=== PATIENT | female | born 1965 | race Caucasian/White ===

== ENCOUNTER 2017-07-18 20:23 | Observation (INO) ==
[2017-07-18] MEDS ORDERED: 0.9 % Sodium Chloride 1,000 ML IVC ONE (20:37)
[2017-07-18 22:13] LABS: Bilirubin,Urine Negative (Negative); Blood,Urine Negative (Negative); Clarity,Urine Clear (Clear); Color,Urine Yellow (Yellow); Glucose,Urine (UA) Normal (Normal); Ketones,Urine Negative (Negative); Leukocyte Esterase,Urine Negative (Negative); Nitrite,Urine Negative (Negative); Protein,Urine 100 mg/dL (Neg-Trace); Specific Gravity,Urine 1.016 (1.010-1.025); Urobilinogen,Urine Normal (Normal)
[2017-07-18] MEDS ORDERED: Ipratropium/Albuterol Neb 3 ML IH ONE (22:14)
[2017-07-18] MEDS ORDERED: methylPREDNISolone 125 MG/2 ML VIAL IVP ONE (22:14)
[2017-07-18 22:20] LABS: Basophils % 0.3 %; Eosinophils # 0.2 K/mcL (0.0-0.6); Eosinophils % 1.6 %; Hematocrit 41.3 % (35.3-44.9); Hemoglobin 12.3 g/dL (11.5-15.4); Immature Granulocytes % 0.4 % (0-4); Lymphocytes # 4.1 K/mcL (0.6-4.6); Mean Corpuscular HGB Conc 29.8 g/dL (31.6-35.5); Mean Corpuscular Hemoglobin 26.5 pg (28.0-33.3); Mean Corpuscular Volume 88.8 fL (83.0-100.0); Mean Platelet Volume 10.2 fL (9.4-12.4); Monocytes # 0.6 K/mcL (0.0-1.3); Monocytes % 5.1 %; Neutrophils # 6.1 K/mcL (1.6-8.9); Platelet Count 244 K/mcL (140-400); Red Blood Count 4.65 M/mcL (3.82-4.97); Red Cell Distribution Width 15.2 % (11.5-14.5); Segmented Neutrophils % 55.6 %
[2017-07-18 22:21] LABS: Bacteria,Urine None Seen per hpf (None-Few); Hyaline Casts,Urine None Seen per lpf (None-Few); Squamous Epithelial Cell,Urine Moderate per lpf (None-Few); WBC,Urine 0-3 per hpf (0-3)
[2017-07-18 22:22] LABS: Amphetamine Screen,Urine Negative ng/mL (Cutoff=1000); Benzodiazepines Screen,Urine Positive ng/mL (Cutoff=200); Cannabinoid Screen,Urine Positive ng/mL (Cutoff = 50); Cocaine Screen,Urine Negative ng/mL (Cutoff= 300); Opiate Screen,Urine Negative ng/mL (Cutoff=300); Phencyclidine Screen,Urine Negative ng/mL (Cutoff=25)
--- NOTE | 2017-07-18 22:25 | Emergency Department Note ---
Disposition Clinical Impression: Hypoxia, COPD with acute exacerbation Overdose Qualifiers: Encounter type: initial encounter Injury intent: accidental or unintentional Qualified Code(s): T50.901A - Poisoning by unspecified drugs, medicaments and biological substances, accidental (unintentional), initial encounter Disposition: Admitted As Inpatient Condition: Good Referrals: NONE,PCP [Primary Care Provider] - Forms: Work/School Release, ED Satisfaction Letter Time of Disposition: 22:49 General Adult HPI - General Chief complaint: ED General Medical Stated complaint: unresponsive Time Seen by Provider: 07/18/17 20:37 Source: EMS Limitations: altered mental status Nursing Notes Reviewed: Yes Vital Signs Reviewed: Yes - History of Present Illness HPI Narrative: 52 year old female presents to the ED via EMS for unresponsiveness. Patient has a history of opiate overdose and was found unresponsive by a family member unsure for how long she was down. [place] original pusle was 76% and then placed on a nonrebreather and came back up to 96% afer administeration of 4 narcan. Jacob is drowsy upon arrival and difficult historian due to slow response, although answering questions and protecting airway. Jacob denies opitate overdose although family member at bedside confirms it. Jacob states tht she has pain all over and that she is short of breth and has a history f of COPD. She is wheezing on exam. Patient chest pain is midsternal and radaites into her back and her abodmen, associated with shortness of breath, nausea, and vomitting. Pain Scale: 9 - Related Data Allergies Allergy/AdvReac Type Severity Reaction Status Date / Time No Known Allergies Allergy Verified 07/18/17 22:41 Constitutional: Reports: fever, chills, weakness. Denies: weight change Eyes: Denies: eye pain, eye discharge, vision change ENT ED: Denies: ear pain, throat pain, dental pain, hearing loss, epistaxis, congestion, dysphagia Cardiovascular: Reports: chest pain. Denies: palpitations, dyspnea on exertion , edema, syncope Respiratory: Denies: cough, dyspnea, wheezes, hemoptysis, stridor Gastrointestinal: Reports: abdominal pain, nausea, vomiting. Denies: diarrhea, constipation, hematemesis, melena, hematochezia Genitourinary: Denies: dysuria, frequency, hematuria, discharge Musculoskeletal: Reports: back pain. Denies: neck pain, arthralgia, myalgia Integumentary: Denies: rash, abrasion, lesions Neurological: Denies: headache, weakness, numbness, paresthesias, confusion, abnormal gait, vertigo Psychiatric: Denies: anxiety, depression, suicidal thoughts, homicidal thoughts , auditory hallucinations, visual hallucinations Endocrine: Denies: fatigue Hematological/Lymphatic: Denies: easy bleeding, easy bruising Allergic/Immunologic: Denies: facial swelling, urticaria Past Medical History - Past Medical History Medical history: Reports: non-contributory, COPD, CVA Psychiatric history: Reports: anxiety, depression - Social History Smoking Status: Current every day smoker Smokeless Tobacco Status: No Alcohol use: Reports: none Drug use: Reports: prescription drug abuse Physical Exam - General Limitations: altered mental status General appearance: obtunded - Head Head exam: atraumatic, normocephalic, normal inspection - Eye Eye exam: Present: normal appearance, PERRL, EOMI, miosis - Expanded Eye Exam Pupils: Left: reactive - ENT ENT exam: normal exam, normal oropharynx, mucous membranes moist - Expanded ENT Exam External ear exam: Present: normal external inspection Mouth exam: Present: normal external inspection Teeth exam: Present: normal inspection Throat exam: Present: normal inspection - Neck Neck exam: Present: normal inspection, full ROM, trachea midline - Chest Chest inspection: Present: normal inspection, symmetric chest wall rise - Respiratory Respiratory exam: Present: wheezes - Cardiovascular Cardiovascular exam: Present: regular rate, normal rhythm, normal heart sounds - Abdominal Exam Abdominal exam: Present: soft, Non-Tender. Absent: tenderness, distention, guarding, rebound, rigidity - Extremities Exam Extremities exam: Present: normal inspection, full ROM. Absent: tenderness, pedal edema - Expanded Upper Extremity Exam Shoulder exam: Present: normal inspection, full ROM Arm exam: Present: normal inspection, full ROM Elbow exam: Present: normal inspection, full ROM Forearm/Wrist exam: Present: normal inspection, full ROM Hand exam: Present: normal inspection, full ROM Vascular exam: Normal: capillary refill, radial pulse - Expanded Lower Extremity Exam Hip/Pelvis exam: Present: normal inspection, full ROM Upper leg exam: Present: normal inspection, full ROM Knee exam: Present: normal inspection, full ROM Lower leg exam: Present: normal inspection, full ROM Ankle exam: Present: normal inspection, full ROM Foot/toe exam: Present: normal inspection, full ROM Neurovascular/Tendon exam: Absent: motor deficit, sensory deficit, tendon deficit Gait: not tested/not observed - Back Exam Back exam: Present: normal inspection, full ROM. Absent: tenderness - Neurological Exam Neurological exam: Present: alert, oriented X3 - Expanded Neurological Exam Patient oriented to: Present: person, place, time Speech: Present: fluid speech Cranial nerves: EOM function (II, III, IV, ): Normal, facial sensation (V): Normal, facial palsy (VII): Normal, gag reflex (IX): Normal, spinal accessory function (XI): Normal, tongue deviation (XII): Normal Cerebellar function: finger to nose: Normal Motor strength - LUE: 4/5 Motor strength - RUE: 4/5 Motor strength - LLE: 4/5 Motor strength - RLE: 4/5 Upper motor neuron exam: riley neglect: Absent bilaterally, pronator drift: Absent bilaterally Sensory exam upper extremity: light touch: Normal, pin prick: Normal Sensory exam lower extremity: light touch: Normal, pin prick: Normal Coma Scale Eye Opening: Spontaneous Coma Scale Motor Response: Obeys Commands Coma Scale Verbal Response: Oriented Coma Scale Total: 15 - Psychiatric Psychiatric exam: Present: normal affect, normal mood - Skin Skin exam: Present: warm, dry, intact, normal color Course Course Narrative: we will do an altered mental status workup on patient. opitate overdose may be a component of this, although we need to rule out other organix pathology first i.e. sepsis, stroke, intracranial bleed - Reevaluation(s) Reevaluation #1: updated patient on results. And she is agreeable to admsision. Time: 22:48 - Consultations Consultation #1: discussed case with Dr. Crowe and he has acceptd patinet for dmission to his service Time: 22:48 Vital Signs Temperature 98.5 F 07/18/17 20:27 Pulse Rate 71 07/18/17 20:27 Respiratory Rate 16 07/18/17 20:27 Blood Pressure 150/110 07/18/17 20:27 O2 Sat by Pulse Oximetry 99 07/18/17 20:27 Temperature 98.5 F 07/18/17 20:27 Pulse Rate 67 07/18/17 22:23 Respiratory Rate 22 07/18/17 22:23 Blood Pressure 159/116 07/18/17 22:23 O2 Sat by Pulse Oximetry 99 07/18/17 22:23 Oxygen Delivery Oxygen Delivery Nasal Cannula Medical Decision Making - Lab Data Result diagrams: 07/18/17 22:11 07/18/17 22:11 Lab Results 07/18/17 07/18/17 07/18/17 Range/Units 21:30 22:01 22:01 WBC (4.3-11.1) K/mcL RBC (3.82-4.97) M/mcL Hgb (11.5-15.4) g/dL Hct (35.3-44.9) % MCV (83.0-100.0) fL MCH (28.0-33.3) pg MCHC (31.6-35.5) g/dL RDW (11.5-14.5) % Plt Count (140-400) K/mcL MPV (9.4-12.4) fL Immature Gran % (0-4) % Seg Neutrophils % % Lymphocytes % % Monocytes % % Eosinophils % % Basophils % % Neutrophils # (1.6-8.9) K/mcL Lymphocytes # (0.6-4.6) K/mcL Monocytes # (0.0-1.3) K/mcL Eosinophils # (0.0-0.6) K/mcL Basophils # (0.0-0.2) K/mcL PT (9.4-12.1) Seconds INR APTT (26.0-36.0) Seconds ABG pH 7.37 (7.32-7.45) pH Units ABG pCO2 44 (35-45) mmHg ABG pO2 77 L (85-104) mmHg ABG HCO3 25 (21-27) mEq/L ABG Total CO2 26.8 H (20-26) mEq/L ABG O2 Saturation 95 (95-98) % ABG Base Excess -0.1 (-2.0 to 3.0) mEq/L Liter Flow 2 L/MIN Blood Gas Modality NC Inspired O2 28 % Sodium (136-145) mEq/L Potassium (3.5-4.5) mEq/L Chloride (98-109) mEq/L Carbon Dioxide (19-29) mEq/L BUN (7-20) mg/dL Creatinine (0.57-1.11) mg/dL Est GFR ( Amer) (> 60) Est GFR (Non-Af Amer) (> 60) BUN/Creatinine Ratio (6-26) Glucose (70-99) mg/dL Calculated Osmolality (280-300) Calcium (8.6-10.8) mg/dL Total Bilirubin (0.2-1.2) mg/dL Direct Bilirubin (0.0-0.5) mg/dL Indirect Bilirubin (0.0-1.2) mg/dL AST (5-34) Units/L ALT (0-55) Units/L Alkaline Phosphatase (38-126) Units/L Troponin I (0-0.03) ng/mL Serum Total Protein (6.0-8.3) g/dL Albumin (3.5-5.0) g/dL Globulin (2.4-3.5) g/dL Albumin/Globulin Ratio (1.1-2.2) Urine Color Yellow (Yellow) Urine Clarity Clear (Clear) Urine pH 6.0 (5.0-8.0) pH Units Ur Specific [place] 1.016 (1.010-1.025) Urine Protein 100 H (Neg-Trace) mg/dL Urine Glucose (UA) Normal (Normal) mg/dL Urine Ketones Negative (Negative) mg/dL Urine Blood Negative (Negative) Urine Nitrite Negative (Negative) Urine Bilirubin Negative (Negative) Urine Urobilinogen Normal (Normal) mg/dL Ur Leukocyte Esterase Negative (Negative) Urine Microscopic RBC 5-15 H (0-3) per hpf Urine Microscopic WBC 0-3 (0-3) per hpf Ur Squamous Epith Cells Moderate H (None-Few) per lpf Urine Bacteria None Seen (None-Few) per hpf Hyaline Casts None Seen (None-Few) per lpf Ur Culture Indicated? NO (NO) Salicylates (15-30) mg/dL Urine Opiates Screen Negative (Kazxbw=610) ng/mL Acetaminophen (10-30) mcg/mL Ur Barbiturates Screen Positive H (Gkzfpb=056) ng/mL Ur Phencyclidine Scrn Negative (Cutoff=25) ng/mL Ur Amphetamines Screen Negative (Mlwyji=6187) ng/mL U Benzodiazepines Scrn Positive H (Vizhmf=178) ng/mL Urine Cocaine Screen Negative (Cutoff= 300) ng/mL U Marijuana (THC) Screen Positive H (Cutoff = 50) ng/mL Ethyl Alcohol (0-10) mg/dL 07/18/17 07/18/17 07/18/17 Range/Units 22:11 22:11 22:11 WBC 10.9 (4.3-11.1) K/mcL RBC 4.65 (3.82-4.97) M/mcL Hgb 12.3 (11.5-15.4) g/dL Hct 41.3 (35.3-44.9) % MCV 88.8 (83.0-100.0) fL MCH 26.5 L (28.0-33.3) pg MCHC 29.8 L (31.6-35.5) g/dL RDW 15.2 H (11.5-14.5) % Plt Count 244 (140-400) K/mcL MPV 10.2 (9.4-12.4) fL Immature Gran % 0.4 (0-4) % Seg Neutrophils % 55.6 % Lymphocytes % 37.0 % Monocytes % 5.1 % Eosinophils % 1.6 % Basophils % 0.3 % Neutrophils # 6.1 (1.6-8.9) K/mcL Lymphocytes # 4.1 (0.6-4.6) K/mcL Monocytes # 0.6 (0.0-1.3) K/mcL Eosinophils # 0.2 (0.0-0.6) K/mcL Basophils # 0.0 (0.0-0.2) K/mcL PT 11.4 (9.4-12.1) Seconds INR 1.1 APTT 33.6 (26.0-36.0) Seconds ABG pH (7.32-7.45) pH Units ABG pCO2 (35-45) mmHg ABG pO2 (85-104) mmHg ABG HCO3 (21-27) mEq/L ABG Total CO2 (20-26) mEq/L ABG O2 Saturation (95-98) % ABG Base Excess (-2.0 to 3.0) mEq/L Liter Flow L/MIN Blood Gas Modality Inspired O2 % Sodium 145 (136-145) mEq/L Potassium 3.3 L (3.5-4.5) mEq/L Chloride 114 H (98-109) mEq/L Carbon Dioxide 24 (19-29) mEq/L BUN 8 (7-20) mg/dL Creatinine 0.71 (0.57-1.11) mg/dL Est GFR ( Amer) > 60 (> 60) Est GFR (Non-Af Amer) > 60 (> 60) BUN/Creatinine Ratio 11 (6-26) Glucose 87 (70-99) mg/dL Calculated Osmolality 298 (280-300) Calcium 8.2 L (8.6-10.8) mg/dL Total Bilirubin < 0.2 L (0.2-1.2) mg/dL Direct Bilirubin 0.1 (0.0-0.5) mg/dL Indirect Bilirubin 0.1 (0.0-1.2) mg/dL AST 10 (5-34) Units/L ALT < 6 (0-55) Units/L Alkaline Phosphatase 51 (38-126) Units/L Troponin I (0-0.03) ng/mL Serum Total Protein 5.9 L (6.0-8.3) g/dL Albumin 2.5 L (3.5-5.0) g/dL Globulin 3.4 (2.4-3.5) g/dL Albumin/Globulin Ratio 0.7 L (1.1-2.2) Urine Color (Yellow) Urine Clarity (Clear) Urine pH (5.0-8.0) pH Units Ur Specific [place] (1.010-1.025) Urine Protein (Neg-Trace) mg/dL Urine Glucose (UA) (Normal) mg/dL Urine Ketones (Negative) mg/dL Urine Blood (Negative) Urine Nitrite (Negative) Urine Bilirubin (Negative) Urine Urobilinogen (Normal) mg/dL Ur Leukocyte Esterase (Negative) Urine Microscopic RBC (0-3) per hpf Urine Microscopic WBC (0-3) per hpf Ur Squamous Epith Cells (None-Few) per lpf Urine Bacteria (None-Few) per hpf Hyaline Casts (None-Few) per lpf Ur Culture Indicated? (NO) Salicylates < 5.0 L (15-30) mg/dL Urine Opiates Screen (Rairgo=253) ng/mL Acetaminophen 32.0 H (10-30) mcg/mL Ur Barbiturates Screen (Nxmuqx=269) ng/mL Ur Phencyclidine Scrn (Cutoff=25) ng/mL Ur Amphetamines Screen (Wrdtik=9274) ng/mL U Benzodiazepines Scrn (Dwqtkv=457) ng/mL Urine Cocaine Screen (Cutoff= 300) ng/mL U Marijuana (THC) Screen (Cutoff = 50) ng/mL Ethyl Alcohol < 10 (0-10) mg/dL 07/18/17 Range/Units 22:11 WBC (4.3-11.1) K/mcL RBC (3.82-4.97) M/mcL Hgb (11.5-15.4) g/dL Hct (35.3-44.9) % MCV (83.0-100.0) fL MCH (28.0-33.3) pg MCHC (31.6-35.5) g/dL RDW (11.5-14.5) % Plt Count (140-400) K/mcL MPV (9.4-12.4) fL Immature Gran % (0-4) % Seg Neutrophils % % Lymphocytes % % Monocytes % % Eosinophils % % Basophils % % Neutrophils # (1.6-8.9) K/mcL Lymphocytes # (0.6-4.6) K/mcL Monocytes # (0.0-1.3) K/mcL Eosinophils # (0.0-0.6) K/mcL Basophils # (0.0-0.2) K/mcL PT (9.4-12.1) Seconds INR APTT (26.0-36.0) Seconds ABG pH (7.32-7.45) pH Units ABG pCO2 (35-45) mmHg ABG pO2 (85-104) mmHg ABG HCO3 (21-27) mEq/L ABG Total CO2 (20-26) mEq/L ABG O2 Saturation (95-98) % ABG Base Excess (-2.0 to 3.0) mEq/L Liter Flow L/MIN Blood Gas Modality Inspired O2 % Sodium (136-145) mEq/L Potassium (3.5-4.5) mEq/L Chloride (98-109) mEq/L Carbon Dioxide (19-29) mEq/L BUN (7-20) mg/dL Creatinine (0.57-1.11) mg/dL Est GFR ( Amer) (> 60) Est GFR (Non-Af Amer) (> 60) BUN/Creatinine Ratio (6-26) Glucose (70-99) mg/dL Calculated Osmolality (280-300) Calcium (8.6-10.8) mg/dL Total Bilirubin (0.2-1.2) mg/dL Direct Bilirubin (0.0-0.5) mg/dL Indirect Bilirubin (0.0-1.2) mg/dL AST (5-34) Units/L ALT (0-55) Units/L Alkaline Phosphatase (38-126) Units/L Troponin I 0.00 (0-0.03) ng/mL Serum Total Protein (6.0-8.3) g/dL Albumin (3.5-5.0) g/dL Globulin (2.4-3.5) g/dL Albumin/Globulin Ratio (1.1-2.2) Urine Color (Yellow) Urine Clarity (Clear) Urine pH (5.0-8.0) pH Units Ur Specific [place] (1.010-1.025) Urine Protein (Neg-Trace) mg/dL Urine Glucose (UA) (Normal) mg/dL Urine Ketones (Negative) mg/dL Urine Blood (Negative) Urine Nitrite (Negative) Urine Bilirubin (Negative) Urine Urobilinogen (Normal) mg/dL Ur Leukocyte Esterase (Negative) Urine Microscopic RBC (0-3) per hpf Urine Microscopic WBC (0-3) per hpf Ur Squamous Epith Cells (None-Few) per lpf Urine Bacteria (None-Few) per hpf Hyaline Casts (None-Few) per lpf Ur Culture Indicated? (NO) Salicylates (15-30) mg/dL Urine Opiates Screen (Wtkptb=912) ng/mL Acetaminophen (10-30) mcg/mL Ur Barbiturates Screen (Xpkwtc=117) ng/mL Ur Phencyclidine Scrn (Cutoff=25) ng/mL Ur Amphetamines Screen (Eateut=0584) ng/mL U Benzodiazepines Scrn (Keylmy=165) ng/mL Urine Cocaine Screen (Cutoff= 300) ng/mL U Marijuana (THC) Screen (Cutoff = 50) ng/mL Ethyl Alcohol (0-10) mg/dL - EKG Data EKG #1 EKG attestation: Yes I reviewed and interpreted this EKG. EKG results narrative: NSR with rate of 71. NO STEMI. normal intervals. no change from 04/19/14. 2026
[2017-07-18 22:26] LABS: INR 1.1; Prothrombin Time 11.4 Seconds (9.4-12.1)
[2017-07-18 22:26] LABS: Barbiturate Screen,Urine Positive ng/mL (Cutoff=200)
[2017-07-18 22:28] LABS: Activated Partial Thrombo Time 33.6 Seconds (26.0-36.0)
[2017-07-18] MEDS ORDERED: Aspirin 81 MG TAB.CHEW PO ONE ×2 (22:35→22:38)
[2017-07-18 22:37] LABS: Albumin 2.5 g/dL (3.5-5.0); Albumin/Globulin Ratio 0.7 (1.1-2.2); Alkaline Phosphatase 51 Units/L (38-126); Aspartate Amino Transferase 10 Units/L (5-34); BUN/Creatinine Ratio 11 (6-26); Bilirubin,Direct 0.1 mg/dL (0.0-0.5); Bilirubin,Indirect 0.1 mg/dL (0.0-1.2); Blood Urea Nitrogen 8 mg/dL (7-20); Calcium 8.2 mg/dL (8.6-10.8); Carbon Dioxide 24 mEq/L (19-29); Chloride 114 mEq/L (98-109); Globulin 3.4 g/dL (2.4-3.5); Glucose 87 mg/dL (70-99); Osmolality,Calculated 298 (280-300); Potassium 3.3 mEq/L (3.5-4.5); Sodium 145 mEq/L (136-145); Total Protein 5.9 g/dL (6.0-8.3); eGFR For African Americans > 60 (> 60); eGFR For Non-African Americans > 60 (> 60)
[2017-07-18 22:39] LABS: Alanine Aminotransferase < 6 Units/L (0-55); Bilirubin,Total < 0.2 mg/dL (0.2-1.2); Ethanol < 10 mg/dL (0-10); Salicylate < 5.0 mg/dL (15-30)
[2017-07-18 22:40] LABS: ABG Base Excess -0.1 mEq/L (-2.0 to 3.0); ABG HCO3 25 mEq/L (21-27); ABG Oxygen Saturation 95 % (95-98); ABG PCO2 44 mmHg (35-45); ABG PH 7.37 pH Units (7.32-7.45); ABG PO2 77 mmHg (85-104); ABG TCO2 26.8 mEq/L (20-26); Blood Gas FiO2 28 %; Blood Gas Liter Flow 2 L/MIN
[2017-07-19] MEDS ORDERED: Acetaminophen 325 MG TABLET PO PRN (02:54)
[2017-07-19] MEDS: Ipratropium/Albuterol Neb 3 ML IH SCH ×5 (07:56→23:04)
[2017-07-19] MEDS: methylPREDNISolone 125 MG/2 ML VIAL IVP SCH ×3 (08:25→23:39)
[2017-07-19] MEDS: Aspirin 81 MG TAB.CHEW PO SCH (08:25)
[2017-07-19] MEDS: 0.9 % Sodium Chloride 1,000 ML IVC SCH ×2 (08:26→23:39)
--- NOTE | 2017-07-19 11:17 | Consult Note ---
Date of Encounter: 07/19/17 Time of Encounter: 10:00 Assessment & Recommendation (1) Major depressive disorder, recurrent severe without psychotic features Current visit: Yes Status: Acute Assessment & Recommendation: Patient denies severely depressed mood but did report to staff and family that she has been feeling depressed. Her family she does have a history of an overdose attempt back when her in 1990. At this point it is unclear whether this overdose attempt was recreational or suicide attempt but family members are very concerned for patient's safety. Recommended admit to 1 a once medically stable. [place] slip filled out. Continue one-to-one observation. (2) Anxiety Current visit: Yes Status: Acute Assessment & Recommendation: Patient taking Xanax. Also abusing pain pills per family. Recommend taper of controlled medications and using other medications for anxiety. (3) Substance abuse Current visit: Yes Status: Acute History of Present Illness Patient: new to practice Requesting Physician: Vivian Sweet MD Reason for consult: overdose History of present illness: Ms. Crawford is a 52 year old female with a history of opiate abuse, depression, anxiety, multiple stressors who presented to the hospital after an unknown overdose. Patient was found by her son who reports that he thought she was misusing pain pills and tried to give her time to come around. When she did not improve he called the squad and she came to the hospital. Patient reports that she does not remember what happened and she states that she took for a few her set pills and does not remember anything after this. She denies any recreational pain pill usage or other illicit drug usage. She denies suicidal ideations. She denies any Homicidal ideations. She denies a history of depression but does state that she has had a lot of increased stress lately. One of her sons in June a year ago of a unintentional drug overdose. Her a year and a half ago and she has been struggling with these losses. She does report that she has 14 grandchildren and that is one thing that keeps her from wanting to . She denies any inpatient psychiatric admissions in the past. She denies suicide attempts. Per staff on to [facility] patient had an argument with her sons about speaking to me earlier. She did verbalize to a staff member last night that she intended to kill herself. Patient indicated that I can talk to her sons Jac and Sumeet. This provider called Jac at [phone]. He was hesitant to talk to this provider because he did not want his mother to be upset with him. He is concerned that she is not doing well emotionally. He came home from work yesterday and found her "drugged out." Jac indicated that Sumeet would have more information. This provider called Sumeet at [phone]. Sumeet reports that he is the older brother and most of the time his mother is very open and honest with him. He has noted some serious depression since her recent losses. She has stated in the past that she does not want to live but she did not make statements like this recently, except to hospital staff. He reports that his mother has been using pain pills on and off for many years. He states that she has not routinely overdosed on pills recreationally and he thinks she is aware of how many pills/drugs to take and he is concerned that she did attempt to kill herself. CC: Vivian Sweet MD Past Med Surg Social Fam HX - Past Medical History Medical history: non-contributory, COPD, CVA - Past Psychiatric History Psychiatric history: Reports: anxiety, depression. Denies: prior suicide attempt, previous psychiatric hospitalization Past psychiatric history details: Patient denies prior suicide attempts. She denies inpatient admissions. Patient's older son states that she did attempt to overdose on her cousin's grave in 1990. Family psychiatric history: Yes Family Psychiatric History Details: Substance abuse issues in family. Son unintentionally overdosed a year ago in June. Family History of Suicide: None - Social History Smoking Status: Current every day smoker Smokeless Tobacco Status: No Alcohol use: none Drug use: prescription drug abuse Occupational status: unemployed Current living situation: Home Medications & Allergies ALPRAZolam [Xanax 1 MG Tablet] 1 mg PO BID PRN 07/19/17 [History] ALPRAZolam [Xanax 1 MG Tablet] 1 mg PO BID PRN #1 tablet 07/19/17 [Rx] Budesonide/Formoterol 160/4.5 [Symbicort 160/4.5] 2 puff IH BIDR 07/19/17 [ History] Butalb/Acetaminophen/Caffeine [Fioricet 50-300-40 mg Capsule] 1 cap PO Q4H PRN 07/19/17 [History] Butalbit/Acetamin/Caff/Codeine [Fioricet-Cod 21-954-68-30 Cap] 1 each PO ONCE # 1 capsule 07/19/17 [Rx] Gabapentin [Neurontin] 300 mg PO TID 07/19/17 [History] Ipratropium/Albuterol Neb [Duoneb] 3 ml IH Q6HR PRN 07/19/17 [History] Lisinopril [Zestril] 40 mg PO DAILY 07/19/17 [History] Losartan [Cozaar] 25 mg PO DAILY 07/19/17 [History] Metformin HCl [Glucophage] 1,000 mg PO DAILY 07/19/17 [History] Nitroglycerin [Nitrostat] 0.6 mg SL Q5M PRN 07/19/17 [History] Ondansetron [Zofran] 4 mg IV ONCE #1 vial 07/19/17 [Rx] Promethazine [Phenergan] 25 - 50 mg PO Q6HR PRN 07/19/17 [History] Ranitidine HCl [Acid Clerk General] 150 mg PO BID 07/19/17 [History] Tramadol HCl [Ultram] 50 mg PO Q6H PRN 07/19/17 [History] 3 Allergy/AdvReac Type Severity Reaction Status Date / Time No Known Allergies Allergy Verified 07/18/17 22:41 Review of Systems ROS limited: due to patient condition Psychiatric: Reports: depression, anxiety, abnormal sleep pattern, difficulty concentrating, hopelessness. Denies: suicidal ideation Mental Status Exam Patient orientation: Yes Person, Yes Time, Yes Place Level of alertness: Alert Patient appearance: Unkempt Behavior: calm, guarded Psychomotor activity: Normal Eye contact: Maintains Eye Contact Mood description: Euthymic/stable Affect description: dysphoric, incongruent with mood Speech pattern: Normal rate, Normal rhythm, Normal tone Speech volume: Normal Thought content: Yes Intact, No Suicidal ideation Perceptual disturbances: No Auditory hallucinations, No Visual hallucinations Attention span: Capable of Focused Attention Memory description: Grossly Intact Patient reliability: Not Reliable Historian Intelligence estimate: Average Judgment: Poor Insight: Minimal Results - Vital Signs Vital signs: Temp Pulse Resp BP Pulse Ox 98.5 F 91 16 137/94 98 07/19/17 07:13 07/19/17 07:13 07/19/17 07:57 07/19/17 07:13 07/19/17 10:22 - Labs Labs: Laboratory Last Values WBC 10.9 K/mcL (4.3-11.1) 07/18/17 22:11 RBC 4.65 M/mcL (3.82-4.97) 07/18/17 22:11 Hgb 12.3 g/dL (11.5-15.4) 07/18/17 22:11 Hct 41.3 % (35.3-44.9) 07/18/17 22:11 MCV 88.8 fL (83.0-100.0) 07/18/17 22:11 MCH 26.5 pg (28.0-33.3) L 07/18/17 22:11 MCHC 29.8 g/dL (31.6-35.5) L 07/18/17 22:11 RDW 15.2 % (11.5-14.5) H 07/18/17 22:11 Plt Count 244 K/mcL (140-400) 07/18/17 22:11 MPV 10.2 fL (9.4-12.4) 07/18/17 22:11 Immature Gran % 0.4 % (0-4) 07/18/17 22:11 Seg Neutrophils % 55.6 % 07/18/17 22:11 Lymphocytes % 37.0 % 07/18/17 22:11 Monocytes % 5.1 % 07/18/17 22:11 Eosinophils % 1.6 % 07/18/17 22:11 Basophils % 0.3 % 07/18/17 22:11 Neutrophils # 6.1 K/mcL (1.6-8.9) 07/18/17 22:11 Lymphocytes # 4.1 K/mcL (0.6-4.6) 07/18/17 22:11 Monocytes # 0.6 K/mcL (0.0-1.3) 07/18/17 22:11 Eosinophils # 0.2 K/mcL (0.0-0.6) 07/18/17 22:11 Basophils # 0.0 K/mcL (0.0-0.2) 07/18/17 22:11 PT 11.4 Seconds (9.4-12.1) 07/18/17 22:11 INR 1.1 07/18/17 22:11 APTT 33.6 Seconds (26.0-36.0) 07/18/17 22:11 ABG pH 7.37 pH Units (7.32-7.45) 07/18/17 21:30 ABG pCO2 44 mmHg (35-45) 07/18/17 21:30 ABG pO2 77 mmHg (85-104) L 07/18/17 21:30 ABG HCO3 25 mEq/L (21-27) 07/18/17 21:30 ABG Total CO2 26.8 mEq/L (20-26) H 07/18/17 21:30 ABG O2 Saturation 95 % (95-98) 07/18/17 21:30 ABG Base Excess -0.1 mEq/L (-2.0 to 3.0) 07/18/17 21:30 Liter Flow 2 L/MIN 07/18/17 21:30 Blood Gas Modality DC 07/18/17 21:30 Inspired O2 28 % 07/18/17 21:30 Sodium 145 mEq/L (136-145) 07/18/17 22:11 Potassium 3.3 mEq/L (3.5-4.5) L 07/18/17 22:11 Chloride 114 mEq/L (98-109) H 07/18/17 22:11 Carbon Dioxide 24 mEq/L (19-29) 07/18/17 22:11 BUN 8 mg/dL (7-20) 07/18/17 22:11 Creatinine 0.71 mg/dL (0.57-1.11) 07/18/17 22:11 Est GFR ( Amer) > 60 (> 60) 07/18/17 22:11 Est GFR (Non-Af Amer) > 60 (> 60) 07/18/17 22:11 BUN/Creatinine Ratio 11 (6-26) 07/18/17 22:11 Glucose 87 mg/dL (70-99) 07/18/17 22:11 Calculated Osmolality 298 (280-300) 07/18/17 22:11 Calcium 8.2 mg/dL (8.6-10.8) L 07/18/17 22:11 Total Bilirubin < 0.2 mg/dL (0.2-1.2) L 07/18/17 22:11 Direct Bilirubin 0.1 mg/dL (0.0-0.5) 07/18/17 22:11 Indirect Bilirubin 0.1 mg/dL (0.0-1.2) 07/18/17 22:11 AST 10 Units/L (5-34) 07/18/17 22:11 ALT < 6 Units/L (0-55) 07/18/17 22:11 Alkaline Phosphatase 51 Units/L (38-126) 07/18/17 22:11 Troponin I 0.00 ng/mL (0-0.03) 07/18/17 22:11 Serum Total Protein 5.9 g/dL (6.0-8.3) L 07/18/17 22:11 Albumin 2.5 g/dL (3.5-5.0) L 07/18/17 22:11 Globulin 3.4 g/dL (2.4-3.5) 07/18/17 22:11 Albumin/Globulin Ratio 0.7 (1.1-2.2) L 07/18/17 22:11 Urine Color Yellow (Yellow) 07/18/17 22: Urine Clarity Clear (Clear) 07/18/17 22: Urine pH 6.0 pH Units (5.0-8.0) 07/18/17 22: Ur Specific [place] 1.016 (1.010-1.025) 07/18/17 22:01 Urine Protein 100 mg/dL (Neg-Trace) H 07/18/17 22:01 Urine Glucose (UA) Normal mg/dL (Normal) 07/18/17 22:01 Urine Ketones Negative mg/dL (Negative) 07/18/17 22: Urine Blood Negative (Negative) 07/18/17 22: Urine Nitrite Negative (Negative) 07/18/17 22: Urine Bilirubin Negative (Negative) 07/18/17 22:01 Urine Urobilinogen Normal mg/dL (Normal) 07/18/17 22:01 Ur Leukocyte Esterase Negative (Negative) 07/18/17 22:01 Urine Microscopic RBC 5-15 per hpf (0-3) H 07/18/17 22:01 Urine Microscopic WBC 0-3 per hpf (0-3) 07/18/17 22:01 Ur Squamous Epith Cells Moderate per lpf (None-Few) H 07/18/17 22:01 Urine Bacteria None Seen per hpf (None-Few) 07/18/17 22:01 Hyaline Casts None Seen per lpf (None-Few) 07/18/17 22:01 Ur Culture Indicated? NO (NO) 07/18/17 22:01 Salicylates < 5.0 mg/dL (15-30) L 07/18/17 22:11 Urine Opiates Screen Negative ng/mL (Xkhrrf=468) 07/18/17 22:01 Acetaminophen 32.0 mcg/mL (10-30) H 07/18/17 22:11 Ur Barbiturates Screen Positive ng/mL (Ofowbh=502) H 07/18/17 22:01 Ur Phencyclidine Scrn Negative ng/mL (Cutoff=25) 07/18/17 22:01 Ur Amphetamines Screen Negative ng/mL (Rwmsbl=4683) 07/18/17 22:01 U Benzodiazepines Scrn Positive ng/mL (Xhfmdy=256) H 07/18/17 22:01 Urine Cocaine Screen Negative ng/mL (Cutoff= 300) 07/18/17 22:01 U Marijuana (THC) Screen Positive ng/mL (Cutoff = 50) H 07/18/17 22:01 Ethyl Alcohol < 10 mg/dL (0-10) 07/18/17 22:11 Consult Discharge Plan - Plan Referrals: NONE,PCP [Primary Care Provider] - Prescriptions: ALPRAZolam [Xanax 1 MG Tablet] 1 mg PO BID PRN #1 tablet PRN Reason: Anxiety Butalbit/Acetamin/Caff/Codeine [Fioricet-Cod 19-958-81-30 Cap] 1 each PO ONCE # 1 capsule Ondansetron [Zofran] 4 mg IV ONCE #1 vial
[2017-07-19] MEDS ORDERED: Ondansetron 4 MG/2 ML VIAL IVP ONE (11:20)
[2017-07-19] MEDS ORDERED: Ondansetron 4 MG/2 ML VIAL ONE (11:26)
[2017-07-19] MEDS ORDERED: Acetaminophen/Butalbital/CaffeineTABLET PO ONE (11:59)
[2017-07-19] MEDS: ALPRAZolam 1 MG TABLET PO PRN ×2 (12:18→20:31)
[2017-07-19] MEDS ORDERED: traMADol 50 MG TABLET PO PRN (12:20)
[2017-07-19] MEDS ORDERED: ALPRAZolam 1 MG TABLET PO PRN (12:20)
[2017-07-19] MEDS ORDERED: Nitroglycerin 0.4 MG TAB.SUBL SL PRN (12:20)
[2017-07-19] MEDS ORDERED: Naloxone 0.4 MG/ML INJ IVP PRN (12:23)
[2017-07-19] MEDS ORDERED: *HR* Dextrose 50 % in Water (Syg) 50 ML SYRINGE IVP PRN (12:30)
[2017-07-19] MEDS ORDERED: Dextrose Gel 15 GM PO PRN ×2 (12:30)
[2017-07-19] MEDS ORDERED: D5% in Water 1,000 ML IVC PRN (12:30)
[2017-07-19] MEDS: Gabapentin 300 MG CAPSULE PO SCH ×2 (14:45→20:31)
[2017-07-19] MEDS: traMADol 50 MG TABLET PO PRN ×2 (14:45→21:51)
[2017-07-19] MEDS: *HR* Heparin 5,000 UNIT/ML VIAL SQ SCH ×2 (14:46→20:37)
[2017-07-19] MEDS ORDERED: 0.9 % Sodium Chloride 1,000 ML IVC ONE (16:07)
[2017-07-19] MEDS ORDERED: Acetaminophen 650 MG RECTAL SUPP RC PRN (16:13)
[2017-07-19] MEDS: Ibuprofen 600 MG TABLET PO PRN (16:19)
[2017-07-19] MEDS: *HR* Promethazine 25 MG/ML VIAL IVP PRN ×2 (16:22→23:39)
[2017-07-19] MEDS: Insulin LISPRO 300 UNITS/3 ML VIAL SQ SCH ×2 (16:24→20:31)
[2017-07-19] MEDS: Acetaminophen/Butalbital/CaffeineTABLET PO PRN ×2 (16:57→21:42)
[2017-07-19] MEDS: Azithromycin 500 MG in D5% in Water 250 ML IVPB SCH (16:57)
--- NOTE | 2017-07-19 17:47 | Event Note ---
Date of Encounter: 07/19/17 Time of Encounter: 16:45 I personally interviewed and examined his pt. I reviewed all labs and studies. I discussed the case with BP Sun who will be writing a follow on note. Pt now with evidence of an acute resp infection for which he is receiving IVF, and abx expanded to cover CAP with Rocephin and Azithromycin. Despite fairly nml CXR her lung exam is markedly abnormal.
--- NOTE | 2017-07-19 19:01 | Internal Med History&Physical ---
Date of Encounter: 07/19/17 Time of Encounter: 12:30 Assessment and Plan (1) COPD with acute exacerbation Current visit: Yes Status: Acute Patient presents with exacerbation of COPD versus pneumonia. Patient hypoxic and dyspneic on admission and during examination. On auscultation, patient's lungs have diminished lung sounds with rhonchi scattered bilaterally. Patient placed on supplemental O2 with titration if SPO2 less than 92% and continuous SaO2 monitoring. DuoNeb was ordered every 4 scheduled. Methylprednisolone 60 mg every 8 ordered. (2) CAP (community acquired pneumonia) Current visit: Yes Status: Acute Patient presents with suspected pneumonia based on current symptoms and increasing fever. Pneumonia most likely CAP versus aspiration since patient was found unresponsive for an unknown period of time. Single view of the chest today shows no acute cardiopulmonary disease, however patient is dyspneic with rhonchi on auscultation and diminished breath sounds. IV Rocephin and IV azithromycin ordered for infection coverage. Supplemental O2 with continuous SPO2 monitoring. DuoNeb every 4 scheduled. Methylprednisolone 60 mg every 8 ordered. Follow-up labs ordered to monitor infection status. Qualifiers: Laterality: unspecified laterality Qualified Code(s): J18.9 - Pneumonia, unspecified organism (3) Hypocalcemia Current visit: Yes Status: Acute Patient presents with acute hypocalcemia with calcium level of 8.2 on admission. Calcium carbonate 1000 mg 3 times a day by mouth ordered. Will monitor patient's calcium status and follow-up labs. (4) Hypokalemia Current visit: Yes Status: Acute Patient resents with acute hypokalemia on admission with potassium level of 3.3. Potassium 40 mEq by mouth ordered once. Will monitor patient's follow-up labs for potassium level. (5) Hypoxia Current visit: Yes Status: Acute Patient presents with acute hypoxia with SpO2 of 76% on arrival to ED which was brought up to 96% after Narcan dosing and non-rebreather mask. Patient placed on supplemental O2 with titration if SpO2 <92% and continuous SpO2 monitoring. DuoNebs ordered Q4 scheduled. Methylprednisolone IVP 60 mg Q8 daily ordered. ABG ordered. (6) Substance abuse Current visit: Yes Status: Acute Patient presents with history of substance abuse. Patient was found to be unresponsive by family and brought to the ED. Patient denies overdose or suicidal intent/ideation. Patient's tox screen positive for 32.0 acetaminophen, barbituates, benzodiazepines, and marijuana. SW consult ordered to assess for rehab needs post-discharge. Nutrition consult ordered for patient who is underweight. (7) Diabetes Current visit: Yes Status: Chronic Patient presents with history of chronic diabetes type II controlled with oral anti-hyperglycemic medication. Will hold patient's glucophage and administer low -dose correction sliding scale insulin with hypoglycemic protocol. Blood glucose ACHS. A1c ordered. Qualifiers: Diabetes mellitus type: type 2 Diabetes mellitus complication status: with unspecified complications Diabetes mellitus fdc insulin use: without parts counterman use Qualified Code(s): E11.8 - Type 2 diabetes mellitus with unspecified complications (8) HTN (hypertension) Current visit: Yes Status: Chronic Patient presents with history of chronic HTN. Monitor patient and VS and continue Cozaar. Qualifiers: Hypertension type: essential hypertension Qualified Code(s): I10 - Essential (primary) hypertension (9) HLD (hyperlipidemia) Current visit: Yes Status: Chronic Patient has history of chronic HLD but does not currently take HLD medications. Lipid panel ordered. Qualifiers: Hyperlipidemia type: pure hypercholesterolemia Qualified Code(s): E78.00 - Pure hypercholesterolemia, unspecified; E78.0 - Pure hypercholesterolemia (10) Migraine Current visit: Yes Status: Chronic Patient presents with history of chronic migraine. Will monitor patient and continue Fioricet. Qualifiers: Migraine type: unspecified Status migrainosus presence: without status migrainosus Intractability: not intractable Qualified Code(s): G43.909 - Migraine, unspecified, not intractable, without status migrainosus (11) Anxiety Current visit: Yes Status: Chronic Patient presents with history of chronic anxiety and depression. Will continue patient's Xanax. (12) DVT prophylaxis Current visit: Yes Status: Acute Patient to be placed on DVT prophylaxis due to current admission protocol and bed rest status. Heparin 5,000 units SQ Q8 ordered. Internal Medicine - H&P: HPI Chief complaint: Unresponsive/AMS Admitted From: Emergency Dept Plans for Post Hospital Care: Home History of present illness: Ms. Crawford is a 52 year old female with medical history of COPD, diabetes, HTN , HLD, migraine, and psoriasis presents from the ED with unresponsive status as found by her family. Patient has history of opiate overdose and substance abuse family is unsure how long she was unresponsive. Patient was originally drowsy on arrival to ED and short of breath. Patient's original SpO2 on arrival was 76% which increased to 96% on nonrebreather mask and after administration of Narcan. Patient reports abdominal pain, nausea, vomiting, chest discomfort, fever, and weakness. Patient denies vision changes, palpitations, edema, diarrhea, constipation, weakness, numbness, confusion, presyncope, or syncope. After admission to the ED, patient's vital signs include temperature 98.5 F, heart rate is 71 bpm respiratory rate 16, BP 150/110 , and SPO2 99% with O2 via nasal cannula. Abnormal labs include ABG total CO2 26.8 potassium 3.3, calcium of 8.2. Initial troponin 0.00. Urine tox screen showed acetaminophen 32.0, and was positive for opiates, benzodiazepines, marijuana. On examination, patient's heart rate is RRR and lungs have diminished breath sounds and rhonchi bilaterally on auscultation. Patient is tearful and dyspneic during examination but denies overdose or suicidal ideation. Patient does report taking unknown drug that a friend gave her. Patient is hemodynamically stable but reports shortness of breath and dyspnea with chest discomfort on inspiration. Information taken from patient, previous medical records, chart review, and imaging. Patient is at high risk for respiratory distress and further morbidity based on current symptoms, positive tox screen, and risk factors and will be placed as observation status. Time spent with patient greater than 40 minutes. Past Med Surg Social Fam HX - Past Medical History Source: patient, old records reviewed Medical history: non-contributory, COPD, diabetes, hyperlipidemia, hypertension , migraine, other (psoriasis) Psychiatric history: anxiety, depression - Social History Smoking Status: Current every day smoker Packs per day: 3 cigarettes/day Smokeless Tobacco Status: No Alcohol use: none Drug use: prescription drug abuse Current living situation: Home Activity Level: Independent ambulation Recent Out of Country Travel Within the Last 8 Weeks: No Exposure or Possible Exposure to Illness During Travel: No - Family History Father History Unknown: Yes Race: Family Member Ethnicity: Non- Living Status: Mother Race: Family Member Ethnicity: Non- Living Status: Age at : 56 Cause of : Stroke Hx Family Cardiac Disorders: Yes (DE, Stroke) Hx Family Cancer: Yes (Breast cancer) Hx Family Endocrine Disorder: Yes (DM) Brother Race: Family Member Ethnicity: Non- Living Status: Still Living Hx Family Medical Disorders: No Sister Race: Family Member Ethnicity: Non- Living Status: Still Living Hx Family Cancer: Yes (Cervical cancer) Internal Medicine - H&P: Meds ALPRAZolam [Xanax 1 MG Tablet] 1 mg PO BID PRN 07/19/17 [History] ALPRAZolam [Xanax 1 MG Tablet] 1 mg PO BID PRN #1 tablet 07/19/17 [Rx] Budesonide/Formoterol 160/4.5 [Symbicort 160/4.5] 2 puff IH BIDR 07/19/17 [ History] Butalb/Acetaminophen/Caffeine [Fioricet 50-300-40 mg Capsule] 1 cap PO Q4H PRN 07/19/17 [History] Butalbit/Acetamin/Caff/Codeine [Fioricet-Cod 98-267-81-30 Cap] 1 each PO ONCE # 1 capsule 07/19/17 [Rx] Gabapentin [Neurontin] 300 mg PO TID 07/19/17 [History] Ipratropium/Albuterol Neb [Duoneb] 3 ml IH Q6HR PRN 07/19/17 [History] Lisinopril [Zestril] 40 mg PO DAILY 07/19/17 [History] Losartan [Cozaar] 25 mg PO DAILY 07/19/17 [History] Metformin HCl [Glucophage] 1,000 mg PO DAILY 07/19/17 [History] Nitroglycerin [Nitrostat] 0.6 mg SL Q5M PRN 07/19/17 [History] Ondansetron [Zofran] 4 mg IV ONCE #1 vial 07/19/17 [Rx] Promethazine [Phenergan] 25 - 50 mg PO Q6HR PRN 07/19/17 [History] Ranitidine HCl [Acid Cigar Tobacco Rehandler] 150 mg PO BID 07/19/17 [History] Tramadol HCl [Ultram] 50 mg PO Q6H PRN 07/19/17 [History] 3 Allergy/AdvReac Type Severity Reaction Status Date / Time No Known Allergies Allergy Verified 07/18/17 22:41 All Systems PM: A 10-system review of systems was performed and is negative for pertinent findings except as documented above in the HPI. - Constitutional Constitutional: as per HPI, weakness, no chills, no fever(s), no night sweats - EENT Eyes: no change in vision, no discharge, no pain, no photophobia Ears: no ear discharge, no ear pain, no tinnitus Nose, mouth and throat: no dysphagia, no nasal discharge, no neck pain, no sore throat - Breasts Breasts: as per HPI - Cardiovascular Cardiovascular ROS IM: as per HPI, dyspnea, dyspnea on exertion, no chest pain, no diaphoresis, no lightheadedness, no palpitations, no syncope - Respiratory Respiratory: as per HPI, dyspnea, dyspnea on exertion - Gastrointestinal Gastrointestinal: no abdominal pain, no diarrhea, no hematemesis, no hematochezia, no melena, no nausea, no vomiting - Genitourinary Genitourinary: no change in urinary stream, no dysuria, no flank pain, no hematuria Menstruation: as per HPI - Musculoskeletal Musculoskeletal ROS IM: no numbness, no tingling - Integumentary Integumentary IM: no rash, no unusual bruising - Neurological Neurological ROS: as per HPI, weakness, no confusion, no convulsions, no focal weakness, no numbness, no tingling, no tremor(s) - Psychiatric Psychiatric: as per HPI, anxiety, depression - Endocrine Endocrine IM: as per HPI - Hematologic/Lymphatic Hematologic/Lymphatic: no easy bruising - Allergic/Immunologic Allergic/Immunologic: as per HPI - Constitutional Vitals: Temp Pulse Resp BP Pulse Ox 98.9 F 102 24 147/98 96 07/19/17 18:29 07/19/17 18:29 07/19/17 18:29 07/19/17 18:29 07/19/17 18:29 General appearance: Present: cooperative, disheveled, mild distress, A&O X 3, pleasant, underweight, answers questions appropriately - Head Head exam: Present: atraumatic, normocephalic - Eye Eye exam: Present: PERRL, conjuntiva pink, sclera anicteric Pupils: Present: PERRL - ENT ENT exam: Present: normal exam, normal external ear exam - Neck Neck exam general surgery: Present: normal inspection, supple, trachea midline. Absent: lymphadenopathy - Respiratory Respiratory exam: Present: accessory muscle use, decreased breath sounds, respiratory distress, rhonchi - Cardiovascular Cardiovascular exam: Present: RRR, +S1, +S2. Absent: diastolic murmur, gallop, rubs, systolic murmur - GI/Abdominal GI/Abdominal exam: Present: normal bowel sounds, soft, no peritoneal signs. Absent: distended, tenderness - Rectal Rectal exam: Present: deferred - Additional comments: exam deferred. - Extremities Exam Extremities exam: Present: warm, radial pulses palpable and symmetrical. Absent : calf tenderness, cyanotic, pedal edema - Back Exam Back exam: Present: normal inspection - Neurological Exam Neurological exam: Present: alert, oriented X3, no focal deficits, strengths equal and symetr throughout - Psychiatric Psychiatric exam: Present: anxious - Skin Skin exam: Present: dry, intact Internal Med - H&P Results - Labs CBC & Chem 7: 07/18/17 22:11 07/18/17 22:11 - EKG Data EKG shows normal: sinus rhythm - EKG Data Prior EKG available for review: yes When compared to previous EKG: there is no significant change EKG comments: 07/19/17 19:10 EKG dated 04/19/14 shows sinus rhythm within normal limits. Normal ECG. EKG dated 07/19/17 shows sinus rhythm, or malaise reversed. Atypical ECG. - Diagnostic Studies Chest x-ray Additional comments: Impressions Chest X-Ray 07/18/17 20:37 IMPRESSION: No acute cardiopulmonary disease. D/ / Sumeet Hopson MD / Sumeet Hopson MD Interpreting Provider: Sumeet Hopson MD CT scan - head Additional comments: Impressions Head CT 07/18/17 20:38 IMPRESSION: Small prior lacunar infarcts are suggested in the anterior limbs of the internal capsules. There is questionable low density in the left thalamus Otherwise no acute abnormality noted. D/ / Sumeet Hankins / Sumeet Hankins Interpreting Provider: Sumeet Hankins Other Images Additional comments: Impressions Cervical Spine CT 07/18/17 20:38 IMPRESSION: No acute abnormality of the cervical spine. Study was motion degraded. D/ / Sumeet Hopson MD / Sumeet Hopson MD Interpreting Provider: Sumeet Hopson MD
[2017-07-19] MEDS: Ondansetron 4 MG/2 ML VIAL IVP PRN (20:31)
[2017-07-19] MEDS: Pantoprazole 40 MG VIAL IVP SCH (20:31)
[2017-07-19] MEDS: Budesonide/Formoterol 160/4.5 MDI IH SCH (20:36)
[2017-07-20] MEDS ORDERED: Furosemide 40 MG/4 ML VIAL ONE (00:02)
[2017-07-20] MEDS ORDERED: Furosemide 40 MG/4 ML VIAL IVP ONE (00:08)
[2017-07-20] MEDS ORDERED: *HR* Morphine 2 MG/ML SYRINGE IVP ONE (00:09)
[2017-07-20] MEDS ORDERED: Ipratropium/Albuterol Neb 3 ML IH PRN (00:11)
[2017-07-20] MEDS ORDERED: *HR* Morphine 2 MG/ML SYRINGE ONE (00:14)
[2017-07-20] MEDS ORDERED: Ipratropium/Albuterol Neb 3 ML ONE (00:29)
[2017-07-20] MEDS: Acetaminophen/Butalbital/CaffeineTABLET PO PRN ×5 (03:07→22:09)
[2017-07-20] MEDS: Ipratropium/Albuterol Neb 3 ML IH SCH ×6 (04:12→23:19)
[2017-07-20] MEDS: Ondansetron 4 MG/2 ML VIAL IVP PRN ×3 (04:39→21:47)
[2017-07-20] MEDS: traMADol 50 MG TABLET PO PRN ×3 (04:39→23:30)
[2017-07-20] MEDS: *HR* Heparin 5,000 UNIT/ML VIAL SQ SCH ×2 (04:39→14:19)
[2017-07-20 05:43] LABS: Basophils % 0.1 %; Hematocrit 39.1 % (35.3-44.9); Hemoglobin 12.1 g/dL (11.5-15.4); Immature Granulocytes % 0.6 % (0-4); Lymphocytes # 1.2 K/mcL (0.6-4.6); Mean Corpuscular HGB Conc 30.9 g/dL (31.6-35.5); Mean Corpuscular Hemoglobin 26.8 pg (28.0-33.3); Mean Corpuscular Volume 86.5 fL (83.0-100.0); Mean Platelet Volume 10.9 fL (9.4-12.4); Monocytes # 0.4 K/mcL (0.0-1.3); Monocytes % 1.8 %; Neutrophils # 22.4 K/mcL (1.6-8.9); Platelet Count 242 K/mcL (140-400); Red Blood Count 4.52 M/mcL (3.82-4.97); Red Cell Distribution Width 15.4 % (11.5-14.5); Segmented Neutrophils % 92.5 %
[2017-07-20 05:48] LABS: Prothrombin Time 11.2 Seconds (9.4-12.1)
[2017-07-20 05:50] LABS: Activated Partial Thrombo Time 32.7 Seconds (26.0-36.0)
[2017-07-20 06:05] LABS: Platelet Estimate Normal (Normal); Reactive Lymphocytes Present (Not Present)
[2017-07-20] MEDS: Ibuprofen 600 MG TABLET PO PRN (06:16)
[2017-07-20] MEDS: ALPRAZolam 1 MG TABLET PO PRN ×2 (06:17→18:13)
[2017-07-20 06:25] LABS: Alanine Aminotransferase < 6 Units/L (0-55); Alkaline Phosphatase 54 Units/L (38-126); BUN/Creatinine Ratio 15 (6-26); Bilirubin,Total 0.3 mg/dL (0.2-1.2); Blood Urea Nitrogen 10 mg/dL (7-20); Calcium 9.4 mg/dL (8.6-10.8); Carbon Dioxide 24 mEq/L (19-29); Chloride 106 mEq/L (98-109); Chol/HDL Ratio 3.7 (0-4.9); Cholesterol 206 mg/dL (< 200); Glucose 147 mg/dL (70-99); HDL Cholesterol 56 mg/dL (40-59); LDL Cholesterol,Calculated 122 mg/dL (0-99); Magnesium 1.5 mg/dL (1.6-2.6); Osmolality,Calculated 294 (280-300); Potassium 3.5 mEq/L (3.5-4.5); Sodium 141 mEq/L (136-145); Total Protein 6.6 g/dL (6.0-8.3); Triglycerides 140 mg/dL (< 150); eGFR For African Americans > 60 (> 60); eGFR For Non-African Americans > 60 (> 60)
[2017-07-20 06:51] LABS: Aspartate Amino Transferase 7 Units/L (5-34)
[2017-07-20 07:30] LABS: Albumin/Globulin Ratio 0.8 (1.1-2.2); Globulin 3.6 g/dL (2.4-3.5)
[2017-07-20] MEDS: Budesonide/Formoterol 160/4.5 MDI IH SCH ×2 (07:41→19:50)
[2017-07-20] MEDS: Pantoprazole 40 MG VIAL IVP SCH ×2 (08:16→21:42)
[2017-07-20] MEDS: methylPREDNISolone 125 MG/2 ML VIAL IVP SCH ×2 (08:17→16:22)
[2017-07-20] MEDS: Aspirin 81 MG TAB.CHEW PO SCH (08:19)
[2017-07-20] MEDS: Insulin LISPRO 300 UNITS/3 ML VIAL SQ SCH ×4 (08:19→21:44)
[2017-07-20] MEDS: *HR* Promethazine 25 MG/ML VIAL IVP PRN ×3 (08:22→23:29)
[2017-07-20] MEDS: Gabapentin 300 MG CAPSULE PO SCH ×3 (08:24→21:42)
[2017-07-20] MEDS ORDERED: Lisinopril 20 MG TABLET PO SCH (09:00)
--- NOTE | 2017-07-20 09:55 | Psychiatry Progress Note ---
Date of Encounter: 07/20/17 Time of Encounter: 09:00 Subjective Interval history: Patient seen today for follow-up. She remains on the medical floor secondary to possible pneumonia IV antibiotic therapy. She does report depression symptoms although she continues to deny that she attempted to hurt herself. 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 Patient remains guarded when discussing her mental health issues but is willing to try an antidepressant. She does not want to go down to psychiatric floor but she understands that it may be necessary to ensure her safety. Review of Systems Psychiatric: Reports: depression, anxiety, abnormal sleep pattern, difficulty concentrating. Denies: suicidal ideation Objective: Exam Patient orientation: Yes Person, Yes Time, Yes Place Level of alertness: Alert Patient appearance: Unkempt Behavior: guarded Psychomotor activity: Normal Eye contact: Minimal Contact Mood description: Depressed Affect description: congruent with mood, dysphoric Speech pattern: Normal rate, Normal rhythm, Normal tone Speech volume: Normal Thought process: Intact Thought content: No Suicidal ideation, No Homicidal ideation Perceptual disturbances: No Auditory hallucinations, No Visual hallucinations Judgment: Limited Insight: Minimal Results - Vital Signs Vital Signs: Temp Pulse Resp BP Pulse Ox 97.5 F L 96 18 129/86 95 07/20/17 07:30 07/20/17 07:30 07/20/17 07:41 07/20/17 07:30 07/20/17 07:41 - Labs Labs: Laboratory Results - last 24 hr 07/19/17 07/19/17 07/19/17 11:48 16:20 19:57 WBC RBC Hgb Hct MCV MCH MCHC RDW Plt Count MPV Immature Gran % Seg Neutrophils % Lymphocytes % Monocytes % Eosinophils % Basophils % Neutrophils # Lymphocytes # Monocytes # Eosinophils # Basophils # Reactive Lymphocytes Platelet Estimate PT INR APTT Sodium Potassium Chloride Carbon Dioxide BUN Creatinine Est GFR ( Amer) Est GFR (Non-Af Amer) BUN/Creatinine Ratio Glucose POC Glucose 124 H 127 H 135 H Calculated Osmolality Calcium Magnesium Total Bilirubin AST ALT Alkaline Phosphatase Serum Total Protein Albumin Globulin Albumin/Globulin Ratio Triglycerides Cholesterol LDL Cholesterol, Calc VLDL Cholesterol, Calc HDL Cholesterol Cholesterol/HDL Ratio 07/20/17 07/20/17 07/20/17 05:08 05:08 05:08 WBC 24.2 H D RBC 4.52 Hgb 12.1 Hct 39.1 MCV 86.5 MCH 26.8 L MCHC 30.9 L RDW 15.4 H Plt Count 242 MPV 10.9 Immature Gran % 0.6 Seg Neutrophils % 92.5 Lymphocytes % 5.0 Monocytes % 1.8 Eosinophils % 0.0 Basophils % 0.1 Neutrophils # 22.4 H Lymphocytes # 1.2 Monocytes # 0.4 Eosinophils # 0.0 Basophils # 0.0 Reactive Lymphocytes Present A Platelet Estimate Normal PT 11.2 INR 1.0 APTT 32.7 Sodium 141 Potassium 3.5 Chloride 106 Carbon Dioxide 24 BUN 10 Creatinine 0.65 Est GFR ( Amer) > 60 Est GFR (Non-Af Amer) > 60 BUN/Creatinine Ratio 15 Glucose 147 H POC Glucose Calculated Osmolality 294 Calcium 9.4 Magnesium 1.5 L Total Bilirubin 0.3 AST 7 ALT < 6 Alkaline Phosphatase 54 Serum Total Protein 6.6 Albumin 3.0 L Globulin 3.6 H Albumin/Globulin Ratio 0.8 L Triglycerides 140 Cholesterol 206 H LDL Cholesterol, Calc 122 H VLDL Cholesterol, Calc 28 HDL Cholesterol 56 Cholesterol/HDL Ratio 3.7 Assessment and Plan (1) Major depressive disorder, recurrent severe without psychotic features Current visit: Yes Status: Acute Plan: Continue hospitalization, Close observation, Suicide Precautions per unit protocol, Encourage participation in unit milieu, Group Therapy, Monitor sleep, Monitor appetite Additional Plan: Consider starting Celexa 10 mg by mouth daily for depression symptoms. Continue one-to-one observation at this time. We will continue to follow. Risks, benefits, side effects, alternatives discussed w/pt: Yes Patient agreeable to treatment: Yes (2) Anxiety Current visit: Yes Status: Chronic (3) Substance abuse Current visit: Yes Status: Acute Consult Discharge Plan - Plan Referrals: NONE,PCP [Primary Care Provider] - Prescriptions: ALPRAZolam [Xanax 1 MG Tablet] 1 mg PO BID PRN #1 tablet PRN Reason: Anxiety Butalbit/Acetamin/Caff/Codeine [Fioricet-Cod 83-252-86-30 Cap] 1 each PO ONCE # 1 capsule Ondansetron [Zofran] 4 mg IV ONCE #1 vial
[2017-07-20 10:11] LABS: Hemoglobin A1C 5.5 %
[2017-07-20] MEDS: *HR* Morphine 2 MG/ML SYRINGE IVP PRN ×3 (13:42→22:09)
--- NOTE | 2017-07-20 13:45 | Internal Med Progress Note ---
Date of Encounter: 07/20/17 Time of Encounter: 10:00 - Assessment and plan (1) Hypoxia Current Visit: Yes Status: Acute Assessment and plan: Probably due to COPD exacerbation or CAP. Continue oxygen supportive treatment (2) COPD with acute exacerbation Current Visit: Yes Status: Acute Assessment and plan: Patient has wheezing and respiratory distress. Continue antibiotic, steroid, and bronchodilator. (3) Overdose Current Visit: Yes Status: Acute Assessment and plan: Patient has history of drug abuse. Urine screen shows positive to barbiturates , benzo, and marijuana. Patient presented with altered mental status and response to Narcan in the emergency room. We will continue closely monitor patient. Social work consult. Qualifiers: Encounter type: initial encounter Injury intent: accidental or unintentional Qualified Code(s): T50.901A - Poisoning by unspecified drugs, medicaments and biological substances, accidental (unintentional), initial encounter (4) Major depressive disorder, recurrent severe without psychotic features Current Visit: Yes Status: Acute Assessment and plan: Psychiatry consult appreciated. Celexa 10 mg daily started per recommendation. (5) Anxiety Current Visit: Yes Status: Chronic Assessment and plan: Continue home medication Xanax. (6) Substance abuse Current Visit: Yes Status: Acute Assessment and plan: industrial workers consult. (7) DVT prophylaxis Current Visit: Yes Status: Acute Assessment and plan: Heparin subcutaneously (8) Diabetes Current Visit: Yes Status: Chronic Assessment and plan: Continue sliding scale coverage Qualifiers: Diabetes mellitus type: type 2 Diabetes mellitus complication status: with unspecified complications Diabetes mellitus intermediate teacher insulin use: without intermediate teacher use Qualified Code(s): E11.8 - Type 2 diabetes mellitus with unspecified complications (9) HTN (hypertension) Current Visit: Yes Status: Chronic Assessment and plan: Continue home medications Qualifiers: Hypertension type: essential hypertension Qualified Code(s): I10 - Essential (primary) hypertension (10) Migraine Current Visit: Yes Status: Chronic Assessment and plan: Continue home medication Fioricet PRN Qualifiers: Migraine type: unspecified Status migrainosus presence: without status migrainosus Intractability: not intractable Qualified Code(s): G43.909 - Migraine, unspecified, not intractable, without status migrainosus (11) CAP (community acquired pneumonia) Current Visit: Yes Status: Acute Assessment and plan: Patient has clinical symptoms of cough and shortness of breath. Chest x-ray negative. Will continue antibiotics as patient has risk of aspiration/community -acquired pneumonia. Qualifiers: Laterality: unspecified laterality Qualified Code(s): J18.9 - Pneumonia, unspecified organism - Time Spent With Patient 25 - 35 minutes - Subjective Interval history: Patient is a 50-year-old female admitted for possible drug overdose, COPD exacerbation. Her past medical history is significant for COPD, diabetes, hypertension, migraine, anxiety. Patient was seen and examined. Patient is weak. Complaining of back pain. Still in shortness of breath with cough. Vitals are stable but need oxygen to maintain oxygen saturation. Patient has wheezing bilaterally. - Constitutional Vitals: Temp Pulse Resp BP Pulse Ox 98.1 F 92 18 123/75 86 07/20/17 11:45 07/20/17 11:45 07/20/17 11:45 07/20/17 11:45 07/20/17 11:45 General appearance: Present: cooperative, disheveled, mild distress, A&O X 3, underweight, answers questions appropriately - Head Head exam: Present: atraumatic, normocephalic - Eye Eye exam: Present: PERRL, conjuntiva pink, sclera anicteric Pupils: Present: PERRL - Neck Neck exam general surgery: Present: supple, trachea midline. Absent: lymphadenopathy - Respiratory Respiratory exam: Present: CTAB, respiratory distress, wheezes (Diffuse wheezes bilaterally). Absent: accessory muscle use, rales, rhonchi - Cardiovascular Cardiovascular exam: Present: RRR, +S1, +S2. Absent: diastolic murmur, gallop, rubs, systolic murmur - GI/Abdominal GI/Abdominal exam: Present: normal bowel sounds, soft, no peritoneal signs. Absent: distended, tenderness - Extremities Exam Extremities exam: Present: warm, radial pulses palpable and symmetrical. Absent : calf tenderness, cyanotic, pedal edema - Neurological Exam Neurological exam: Present: CN II-XII intact, oriented X3, no focal deficits. Absent: pronater drift, facial droop, speech deficit - Skin Skin exam: Present: dry, intact Internal Medicine: Result - Labs CBC & Chem 7: 07/20/17 05:08 07/20/17 05:08 Labs: Short CBC 07/20/17 Range/Units 05:08 WBC 24.2 H D (4.3-11.1) K/mcL Hgb 12.1 (11.5-15.4) g/dL Hct 39.1 (35.3-44.9) % Plt Count 242 (140-400) K/mcL Neutrophils # 22.4 H (1.6-8.9) K/mcL BMP 07/20/17 05:08 Sodium 141 Potassium 3.5 Chloride 106 Carbon Dioxide 24 BUN 10 Creatinine 0.65 Glucose 147 H Calcium 9.4 Liver Function 07/20/17 Range/Units 05:08 Total Bilirubin 0.3 (0.2-1.2) mg/dL AST 7 (5-34) Units/L ALT < 6 (0-55) Units/L Alkaline Phosphatase 54 (38-126) Units/L Albumin 3.0 L (3.5-5.0) g/dL - ABG Interpretation ABG results: ABG ABG pH 7.37 pH Units (7.32-7.45) 07/18/17 21:30 ABG pCO2 44 mmHg (35-45) 07/18/17 21:30 ABG pO2 77 mmHg (85-104) L 07/18/17 21:30 ABG O2 Saturation 95 % (95-98) 07/18/17 21:30 PT/INR, D-dimer PT 11.2 Seconds (9.4-12.1) 07/20/17 05:08 Consult Discharge Plan - Plan Referrals: NONE,PCP [Primary Care Provider] - Prescriptions: ALPRAZolam [Xanax 1 MG Tablet] 1 mg PO BID PRN #1 tablet PRN Reason: Anxiety Butalbit/Acetamin/Caff/Codeine [Fioricet-Cod 46-322-82-30 Cap] 1 each PO ONCE # 1 capsule Ondansetron [Zofran] 4 mg IV ONCE #1 vial
[2017-07-20] MEDS: Azithromycin 500 MG in D5% in Water 250 ML IVPB SCH (16:24)
[2017-07-21] MEDS: methylPREDNISolone 125 MG/2 ML VIAL IVP SCH ×3 (02:07→17:03)
[2017-07-21] MEDS: *HR* Heparin 5,000 UNIT/ML VIAL SQ SCH ×2 (02:08→14:30)
[2017-07-21] MEDS: Acetaminophen/Butalbital/CaffeineTABLET PO PRN ×5 (02:08→20:42)
[2017-07-21] MEDS: *HR* Morphine 2 MG/ML SYRINGE IVP PRN ×2 (02:08→06:12)
[2017-07-21] MEDS: Ipratropium/Albuterol Neb 3 ML IH SCH ×6 (03:59→23:25)
[2017-07-21] MEDS: ALPRAZolam 1 MG TABLET PO PRN ×2 (06:14→20:59)
[2017-07-21 06:30] LABS: Basophils % 0.1 %; Hematocrit 38.7 % (35.3-44.9); Hemoglobin 11.8 g/dL (11.5-15.4); Immature Granulocytes % 1.3 % (0-4); Lymphocytes # 1.1 K/mcL (0.6-4.6); Mean Corpuscular HGB Conc 30.5 g/dL (31.6-35.5); Mean Corpuscular Hemoglobin 26.5 pg (28.0-33.3); Mean Platelet Volume 10.8 fL (9.4-12.4); Monocytes # 0.3 K/mcL (0.0-1.3); Monocytes % 1.3 %; Neutrophils # 20.1 K/mcL (1.6-8.9); Platelet Count 261 K/mcL (140-400); Red Blood Count 4.45 M/mcL (3.82-4.97); Red Cell Distribution Width 15.7 % (11.5-14.5); Segmented Neutrophils % 92.3 %
[2017-07-21 06:43] LABS: Albumin 2.4 g/dL (3.5-5.0); Albumin/Globulin Ratio 0.6 (1.1-2.2); Alkaline Phosphatase 51 Units/L (38-126); Aspartate Amino Transferase 7 Units/L (5-34); BUN/Creatinine Ratio 17 (6-26); Bilirubin,Total 0.2 mg/dL (0.2-1.2); Blood Urea Nitrogen 11 mg/dL (7-20); Carbon Dioxide 26 mEq/L (19-29); Chloride 106 mEq/L (98-109); Globulin 3.8 g/dL (2.4-3.5); Glucose 147 mg/dL (70-99); Osmolality,Calculated 292 (280-300); Potassium 3.7 mEq/L (3.5-4.5); Sodium 140 mEq/L (136-145); Total Protein 6.2 g/dL (6.0-8.3); eGFR For African Americans > 60 (> 60); eGFR For Non-African Americans > 60 (> 60)
[2017-07-21 06:44] LABS: Alanine Aminotransferase < 6 Units/L (0-55)
[2017-07-21] MEDS: Budesonide/Formoterol 160/4.5 MDI IH SCH ×2 (07:50→19:51)
[2017-07-21] MEDS: Aspirin 81 MG TAB.CHEW PO SCH (09:11)
[2017-07-21] MEDS: Pantoprazole 40 MG VIAL IVP SCH ×2 (09:11→20:36)
[2017-07-21] MEDS: Gabapentin 300 MG CAPSULE PO SCH ×3 (09:12→20:36)
[2017-07-21] MEDS: traMADol 50 MG TABLET PO PRN (09:14)
[2017-07-21] MEDS: Insulin LISPRO 300 UNITS/3 ML VIAL SQ SCH ×4 (11:18→20:43)
[2017-07-21] MEDS: Ibuprofen 600 MG TABLET PO PRN (11:51)
[2017-07-21] MEDS ORDERED: ALPRAZolam 1 MG TABLET PO ONE (14:18)
[2017-07-21] MEDS: *HR* OxyCODONE Immed Rel 15 MG TABLET PO PRN ×2 (14:30→20:36)
--- NOTE | 2017-07-21 16:03 | Internal Med Progress Note ---
Date of Encounter: 07/21/17 Time of Encounter: 09:00 - Assessment and plan (1) COPD with acute exacerbation Current Visit: Yes Status: Acute Assessment and plan: Patient has wheezing and respiratory distress. Continue antibiotic, steroid, and bronchodilator. (2) Hypoxia Current Visit: Yes Status: Acute Assessment and plan: Probably due to COPD exacerbation or CAP. Continue oxygen supportive treatment (3) Overdose Current Visit: Yes Status: Acute Assessment and plan: Patient has history of drug abuse. Urine screen shows positive to barbiturates , benzo, and marijuana. Patient presented with altered mental status and response to Narcan in the emergency room. We will continue closely monitor patient. Social work consult. Qualifiers: Encounter type: initial encounter Injury intent: accidental or unintentional Qualified Code(s): T50.901A - Poisoning by unspecified drugs, medicaments and biological substances, accidental (unintentional), initial encounter (4) Major depressive disorder, recurrent severe without psychotic features Current Visit: Yes Status: Acute Assessment and plan: Psychiatry consult appreciated. Celexa 10 mg daily started per recommendation. (5) Anxiety Current Visit: Yes Status: Chronic Assessment and plan: Continue home medication Xanax. (6) Substance abuse Current Visit: Yes Status: Acute Assessment and plan: family services worker consult. 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 CT head shows questionable low density in the left thalamus, will order MRI in AM. Qualifiers: Migraine type: unspecified Status migrainosus presence: without status migrainosus Intractability: not intractable Qualified Code(s): G43.909 - Migraine, unspecified, not intractable, without status migrainosus (11) CAP (community acquired pneumonia) Current Visit: Yes Status: Acute Assessment and plan: Patient has clinical symptoms of cough and shortness of breath. Chest x-ray negative. Will continue antibiotics as patient has risk of aspiration/community -acquired pneumonia. Qualifiers: Laterality: unspecified laterality Qualified Code(s): J18.9 - Pneumonia, unspecified organism - Subjective Interval history: Patient is a 50-year-old female admitted for possible drug overdose, COPD exacerbation. Her past medical history is significant for COPD, diabetes, hypertension, migraine, anxiety. Patient was seen and examined. Patient is weak. Complaining of back pain. Still in shortness of breath with cough and wheezing. Vitals are stable but need oxygen to maintain oxygen saturation. Will cont abx, steroid and bronchodilator. - Constitutional Vitals: Temp Pulse Resp BP Pulse Ox 97.7 F 79 15 142/87 97 07/21/17 11:46 07/21/17 11:46 07/21/17 15:58 07/21/17 11:46 07/21/17 15:58 General appearance: Present: cooperative, A&O X 3, no acute distress, underweight, answers questions appropriately - Head Head exam: Present: atraumatic, normocephalic - Eye Eye exam: Present: PERRL, conjuntiva pink, sclera anicteric Pupils: Present: PERRL - Neck Neck exam general surgery: Present: supple, trachea midline. Absent: lymphadenopathy - Respiratory Respiratory exam: Present: CTAB, wheezes (Scattered wheezes b/l). Absent: accessory muscle use, rales, rhonchi - Cardiovascular Cardiovascular exam: Present: RRR, +S1, +S2. Absent: diastolic murmur, gallop, rubs, systolic murmur - GI/Abdominal GI/Abdominal exam: Present: normal bowel sounds, soft, no peritoneal signs. Absent: distended, tenderness - Extremities Exam Extremities exam: Present: warm, radial pulses palpable and symmetrical. Absent : calf tenderness, cyanotic, pedal edema - Neurological Exam Neurological exam: Present: CN II-XII intact, oriented X3, no focal deficits. Absent: pronater drift, facial droop, speech deficit - Skin Skin exam: Present: dry, intact Internal Medicine: Result - Labs CBC & Chem 7: 07/21/17 05:48 07/21/17 05:48 Labs: Short CBC 07/21/17 Range/Units 05:48 WBC 21.8 H (4.3-11.1) K/mcL Hgb 11.8 (11.5-15.4) g/dL Hct 38.7 (35.3-44.9) % Plt Count 261 (140-400) K/mcL Neutrophils # 20.1 H (1.6-8.9) K/mcL BMP 07/21/17 05:48 Sodium 140 Potassium 3.7 Chloride 106 Carbon Dioxide 26 BUN 11 Creatinine 0.63 Glucose 147 H Calcium 9.0 Liver Function 07/21/17 Range/Units 05:48 Total Bilirubin 0.2 (0.2-1.2) mg/dL AST 7 (5-34) Units/L ALT < 6 (0-55) Units/L Alkaline Phosphatase 51 (38-126) Units/L Albumin 2.4 L (3.5-5.0) g/dL - ABG Interpretation ABG results: ABG ABG pH 7.37 pH Units (7.32-7.45) 07/18/17 21:30 ABG pCO2 44 mmHg (35-45) 07/18/17 21:30 ABG pO2 77 mmHg (85-104) L 07/18/17 21:30 ABG O2 Saturation 95 % (95-98) 07/18/17 21:30 PT/INR, D-dimer PT 11.2 Seconds (9.4-12.1) 07/20/17 05:08 Consult Discharge Plan - Plan Referrals: NONE,PCP [Primary Care Provider] - Prescriptions: ALPRAZolam [Xanax 1 MG Tablet] 1 mg PO BID PRN #1 tablet PRN Reason: Anxiety Butalbit/Acetamin/Caff/Codeine [Fioricet-Cod 53-875-71-30 Cap] 1 each PO ONCE # 1 capsule Ondansetron [Zofran] 4 mg IV ONCE #1 vial
[2017-07-21] MEDS: Azithromycin 500 MG in D5% in Water 250 ML IVPB SCH (17:09)
[2017-07-22] MEDS: methylPREDNISolone 125 MG/2 ML VIAL IVP SCH ×2 (01:01→07:23)
[2017-07-22] MEDS: *HR* Heparin 5,000 UNIT/ML VIAL SQ SCH ×2 (01:01→14:29)
[2017-07-22] MEDS: Acetaminophen/Butalbital/CaffeineTABLET PO PRN ×5 (01:05→21:20)
[2017-07-22] MEDS: *HR* Promethazine 25 MG/ML VIAL IVP PRN ×2 (01:05→14:30)
[2017-07-22] MEDS: *HR* OxyCODONE Immed Rel 15 MG TABLET PO PRN ×5 (03:43→23:25)
[2017-07-22] MEDS: Ipratropium/Albuterol Neb 3 ML IH SCH ×5 (03:45→20:02)
[2017-07-22 06:05] LABS: Basophils % 0.1 %; Hematocrit 38.6 % (35.3-44.9); Hemoglobin 11.8 g/dL (11.5-15.4); Immature Granulocytes % 0.6 % (0-4); Lymphocytes # 0.9 K/mcL (0.6-4.6); Lymphocytes % 5.1 %; Mean Corpuscular HGB Conc 30.6 g/dL (31.6-35.5); Mean Corpuscular Hemoglobin 26.4 pg (28.0-33.3); Mean Corpuscular Volume 86.4 fL (83.0-100.0); Mean Platelet Volume 10.4 fL (9.4-12.4); Monocytes # 0.4 K/mcL (0.0-1.3); Monocytes % 2.1 %; Neutrophils # 16.7 K/mcL (1.6-8.9); Platelet Count 275 K/mcL (140-400); Red Blood Count 4.47 M/mcL (3.82-4.97); Red Cell Distribution Width 15.4 % (11.5-14.5); Segmented Neutrophils % 92.1 %
[2017-07-22 06:19] LABS: BUN/Creatinine Ratio 24 (6-26); Blood Urea Nitrogen 15 mg/dL (7-20); Calcium 9.1 mg/dL (8.6-10.8); Carbon Dioxide 30 mEq/L (19-29); Chloride 105 mEq/L (98-109); Glucose 123 mg/dL (70-99); Osmolality,Calculated 292 (280-300); Potassium 4.2 mEq/L (3.5-4.5); Sodium 140 mEq/L (136-145); eGFR For African Americans > 60 (> 60); eGFR For Non-African Americans > 60 (> 60)
[2017-07-22] MEDS: Pantoprazole 40 MG VIAL IVP SCH (07:23)
[2017-07-22] MEDS: ALPRAZolam 1 MG TABLET PO PRN ×2 (07:23→21:21)
[2017-07-22] MEDS: Gabapentin 300 MG CAPSULE PO SCH ×3 (07:23→21:20)
[2017-07-22] MEDS: Aspirin 81 MG TAB.CHEW PO SCH (07:24)
[2017-07-22] MEDS: Insulin LISPRO 300 UNITS/3 ML VIAL SQ SCH ×4 (07:37→21:19)
[2017-07-22] MEDS: Budesonide/Formoterol 160/4.5 MDI IH SCH ×2 (07:57→20:02)
[2017-07-22] MEDS: Nicotine 14 MG PATCH.TD24 TD SCH (10:20)
[2017-07-22] MEDS: Magnesium Sulfate 2 GM in D5% in Water 100 ML IVPB SCH ×2 (11:26→12:47)
--- NOTE | 2017-07-22 12:58 | Consult Note ---
Date of Encounter: 07/22/17 Time of Encounter: 12:00 Assessment & Recommendation (1) Major depressive disorder, recurrent Current visit: Yes Status: Acute Assessment & Recommendation: patient at present not suicidal , will need to dc 1:1 continue celexa 10 mg can go upto 20 mg in one week. need follow up appointment with psychiatrist and counsellor. patient at present not in imenent danger to self/others thank you for consult pt discharged from psych. service. Qualifiers: Active/Remission status: currently active Major depression episode severity : mild Qualified Code(s): F33.0 - Major depressive disorder, recurrent, mild (2) Anxiety Current visit: Yes Status: Acute Assessment & Recommendation: continue celexa. History of Present Illness Requesting Physician: Vivian Sweet MD Reason for consult: follow up History of present illness: Ms. Crawford is a 52 year old female , consulted today for discharge planning. patient has multiple losses in last year and has multiple medical problems , she has good support from her children and sister. she at present denies any suicidal ideation , states she never wanted to kill herself, she she learned valuable lesson on her medications , sttaes she has 14 grand children and do not want to and wants to go to [facility]. she agreed she is grieving her losses and gets depressed , she has anxiety and is given medication for that, she at present denies si/hi. she was started on celexa by Dr Gonzalez and she agreed to follow up with psychiatrist and counsellor. she was also educated to change her xanax to klonopin and take prn only. patient acknowledged. this provider called her son Sumeet at [phone] and got collateral and family aware of her discharge. CC: Vivian Sweet MD Past Med Surg Social Fam HX - Past Medical History Medical history: non-contributory, COPD, diabetes, hyperlipidemia, hypertension , migraine, other (psoriasis) - Social History Smoking Status: Current every day smoker Smokeless Tobacco Status: No Alcohol use: none Drug use: prescription drug abuse - Family History Father History Unknown: Yes Race: Family Member Ethnicity: Non- Living Status: Mother Race: Family Member Ethnicity: Non- Living Status: Age at : 56 Cause of : Stroke Hx Family Cardiac Disorders: Yes ([place], Stroke) Hx Family Cancer: Yes (Breast cancer) Hx Family Endocrine Disorder: Yes (DM) Brother Race: Family Member Ethnicity: Non- Living Status: Still Living Hx Family Medical Disorders: No Sister Race: Family Member Ethnicity: Non- Living Status: Still Living Hx Family Cancer: Yes (Cervical cancer) Medications & Allergies ALPRAZolam [Xanax 1 MG Tablet] 1 mg PO BID PRN 07/19/17 [History] ALPRAZolam [Xanax 1 MG Tablet] 1 mg PO BID PRN #1 tablet 07/19/17 [Rx] Budesonide/Formoterol 160/4.5 [Symbicort 160/4.5] 2 puff IH BIDR 07/19/17 [ History] Butalb/Acetaminophen/Caffeine [Fioricet 50-300-40 mg Capsule] 1 cap PO Q4H PRN 07/19/17 [History] Butalbit/Acetamin/Caff/Codeine [Fioricet-Cod 14-321-95-30 Cap] 1 each PO ONCE # 1 capsule 07/19/17 [Rx] Gabapentin [Neurontin] 300 mg PO TID 07/19/17 [History] Ipratropium/Albuterol Neb [Duoneb] 3 ml IH Q6HR PRN 07/19/17 [History] Lisinopril [Zestril] 40 mg PO DAILY 07/19/17 [History] Losartan [Cozaar] 25 mg PO DAILY 07/19/17 [History] Metformin HCl [Glucophage] 1,000 mg PO DAILY 07/19/17 [History] Nitroglycerin [Nitrostat] 0.6 mg SL Q5M PRN 07/19/17 [History] Ondansetron [Zofran] 4 mg IV ONCE #1 vial 07/19/17 [Rx] Promethazine [Phenergan] 25 - 50 mg PO Q6HR PRN 07/19/17 [History] Ranitidine HCl [Acid Interlocking Tower Operator] 150 mg PO BID 07/19/17 [History] Tramadol HCl [Ultram] 50 mg PO Q6H PRN 07/19/17 [History] 3 Allergy/AdvReac Type Severity Reaction Status Date / Time No Known Allergies Allergy Verified 07/18/17 22:41 Review of Systems Psychiatric: Reports: depression, anxiety Mental Status Exam Patient orientation: Yes Person, Yes Time, Yes Place Level of alertness: Alert Patient appearance: Appropriate Behavior: calm, cooperative Psychomotor activity: Normal Eye contact: Maintains Eye Contact Mood description: Anxious Affect description: congruent with mood, dysphoric Speech pattern: Coherent Thought process: Intact Thought content: Yes Intact Attention span: Capable of Focused Attention Memory description: Grossly Intact Patient reliability: Reliable Historian Intelligence estimate: Average Judgment: Good Insight: Full (patient at present not in imment danger to self/others.) Results - Vital Signs Vital signs: Temp Pulse Resp BP Pulse Ox 98.1 F 86 17 147/93 96 07/22/17 11:34 07/22/17 11:34 07/22/17 11:34 07/22/17 11:34 07/22/17 11:34 - Labs Labs: Laboratory Last Values WBC 18.2 K/mcL (4.3-11.1) H 07/22/17 05:53 RBC 4.47 M/mcL (3.82-4.97) 07/22/17 05:53 Hgb 11.8 g/dL (11.5-15.4) 07/22/17 05:53 Hct 38.6 % (35.3-44.9) 07/22/17 05:53 MCV 86.4 fL (83.0-100.0) 07/22/17 05:53 MCH 26.4 pg (28.0-33.3) L 07/22/17 05:53 MCHC 30.6 g/dL (31.6-35.5) L 07/22/17 05:53 RDW 15.4 % (11.5-14.5) H 07/22/17 05:53 Plt Count 275 K/mcL (140-400) 07/22/17 05:53 MPV 10.4 fL (9.4-12.4) 07/22/17 05:53 Immature Gran % 0.6 % (0-4) 07/22/17 05:53 Seg Neutrophils % 92.1 % 07/22/17 05:53 Lymphocytes % 5.1 % 07/22/17 05:53 Monocytes % 2.1 % 07/22/17 05:53 Eosinophils % 0.0 % 07/22/17 05:53 Basophils % 0.1 % 07/22/17 05:53 Neutrophils # 16.7 K/mcL (1.6-8.9) H 07/22/17 05:53 Lymphocytes # 0.9 K/mcL (0.6-4.6) 07/22/17 05:53 Monocytes # 0.4 K/mcL (0.0-1.3) 07/22/17 05:53 Eosinophils # 0.0 K/mcL (0.0-0.6) 07/22/17 05:53 Basophils # 0.0 K/mcL (0.0-0.2) 07/22/17 05:53 Reactive Lymphocytes Present (Not Present) A 07/20/17 05:08 Platelet Estimate Normal (Normal) 07/20/17 05:08 PT 11.2 Seconds (9.4-12.1) 07/20/17 05:08 INR 1.0 07/20/17 05:08 APTT 32.7 Seconds (26.0-36.0) 07/20/17 05:08 ABG pH 7.37 pH Units (7.32-7.45) 07/18/17 21:30 ABG pCO2 44 mmHg (35-45) 07/18/17 21:30 ABG pO2 77 mmHg (85-104) L 07/18/17 21:30 ABG HCO3 25 mEq/L (21-27) 07/18/17 21:30 ABG Total CO2 26.8 mEq/L (20-26) H 07/18/17 21:30 ABG O2 Saturation 95 % (95-98) 07/18/17 21:30 ABG Base Excess -0.1 mEq/L (-2.0 to 3.0) 07/18/17 21:30 Liter Flow 2 L/MIN 07/18/17 21:30 Blood Gas Modality NC 07/18/17 21:30 Inspired O2 28 % 07/18/17 21:30 Sodium 140 mEq/L (136-145) 07/22/17 05:53 Potassium 4.2 mEq/L (3.5-4.5) 07/22/17 05:53 Chloride 105 mEq/L (98-109) 07/22/17 05:53 Carbon Dioxide 30 mEq/L (19-29) H 07/22/17 05:53 BUN 15 mg/dL (7-20) 07/22/17 05:53 Creatinine 0.62 mg/dL (0.57-1.11) 07/22/17 05:53 Est GFR ( Amer) > 60 (> 60) 07/22/17 05:53 Est GFR (Non-Af Amer) > 60 (> 60) 07/22/17 05:53 BUN/Creatinine Ratio 24 (6-26) 07/22/17 05:53 Glucose 123 mg/dL (70-99) H 07/22/17 05:53 POC Glucose 114 (58-89) H 07/21/17 20:41 Est Mean Plasma Glucose 111 mg/dl 07/20/17 05:08 Hemoglobin A1c 5.5 % (-5.6) 07/20/17 05:08 Calculated Osmolality 292 (280-300) 07/22/17 05:53 Calcium 9.1 mg/dL (8.6-10.8) 07/22/17 05:53 Magnesium 1.5 mg/dL (1.6-2.6) L 07/20/17 05:08 Total Bilirubin 0.2 mg/dL (0.2-1.2) 07/21/17 05:48 Direct Bilirubin 0.1 mg/dL (0.0-0.5) 07/18/17 22:11 Indirect Bilirubin 0.1 mg/dL (0.0-1.2) 07/18/17 22:11 AST 7 Units/L (5-34) 07/21/17 05:48 ALT < 6 Units/L (0-55) 07/21/17 05:48 Alkaline Phosphatase 51 Units/L (38-126) 07/21/17 05:48 Troponin I 0.00 ng/mL (0-0.03) 07/18/17 22:11 Serum Total Protein 6.2 g/dL (6.0-8.3) 07/21/17 05:48 Albumin 2.4 g/dL (3.5-5.0) L 07/21/17 05:48 Globulin 3.8 g/dL (2.4-3.5) H 07/21/17 05:48 Albumin/Globulin Ratio 0.6 (1.1-2.2) L 07/21/17 05:48 Triglycerides 140 mg/dL (< 150) 07/20/17 05:08 Cholesterol 206 mg/dL (< 200) H 07/20/17 05:08 LDL Cholesterol, Calc 122 mg/dL (0-99) H 07/20/17 05:08 VLDL Cholesterol, Calc 28 mg/dL (< 31) 07/20/17 05:08 HDL Cholesterol 56 mg/dL (40-59) 07/20/17 05:08 Cholesterol/HDL Ratio 3.7 (0-4.9) 07/20/17 05:08 Urine Color Yellow (Yellow) 07/18/17 22:01 Urine Clarity Clear (Clear) 07/18/17 22:01 Urine pH 6.0 pH Units (5.0-8.0) 07/18/17 22:01 Ur Specific Floral 1.016 (1.010-1.025) 07/18/17 22:01 Urine Protein 100 mg/dL (Neg-Trace) H 07/18/17 22:01 Urine Glucose (UA) Normal mg/dL (Normal) 07/18/17 22:01 Urine Ketones Negative mg/dL (Negative) 07/18/17 22:01 Urine Blood Negative (Negative) 07/18/17 22:01 Urine Nitrite Negative (Negative) 07/18/17 22:01 Urine Bilirubin Negative (Negative) 07/18/17 22:01 Urine Urobilinogen Normal mg/dL (Normal) 07/18/17 22:01 Ur Leukocyte Esterase Negative (Negative) 07/18/17 22:01 Urine Microscopic RBC 5-15 per hpf (0-3) H 07/18/17 22:01 Urine Microscopic WBC 0-3 per hpf (0-3) 07/18/17 22:01 Ur Squamous Epith Cells Moderate per lpf (None-Few) H 07/18/17 22:01 Urine Bacteria None Seen per hpf (None-Few) 07/18/17 22:01 Hyaline Casts None Seen per lpf (None-Few) 07/18/17 22:01 Ur Culture Indicated? NO (NO) 07/18/17 22:01 Salicylates < 5.0 mg/dL (15-30) L 07/18/17 22:11 Urine Opiates Screen Negative ng/mL (Gnysqo=688) 07/18/17 22:01 Acetaminophen 32.0 mcg/mL (10-30) H 07/18/17 22:11 Ur Barbiturates Screen Positive ng/mL (Anqiog=307) H 07/18/17 22:01 Ur Phencyclidine Scrn Negative ng/mL (Cutoff=25) 07/18/17 22:01 Ur Amphetamines Screen Negative ng/mL (Wbkvae=7202) 07/18/17 22:01 U Benzodiazepines Scrn Positive ng/mL (Uvgqdz=134) H 07/18/17 22:01 Urine Cocaine Screen Negative ng/mL (Cutoff= 300) 07/18/17 22:01 U Marijuana (THC) Screen Positive ng/mL (Cutoff = 50) H 07/18/17 22:01 Ethyl Alcohol < 10 mg/dL (0-10) 07/18/17 22:11 - Impressions Impressions Brain MRI 07/22/17 07:40 IMPRESSION: 1. No acute intracranial process or findings evident to explain the patient's headaches. 2. Nonspecific white matter signal abnormality in both hemispheres suggesting mild chronic small vessel ischemic changes. D/ / 07/22/2017 11:22:55 Charles So MD / felix Interpreting Provider: Charles So MD Consult Discharge Plan - Plan Referrals: NONE,PCP [Primary Care Provider] - Prescriptions: ALPRAZolam [Xanax 1 MG Tablet] 1 mg PO BID PRN #1 tablet PRN Reason: Anxiety Butalbit/Acetamin/Caff/Codeine [Fioricet-Cod 91-246-99-30 Cap] 1 each PO ONCE # 1 capsule Ondansetron [Zofran] 4 mg IV ONCE #1 vial
[2017-07-22] MEDS: MethylPREDNISolone 40 MG/ML VIAL IVP SCH ×2 (16:34→23:25)
[2017-07-22] MEDS: Azithromycin 500 MG in D5% in Water 250 ML IVPB SCH (16:34)
--- NOTE | 2017-07-22 18:50 | Internal Med Progress Note ---
Date of Encounter: 07/22/17 Time of Encounter: 09:00 - Assessment and plan (1) COPD with acute exacerbation Current Visit: Yes Status: Acute Assessment and plan: Patient has wheezing and respiratory distress. Continue antibiotic, steroid, and bronchodilator. Add magnesium and Singulair (2) Hypoxia Current Visit: Yes Status: Acute Assessment and plan: Probably due to COPD exacerbation or CAP. Continue oxygen supportive treatment (3) Overdose Current Visit: Yes Status: Acute Assessment and plan: Patient has history of drug abuse. Urine screen shows positive to barbiturates , benzo, and marijuana. Patient presented with altered mental status and response to Narcan in the emergency room. We will continue closely monitor patient. Social work consult. Qualifiers: Encounter type: initial encounter Injury intent: accidental or unintentional Qualified Code(s): T50.901A - Poisoning by unspecified drugs, medicaments and biological substances, accidental (unintentional), initial encounter (4) Major depressive disorder, recurrent severe without psychotic features Current Visit: Yes Status: Acute Assessment and plan: Psychiatry consult appreciated. Celexa 10 mg daily started per recommendation. (5) Anxiety Current Visit: Yes Status: Chronic Assessment and plan: Continue home medication Xanax. (6) Substance abuse Current Visit: Yes Status: Acute Assessment and plan: tree worker consult. 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 CT head shows questionable low density in the left thalamus, MRI done, unremarkable. Qualifiers: Migraine type: unspecified Status migrainosus presence: without status migrainosus Intractability: not intractable Qualified Code(s): G43.909 - Migraine, unspecified, not intractable, without status migrainosus (11) CAP (community acquired pneumonia) Current Visit: Yes Status: Acute Assessment and plan: Patient has clinical symptoms of cough and shortness of breath. Chest x-ray negative. Will continue antibiotics as patient has risk of aspiration/community -acquired pneumonia. Qualifiers: Laterality: unspecified laterality Qualified Code(s): J18.9 - Pneumonia, unspecified organism - Time Spent With Patient 25 - 35 minutes - Subjective Interval history: Patient is a 50-year-old female admitted for possible drug overdose, COPD exacerbation. Her past medical history is significant for COPD, diabetes, hypertension, migraine, anxiety. Patient was seen and examined. Patient is more alert. Still in mild shortness of breath with cough and wheezing. Vitals are stable but need oxygen to maintain oxygen saturation. Will cont abx, steroid and bronchodilator. Add magnessium and singuliar. MRI brain unremarkable. Psych reevaluation appreciated. - Constitutional Vitals: Temp Pulse Resp BP Pulse Ox 98.3 F 79 24 148/90 94 07/22/17 15:40 07/22/17 15:40 07/22/17 15:53 07/22/17 15:40 07/22/17 15:53 General appearance: Present: cooperative, A&O X 3, no acute distress, underweight, answers questions appropriately - Head Head exam: Present: atraumatic, normocephalic - Eye Eye exam: Present: PERRL, conjuntiva pink, sclera anicteric Pupils: Present: PERRL - Neck Neck exam general surgery: Present: supple, trachea midline. Absent: lymphadenopathy - Respiratory Respiratory exam: Present: CTAB, wheezes (Diffused wheezes bilaterally). Absent : accessory muscle use, rales, rhonchi - Cardiovascular Cardiovascular exam: Present: RRR, +S1, +S2. Absent: diastolic murmur, gallop, rubs, systolic murmur - GI/Abdominal GI/Abdominal exam: Present: normal bowel sounds, soft, no peritoneal signs. Absent: distended, tenderness - Extremities Exam Extremities exam: Present: warm, radial pulses palpable and symmetrical. Absent : calf tenderness, cyanotic, pedal edema - Neurological Exam Neurological exam: Present: CN II-XII intact, oriented X3, no focal deficits. Absent: pronater drift, facial droop, speech deficit - Skin Skin exam: Present: dry, intact Internal Medicine: Result - Labs CBC & Chem 7: 07/22/17 05:53 07/22/17 05:53 Labs: Short CBC 07/22/17 Range/Units 05:53 WBC 18.2 H (4.3-11.1) K/mcL Hgb 11.8 (11.5-15.4) g/dL Hct 38.6 (35.3-44.9) % Plt Count 275 (140-400) K/mcL Neutrophils # 16.7 H (1.6-8.9) K/mcL BMP 07/22/17 05:53 Sodium 140 Potassium 4.2 Chloride 105 Carbon Dioxide 30 H BUN 15 Creatinine 0.62 Glucose 123 H Calcium 9.1 - ABG Interpretation ABG results: ABG ABG pH 7.37 pH Units (7.32-7.45) 07/18/17 21:30 ABG pCO2 44 mmHg (35-45) 07/18/17 21:30 ABG pO2 77 mmHg (85-104) L 07/18/17 21:30 ABG O2 Saturation 95 % (95-98) 07/18/17 21:30 PT/INR, D-dimer PT 11.2 Seconds (9.4-12.1) 07/20/17 05:08 - Impressions Impressions Brain MRI 07/22/17 07:40 IMPRESSION: 1. No acute intracranial process or findings evident to explain the patient's headaches. 2. Nonspecific white matter signal abnormality in both hemispheres suggesting mild chronic small vessel ischemic changes. D/ / 07/22/2017 11:22:55 Charles So MD / felix Interpreting Provider: Charles So MD Consult Discharge Plan - Plan Referrals: Opal Givens DO [Resident] - Prescriptions: ALPRAZolam [Xanax 1 MG Tablet] 1 mg PO BID PRN #1 tablet PRN Reason: Anxiety Butalbit/Acetamin/Caff/Codeine [Fioricet-Cod 01-004-13-30 Cap] 1 each PO ONCE # 1 capsule Ondansetron [Zofran] 4 mg IV ONCE #1 vial
--- NOTE | 2017-07-22 20:58 | Electrocardiograph Report ---
[place] [id number] Test Date: 2017-07-18 Pat Name: Sharlene Crawford Department: 105 Room: 2N0 Gender: F Rangeland Management Specialist: WILTON : 1965 Requested By: Kisha Lai Order Number: [id number] Reading MD: Gregory Luna MD Measurements Intervals [place] Rate: 71 P: 103 GA: 200 QRS: 120 QRSD: 87 T: 100 QT: 395 QTc: 417 Interpretive Statements SINUS RHYTHM ARM LEADS REVERSED Electronically Signed On 07-22-2017 20:56:53 EDT by Gregory Luna MD
[2017-07-22] MEDS: Famotidine 20 MG TABLET PO SCH (21:21)
[2017-07-22] MEDS: Ondansetron 4 MG/2 ML VIAL IVP PRN (21:30)
[2017-07-23] MEDS: Ipratropium/Albuterol Neb 3 ML IH SCH ×7 (00:42→23:29)
[2017-07-23] MEDS: *HR* OxyCODONE Immed Rel 15 MG TABLET PO PRN ×5 (04:17→22:16)
[2017-07-23] MEDS: *HR* Heparin 5,000 UNIT/ML VIAL SQ SCH ×2 (04:18→13:12)
[2017-07-23] MEDS: Acetaminophen/Butalbital/CaffeineTABLET PO PRN ×4 (04:27→20:14)
[2017-07-23 05:15] LABS: Basophils % 0.1 %; Hematocrit 38.9 % (35.3-44.9); Hemoglobin 12.1 g/dL (11.5-15.4); Immature Granulocytes % 0.8 % (0-4); Immature Platelets 4.7 % (1.1-6.1); Lymphocytes # 1.5 K/mcL (0.6-4.6); Mean Corpuscular HGB Conc 31.1 g/dL (31.6-35.5); Mean Corpuscular Hemoglobin 26.9 pg (28.0-33.3); Mean Corpuscular Volume 86.6 fL (83.0-100.0); Mean Platelet Volume 10.6 fL (9.4-12.4); Monocytes # 0.4 K/mcL (0.0-1.3); Monocytes % 3.1 %; Neutrophils # 11.3 K/mcL (1.6-8.9); Platelet Count 290 K/mcL (140-400); Red Blood Count 4.49 M/mcL (3.82-4.97); Red Cell Distribution Width 15.6 % (11.5-14.5)
[2017-07-23 05:26] LABS: BUN/Creatinine Ratio 28 (6-26); Blood Urea Nitrogen 19 mg/dL (7-20); Carbon Dioxide 29 mEq/L (19-29); Chloride 99 mEq/L (98-109); Glucose 121 mg/dL (70-99); Osmolality,Calculated 292 (280-300); Potassium 4.1 mEq/L (3.5-4.5); Sodium 139 mEq/L (136-145); eGFR For African Americans > 60 (> 60); eGFR For Non-African Americans > 60 (> 60)
[2017-07-23] MEDS: ALPRAZolam 1 MG TABLET PO PRN (06:04)
[2017-07-23] MEDS: Ondansetron 4 MG/2 ML VIAL IVP PRN (06:05)
[2017-07-23] MEDS: Budesonide/Formoterol 160/4.5 MDI IH SCH ×2 (07:57→21:29)
[2017-07-23] MEDS: Lactobacillus 1 EACH CAP.SPRINK PO SCH (09:03)
[2017-07-23] MEDS: Aspirin 81 MG TAB.CHEW PO SCH (09:04)
[2017-07-23] MEDS: Famotidine 20 MG TABLET PO SCH ×2 (09:04→20:15)
[2017-07-23] MEDS: MethylPREDNISolone 40 MG/ML VIAL IVP SCH ×2 (09:04→14:57)
[2017-07-23] MEDS: Gabapentin 300 MG CAPSULE PO SCH ×3 (09:04→20:15)
[2017-07-23] MEDS: Insulin LISPRO 300 UNITS/3 ML VIAL SQ SCH ×4 (09:05→22:17)
[2017-07-23] MEDS: Nicotine 14 MG PATCH.TD24 TD SCH (09:06)
[2017-07-23] MEDS ORDERED: Magnesium Sulfate 2 GM in D5% in Water 100 ML IVPB ONE (10:10)
[2017-07-23] MEDS: Acetylcysteine 10% 2 ML INHSOL IH SCH ×4 (11:39→23:29)
[2017-07-23] MEDS: *HR* Promethazine 25 MG/ML VIAL IVP PRN (14:57)
[2017-07-23] MEDS: Azithromycin 500 MG in D5% in Water 250 ML IVPB SCH (16:25)
[2017-07-23] MEDS: clonazePAM 0.5 MG TABLET PO PRN ×2 (16:25→22:15)
--- NOTE | 2017-07-23 18:58 | Internal Med Progress Note ---
Date of Encounter: 07/23/17 Time of Encounter: 09:00 - Assessment and plan (1) COPD with acute exacerbation Current Visit: Yes Status: Acute Assessment and plan: Patient has persist wheezing. Improved respiratory distress. Continue antibiotic, steroid, and bronchodilator. Add magnesium and Singulair. Add mucomyst in nebulizer. (2) Hypoxia Current Visit: Yes Status: Acute Assessment and plan: Probably due to COPD exacerbation or CAP. Continue oxygen supportive treatment (3) Overdose Current Visit: Yes Status: Acute Assessment and plan: Patient has history of drug abuse. Urine screen shows positive to barbiturates , benzo, and marijuana. Patient presented with altered mental status and response to Narcan in the emergency room. We will continue closely monitor patient. Social work consult. Qualifiers: Encounter type: initial encounter Injury intent: accidental or unintentional Qualified Code(s): T50.901A - Poisoning by unspecified drugs, medicaments and biological substances, accidental (unintentional), initial encounter (4) Major depressive disorder, recurrent severe without psychotic features Current Visit: Yes Status: Acute Assessment and plan: Psychiatry consult appreciated. Celexa 10 mg daily started per recommendation. (5) Anxiety Current Visit: Yes Status: Chronic Assessment and plan: Switch Xanax to klonopin per psych recommendation.. (6) Substance abuse Current Visit: Yes Status: Acute Assessment and plan: dye house vat worker consult. (7) DVT prophylaxis Current Visit: Yes Status: Acute Assessment and plan: Heparin subcutaneously (8) Diabetes Current Visit: Yes Status: Chronic Assessment and plan: Continue sliding scale coverage Qualifiers: Diabetes mellitus type: type 2 Diabetes mellitus complication status: with unspecified complications Diabetes mellitus jail insulin use: without termite control representative use Qualified Code(s): E11.8 - Type 2 diabetes mellitus with unspecified complications (9) HTN (hypertension) Current Visit: Yes Status: Chronic Assessment and plan: Continue home medications Qualifiers: Hypertension type: essential hypertension Qualified Code(s): I10 - Essential (primary) hypertension (10) Migraine Current Visit: Yes Status: Chronic Assessment and plan: Continue home medication Fioricet PRN. CT head shows questionable low density in the left thalamus, MRI done, unremarkable. Qualifiers: Migraine type: unspecified Status migrainosus presence: without status migrainosus Intractability: not intractable Qualified Code(s): G43.909 - Migraine, unspecified, not intractable, without status migrainosus (11) CAP (community acquired pneumonia) Current Visit: Yes Status: Acute Assessment and plan: Patient has clinical symptoms of cough and shortness of breath. Chest x-ray negative. Will continue antibiotics as patient has risk of aspiration/community -acquired pneumonia. Qualifiers: Laterality: unspecified laterality Qualified Code(s): J18.9 - Pneumonia, unspecified organism - Time Spent With Patient 25 - 35 minutes - Subjective Interval history: Patient is a 50-year-old female admitted for possible drug overdose, COPD exacerbation. Her past medical history is significant for COPD, diabetes, hypertension, migraine, anxiety. Patient was seen and examined. Patient is more alert. Still in mild shortness of breath with cough and wheezing. Wheezing improved. Vitals are stable but need oxygen to maintain oxygen saturation. Will cont abx, steroid and bronchodilator. Give another dose of magnessium, cont singuliar. Add mucomyst to nebulizer. - Constitutional Vitals: Temp Pulse Resp BP Pulse Ox 98.2 F 81 16 145/84 95 07/23/17 15:00 07/23/17 15:00 07/23/17 15:38 07/23/17 15:00 07/23/17 15:38 General appearance: Present: cooperative, A&O X 3, no acute distress, underweight, answers questions appropriately - Head Head exam: Present: atraumatic, normocephalic - Eye Eye exam: Present: PERRL, conjuntiva pink, sclera anicteric Pupils: Present: PERRL - Neck Neck exam general surgery: Present: supple, trachea midline. Absent: lymphadenopathy - Respiratory Respiratory exam: Present: CTAB, wheezes (Scattered wheezes B/L). Absent: accessory muscle use, rales, rhonchi - Cardiovascular Cardiovascular exam: Present: RRR, +S1, +S2. Absent: diastolic murmur, gallop, rubs, systolic murmur - GI/Abdominal GI/Abdominal exam: Present: normal bowel sounds, soft, no peritoneal signs. Absent: distended, tenderness - Extremities Exam Extremities exam: Present: warm, radial pulses palpable and symmetrical. Absent : calf tenderness, cyanotic, pedal edema - Neurological Exam Neurological exam: Present: CN II-XII intact, oriented X3, no focal deficits. Absent: pronater drift, facial droop, speech deficit - Skin Skin exam: Present: dry, intact Internal Medicine: Result - Labs CBC & Chem 7: 07/23/17 04:53 07/23/17 04:53 Labs: Short CBC 07/23/17 Range/Units 04:53 WBC 13.2 H (4.3-11.1) K/mcL Hgb 12.1 (11.5-15.4) g/dL Hct 38.9 (35.3-44.9) % Plt Count 290 (140-400) K/mcL Neutrophils # 11.3 H (1.6-8.9) K/mcL BMP 07/23/17 04:53 Sodium 139 Potassium 4.1 Chloride 99 Carbon Dioxide 29 BUN 19 Creatinine 0.67 Glucose 121 H Calcium 9.0 - ABG Interpretation ABG results: ABG ABG pH 7.37 pH Units (7.32-7.45) 07/18/17 21:30 ABG pCO2 44 mmHg (35-45) 07/18/17 21:30 ABG pO2 77 mmHg (85-104) L 07/18/17 21:30 ABG O2 Saturation 95 % (95-98) 07/18/17 21:30 PT/INR, D-dimer PT 11.2 Seconds (9.4-12.1) 07/20/17 05:08 Consult Discharge Plan - Plan Referrals: Opal Givens DO [Resident] - 07/31/17 10:15 am Prescriptions: ALPRAZolam [Xanax 1 MG Tablet] 1 mg PO BID PRN #1 tablet PRN Reason: Anxiety Butalbit/Acetamin/Caff/Codeine [Fioricet-Cod 09-926-19-30 Cap] 1 each PO ONCE # 1 capsule Ondansetron [Zofran] 4 mg IV ONCE #1 vial
[2017-07-24] MEDS: Acetaminophen/Butalbital/CaffeineTABLET PO PRN ×4 (00:08→20:10)
[2017-07-24] MEDS: Acetylcysteine 10% 2 ML INHSOL IH SCH ×5 (03:59→19:49)
[2017-07-24] MEDS: Ipratropium/Albuterol Neb 3 ML IH SCH ×5 (03:59→19:49)
[2017-07-24 06:25] LABS: Basophils % 0.3 %; Hematocrit 40.4 % (35.3-44.9); Hemoglobin 12.3 g/dL (11.5-15.4); Immature Granulocytes % 1.2 % (0-4); Lymphocytes # 1.6 K/mcL (0.6-4.6); Mean Corpuscular HGB Conc 30.4 g/dL (31.6-35.5); Mean Corpuscular Hemoglobin 26.7 pg (28.0-33.3); Mean Corpuscular Volume 87.6 fL (83.0-100.0); Monocytes # 0.5 K/mcL (0.0-1.3); Monocytes % 5.4 %; Neutrophils # 7.8 K/mcL (1.6-8.9); Platelet Count 299 K/mcL (140-400); Red Blood Count 4.61 M/mcL (3.82-4.97); Red Cell Distribution Width 15.5 % (11.5-14.5); Segmented Neutrophils % 77.1 %
[2017-07-24 07:10] LABS: BUN/Creatinine Ratio 26 (6-26); Blood Urea Nitrogen 16 mg/dL (7-20); Calcium 9.6 mg/dL (8.6-10.8); Carbon Dioxide 34 mEq/L (19-29); Chloride 96 mEq/L (98-109); Glucose 102 mg/dL (70-99); Osmolality,Calculated 289 (280-300); Potassium 4.8 mEq/L (3.5-4.5); Sodium 139 mEq/L (136-145); eGFR For African Americans > 60 (> 60); eGFR For Non-African Americans > 60 (> 60)
[2017-07-24] MEDS: Budesonide/Formoterol 160/4.5 MDI IH SCH ×2 (07:44→19:49)
[2017-07-24] MEDS: Famotidine 20 MG TABLET PO SCH ×2 (09:21→20:03)
[2017-07-24] MEDS: *HR* OxyCODONE Immed Rel 15 MG TABLET PO PRN ×4 (09:21→21:50)
[2017-07-24] MEDS: MethylPREDNISolone 40 MG/ML VIAL IVP SCH ×3 (09:21→09:43)
[2017-07-24] MEDS: Lactobacillus 1 EACH CAP.SPRINK PO SCH (09:21)
[2017-07-24] MEDS: clonazePAM 0.5 MG TABLET PO PRN ×2 (09:22→17:37)
[2017-07-24] MEDS: Aspirin 81 MG TAB.CHEW PO SCH (09:22)
[2017-07-24] MEDS: Nicotine 14 MG PATCH.TD24 TD SCH (09:26)
[2017-07-24] MEDS: Gabapentin 300 MG CAPSULE PO SCH ×3 (09:27→20:03)
[2017-07-24] MEDS: Insulin LISPRO 300 UNITS/3 ML VIAL SQ SCH ×4 (09:27→21:00)
[2017-07-24] MEDS: *HR* Heparin 5,000 UNIT/ML VIAL SQ SCH ×2 (09:44→13:02)
[2017-07-24] MEDS: predniSONE 20 MG TABLET PO SCH (13:01)
--- NOTE | 2017-07-24 20:07 | Internal Med Progress Note ---
Date of Encounter: 07/24/17 Time of Encounter: 09:00 - Assessment and plan (1) COPD with acute exacerbation Current Visit: Yes Status: Acute Assessment and plan: Patient has persist wheezing, improved now. Improved respiratory distress. Dc antibiotic, Continue steroid, and bronchodilator. Add Singulair. Add mucomyst in nebulizer. (2) Hypoxia Current Visit: Yes Status: Acute Assessment and plan: Probably due to COPD exacerbation or CAP. Continue oxygen supportive treatment (3) Overdose Current Visit: Yes Status: Acute Assessment and plan: Patient has history of drug abuse. Urine screen shows positive to barbiturates , benzo, and marijuana. Patient presented with altered mental status and response to Narcan in the emergency room. We will continue closely monitor patient. Social work consult. Detox resourse provided. Qualifiers: Encounter type: initial encounter Injury intent: accidental or unintentional Qualified Code(s): T50.901A - Poisoning by unspecified drugs, medicaments and biological substances, accidental (unintentional), initial encounter (4) Major depressive disorder, recurrent severe without psychotic features Current Visit: Yes Status: Acute Assessment and plan: Psychiatry consult appreciated. Celexa 10 mg daily started per recommendation. (5) Anxiety Current Visit: Yes Status: Chronic Assessment and plan: Switch Xanax to klonopin per psych recommendation.. (6) Substance abuse Current Visit: Yes Status: Acute Assessment and plan: turn down worker consult. (7) DVT prophylaxis Current Visit: Yes Status: Acute Assessment and plan: Heparin subcutaneously (8) Diabetes Current Visit: Yes Status: Chronic Assessment and plan: Continue sliding scale coverage Qualifiers: Diabetes mellitus type: type 2 Diabetes mellitus complication status: with unspecified complications Diabetes mellitus safety director insulin use: without prison use Qualified Code(s): E11.8 - Type 2 diabetes mellitus with unspecified complications (9) HTN (hypertension) Current Visit: Yes Status: Chronic Assessment and plan: Continue home medications Qualifiers: Hypertension type: essential hypertension Qualified Code(s): I10 - Essential (primary) hypertension (10) Migraine Current Visit: Yes Status: Chronic Assessment and plan: Continue home medication Fioricet PRN. CT head shows questionable low density in the left thalamus, MRI done, unremarkable. Qualifiers: Migraine type: unspecified Status migrainosus presence: without status migrainosus Intractability: not intractable Qualified Code(s): G43.909 - Migraine, unspecified, not intractable, without status migrainosus (11) CAP (community acquired pneumonia) Current Visit: Yes Status: Acute Assessment and plan: Patient has clinical symptoms of cough and shortness of breath. Chest x-ray negative. Finished Abx course. Qualifiers: Laterality: unspecified laterality Qualified Code(s): J18.9 - Pneumonia, unspecified organism - Subjective Interval history: Patient is a 50-year-old female admitted for possible drug overdose, COPD exacerbation. Her past medical history is significant for COPD, diabetes, hypertension, migraine, anxiety. Patient was seen and examined. Patient is more alert. Still in mild shortness of breath with cough and wheezing. Wheezing improved. Vitals are stable but need oxygen to maintain oxygen saturation. Decreased O2 requirement to 2L, which is pt's baseline. Finish 5 day abx treatment. Taperdown steroid to po. Cont bronchodilator and mucomyst to nebulizer. - Constitutional Vitals: Temp Pulse Resp BP Pulse Ox 98 F 74 16 126/90 96 07/24/17 15:34 07/24/17 15:34 07/24/17 15:34 07/24/17 15:34 07/24/17 15:34 General appearance: Present: cooperative, A&O X 3, no acute distress, underweight, answers questions appropriately - Head Head exam: Present: atraumatic, normocephalic - Eye Eye exam: Present: PERRL, conjuntiva pink, sclera anicteric Pupils: Present: PERRL - Neck Neck exam general surgery: Present: supple, trachea midline. Absent: lymphadenopathy - Respiratory Respiratory exam: Present: CTAB, wheezes (scattered wheezing B/L). Absent: accessory muscle use, rales, rhonchi - Cardiovascular Cardiovascular exam: Present: RRR, +S1, +S2. Absent: diastolic murmur, gallop, rubs, systolic murmur - GI/Abdominal GI/Abdominal exam: Present: normal bowel sounds, soft, no peritoneal signs. Absent: distended, tenderness - Extremities Exam Extremities exam: Present: warm, radial pulses palpable and symmetrical. Absent : calf tenderness, cyanotic, pedal edema - Neurological Exam Neurological exam: Present: CN II-XII intact, oriented X3, no focal deficits. Absent: pronater drift, facial droop, speech deficit - Skin Skin exam: Present: dry, intact Internal Medicine: Result - Labs CBC & Chem 7: 07/24/17 05:00 07/24/17 05:00 Labs: Short CBC 07/24/17 Range/Units 05:00 WBC 10.1 (4.3-11.1) K/mcL Hgb 12.3 (11.5-15.4) g/dL Hct 40.4 (35.3-44.9) % Plt Count 299 (140-400) K/mcL Neutrophils # 7.8 (1.6-8.9) K/mcL BMP 07/24/17 05:00 Sodium 139 Potassium 4.8 H Chloride 96 L Carbon Dioxide 34 H BUN 16 Creatinine 0.61 Glucose 102 H Calcium 9.6 - ABG Interpretation ABG results: ABG ABG pH 7.37 pH Units (7.32-7.45) 07/18/17 21:30 ABG pCO2 44 mmHg (35-45) 07/18/17 21:30 ABG pO2 77 mmHg (85-104) L 07/18/17 21:30 ABG O2 Saturation 95 % (95-98) 07/18/17 21:30 PT/INR, D-dimer PT 11.2 Seconds (9.4-12.1) 07/20/17 05:08 Consult Discharge Plan - Plan Referrals: Opal Givens DO [Resident] - 07/31/17 10:15 am Prescriptions: ALPRAZolam [Xanax 1 MG Tablet] 1 mg PO BID PRN #1 tablet PRN Reason: Anxiety Butalbit/Acetamin/Caff/Codeine [Fioricet-Cod 32-746-85-30 Cap] 1 each PO ONCE # 1 capsule Ondansetron [Zofran] 4 mg IV ONCE #1 vial
[2017-07-24] MEDS: Ondansetron 4 MG/2 ML VIAL IVP PRN (20:12)
[2017-07-25] MEDS: Acetaminophen/Butalbital/CaffeineTABLET PO PRN ×4 (00:34→13:34)
[2017-07-25] MEDS: Ipratropium/Albuterol Neb 3 ML IH SCH ×5 (00:48→15:37)
[2017-07-25] MEDS: Acetylcysteine 10% 2 ML INHSOL IH SCH ×5 (00:48→15:37)
[2017-07-25] MEDS: clonazePAM 0.5 MG TABLET PO PRN ×2 (02:29→08:34)
[2017-07-25] MEDS: *HR* Heparin 5,000 UNIT/ML VIAL SQ SCH ×2 (02:29→13:36)
[2017-07-25] MEDS: *HR* OxyCODONE Immed Rel 15 MG TABLET PO PRN ×4 (02:30→14:53)
[2017-07-25 05:17] LABS: Basophils % 0.2 %; Eosinophils % 0.2 %; Hematocrit 40.6 % (35.3-44.9); Hemoglobin 12.5 g/dL (11.5-15.4); Immature Granulocytes % 1.3 % (0-4); Lymphocytes # 3.6 K/mcL (0.6-4.6); Lymphocytes % 22.7 %; Mean Corpuscular HGB Conc 30.8 g/dL (31.6-35.5); Mean Corpuscular Hemoglobin 26.8 pg (28.0-33.3); Mean Corpuscular Volume 86.9 fL (83.0-100.0); Mean Platelet Volume 10.5 fL (9.4-12.4); Monocytes % 6.2 %; Neutrophils # 11.1 K/mcL (1.6-8.9); Platelet Count 335 K/mcL (140-400); Red Blood Count 4.67 M/mcL (3.82-4.97); Red Cell Distribution Width 15.3 % (11.5-14.5); Segmented Neutrophils % 69.4 %
[2017-07-25 05:32] LABS: BUN/Creatinine Ratio 40 (6-26); Blood Urea Nitrogen 25 mg/dL (7-20); Calcium 9.7 mg/dL (8.6-10.8); Carbon Dioxide 35 mEq/L (19-29); Chloride 95 mEq/L (98-109); Glucose 90 mg/dL (70-99); Osmolality,Calculated 290 (280-300); Sodium 138 mEq/L (136-145); eGFR For African Americans > 60 (> 60); eGFR For Non-African Americans > 60 (> 60)
[2017-07-25 07:26] VITALS: BP 148/94
[2017-07-25] MEDS: Budesonide/Formoterol 160/4.5 MDI IH SCH (08:14)
[2017-07-25] MEDS: Insulin LISPRO 300 UNITS/3 ML VIAL SQ SCH ×2 (08:27→11:58)
[2017-07-25] MEDS: Aspirin 81 MG TAB.CHEW PO SCH (08:28)
[2017-07-25] MEDS: Gabapentin 300 MG CAPSULE PO SCH ×2 (08:29→13:35)
[2017-07-25] MEDS: Lactobacillus 1 EACH CAP.SPRINK PO SCH (08:29)
[2017-07-25] MEDS: Nicotine 14 MG PATCH.TD24 TD SCH (08:29)
[2017-07-25] MEDS: Famotidine 20 MG TABLET PO SCH (08:29)
[2017-07-25] MEDS: predniSONE 20 MG TABLET PO SCH (08:29)
[2017-07-25] MEDS: *HR* Promethazine 25 MG/ML VIAL IVP PRN (13:40)
--- NOTE | 2017-07-25 13:53 | Discharge Summary ---
Date of Encounter: 07/25/17 Time of Encounter: 10:00 - Discharge Diagnosis (1) COPD with acute exacerbation Priority: Primary Status: Acute (2) Hypoxia Priority: Primary Status: Acute (3) Overdose Priority: Primary Status: Acute Qualifiers: Encounter type: initial encounter Injury intent: accidental or unintentional Qualified Code(s): T50.901A - Poisoning by unspecified drugs, medicaments and biological substances, accidental (unintentional), initial encounter (4) Major depressive disorder, recurrent severe without psychotic features Priority: Primary Status: Acute (5) Anxiety Priority: Primary Status: Chronic (6) Substance abuse Priority: Primary Status: Acute (7) DVT prophylaxis Priority: Secondary Status: Acute (8) Diabetes Priority: Secondary Status: Chronic Qualifiers: Diabetes mellitus type: type 2 Diabetes mellitus complication status: with unspecified complications Diabetes mellitus long term care phlebotomist insulin use: without detention use Qualified Code(s): E11.8 - Type 2 diabetes mellitus with unspecified complications (9) HTN (hypertension) Priority: Secondary Status: Chronic Qualifiers: Hypertension type: essential hypertension Qualified Code(s): I10 - Essential (primary) hypertension (10) Migraine Priority: Secondary Status: Chronic Qualifiers: Migraine type: unspecified Status migrainosus presence: without status migrainosus Intractability: not intractable Qualified Code(s): G43.909 - Migraine, unspecified, not intractable, without status migrainosus (11) CAP (community acquired pneumonia) Priority: Primary Status: Acute Qualifiers: Laterality: unspecified laterality Qualified Code(s): J18.9 - Pneumonia, unspecified organism - Discharge Medications Prescriptions: Acetylcysteine 10% 2 ml IH [id number] #60 inhsol Ibuprofen [Motrin] 600 mg PO Q6HR PRN #60 tablet PRN Reason: Fever Budesonide/Formoterol 160/4.5 [Symbicort 160/4.5] 2 puff IH BIDR #2 inhaler Butalbit/Acetamin/Caff/Codeine [Fioricet-Cod 07-872-61-30 Cap] 1 each PO ONCE # 1 capsule Citalopram [CeleXA] 10 mg PO DAILY #30 tablet clonazePAM [Klonopin] 0.5 mg PO TID PRN #20 tablet PRN Reason: Anxiety Gabapentin [Neurontin] 300 mg PO TID #90 capsule Montelukast [Singulair] 10 mg PO HS #30 tablet Nicotine Patch [Nicoderm] 14 mg TD DAILY #14 patch.td24 Ondansetron [Zofran] 4 mg IV ONCE #1 vial OxyCODONE Immed Rel [Roxicodone 15 MG] 15 mg PO Q4H PRN #20 tablet PRN Reason: Pain Scale 4-7 predniSONE [PredniSONE] See Taper PO DAILY #12 tablet Home Medications: Butalb/Acetaminophen/Caffeine [Fioricet 50-300-40 mg Capsule] 1 cap PO Q4H PRN 07/19/17 [History] Butalbit/Acetamin/Caff/Codeine [Fioricet-Cod 40-257-04-30 Cap] 1 each PO ONCE # 1 capsule 07/19/17 [Rx] Ipratropium/Albuterol Neb [Duoneb] 3 ml IH Q6HR PRN 07/19/17 [History] Lisinopril [Zestril] 40 mg PO DAILY 07/19/17 [History] Losartan [Cozaar] 25 mg PO DAILY 07/19/17 [History] Metformin HCl [Glucophage] 1,000 mg PO DAILY 07/19/17 [History] Nitroglycerin [Nitrostat] 0.6 mg SL Q5M PRN 07/19/17 [History] Ondansetron [Zofran] 4 mg IV ONCE #1 vial 07/19/17 [Rx] Promethazine [Phenergan] 25 - 50 mg PO Q6HR PRN 07/19/17 [History] Ranitidine HCl [Acid Nurses Educator] 150 mg PO BID 07/19/17 [History] Acetylcysteine 10% 2 ml IH [id number] #60 inhsol 07/25/17 [Rx] Budesonide/Formoterol 160/4.5 [Symbicort 160/4.5] 2 puff IH BIDR #2 inhaler [Rx] Citalopram [CeleXA] 10 mg PO DAILY #30 tablet 07/25/17 [Rx] Gabapentin [Neurontin] 300 mg PO TID #90 capsule 07/25/17 [Rx] Ibuprofen [Motrin] 600 mg PO Q6HR PRN #60 tablet 07/25/17 [Rx] Montelukast [Singulair] 10 mg PO HS #30 tablet 07/25/17 [Rx] Nicotine Patch [Nicoderm] 14 mg TD DAILY #14 patch.td24 07/25/17 [Rx] OxyCODONE Immed Rel [Roxicodone 15 MG] 15 mg PO Q4H PRN #20 tablet 07/25/17 [Rx] clonazePAM [Klonopin] 0.5 mg PO TID PRN #20 tablet 07/25/17 [Rx] predniSONE [PredniSONE] See Taper PO DAILY #12 tablet 07/25/17 [Rx] Allergies/Adverse Reactions: 3 Allergy/AdvReac Type Severity Reaction Status Date / Time No Known Allergies Allergy Verified 07/18/17 22:41 - Notes to Outpatient Provider 1. Taper down steroids: Prednisone 40 mg daily for 3 days, then 20 mg daily for 3 days, then 10 mg daily for 3 days. Date of admission: 07/18/17 23:47 Primary care physician: PCP NONE Consults: 07/19/17 06:28 Consult to Psychiatry [CONS] Routine Consulting Provider: Psychiatry Chanel Reason for Consult: intentional overdose Call Completed: No 07/19/17 12:25 Consult to Premium Service Representative [CONS] Routine Reason for SW Consult: Patient has 14 grandchildren and had a positive urine tox screen. Assess for home/rehab needs. 07/19/17 19:07 Consult to Nutrition [CONS] Routine Comment: Consulting Provider: NUTRITION Reason for Dietary Consult: PO Supplementation Discharging clinician: Vivian Sweet Anticipated date of discharge: 07/25/17 - Patient Status Disposition: Home, Self-Care Condition: Good Functional capacity at discharge: uses cane/walker Overall status at discharge: patient is back to baseline - Discharge Instructions Follow Up With: Opal Givens DO [Resident] - 07/31/17 10:15 am - Diet and Activity Activity: increase activity as tolerated Diet: diabetic diet, low salt diet Interval History: HPI on admission: Ms. Crawford is a 52 year old female with medical history of COPD, diabetes, HTN , HLD, migraine, and psoriasis presents from the ED with unresponsive status as found by her family. Patient has history of opiate overdose and substance abuse family is unsure how long she was unresponsive. Patient was originally drowsy on arrival to ED and short of breath. Patient's original SpO2 on arrival was 76% which increased to 96% on nonrebreather mask and after administration of Narcan. Patient reports abdominal pain, nausea, vomiting, chest discomfort, fever, and weakness. Patient denies vision changes, palpitations, edema, diarrhea, constipation, weakness, numbness, confusion, presyncope, or syncope. After admission to the ED, patient's vital signs include temperature 98.5 F, heart rate is 71 bpm respiratory rate 16, BP 150/110 , and SPO2 99% with O2 via nasal cannula. Abnormal labs include ABG total CO2 26.8 potassium 3.3, calcium of 8.2. Initial troponin 0.00. Urine tox screen showed acetaminophen 32.0, and was positive for opiates, benzodiazepines, marijuana. On examination, patient's heart rate is RRR and lungs have diminished breath sounds and rhonchi bilaterally on auscultation. Patient is tearful and dyspneic during examination but denies overdose or suicidal ideation. Patient does report taking unknown drug that a friend gave her. Patient is hemodynamically stable but reports shortness of breath and dyspnea with chest discomfort on inspiration. Information taken from patient, previous medical records, chart review, and imaging. Patient is at high risk for respiratory distress and further morbidity based on current symptoms, positive tox screen, and risk factors and will be placed as observation status. Hospital course: Ms. Crawford is a 52 year old female admitted for drug overdose and COPD exacerbation. Patient was placed on close monitoring, psychiatry consult was called, patient denies suicidal idea. Psychiatry consider depression and started the Celexa. Patient also was treated with antibiotics, steroids, bronchodilator, Singulair, and Mucomyst IH. After treatment, her shortness of breath has been getting better and almost reach her baseline. Patient has home oxygen already, her oxygen saturation Rate 98% on 3 L oxygen. Patient also seen by social work and all social issues has been addressed. Patient will discharge home. She needed pain medication and medication for anxiety. Considering her history of drug overdose, we are asking her son Sumeet Crawford to control the medication for her. Patient agrees to give the prescription to her son. Prescription of oxycodone and Klonopin has been given patient's son. I saw and examined the patient today. She is awake alert, oriented 3. Mild shortness of breath is at about her baseline. Vitals are stable. On exam, still trace wheezes bilaterally, probably it is her baseline. Mild elevated WBC noticed, however, patient is on steroid, most likely it is due to steroid use. Time spent discussing smoking cessation with patient: 3 to 10 minutes - Time Spent with Patient Total time spent providing and/or coordinating discharge services: 40 minutes Greater than 30 minutes - Constitutional Vitals: Temp Pulse Resp BP Pulse Ox 98.1 F 77 24 148/94 98 07/25/17 07:24 07/25/17 07:24 07/25/17 11:35 07/25/17 07:24 07/25/17 11:35 General appearance: Present: cooperative, A&O X 3, no acute distress, underweight, answers questions appropriately - Head Head exam: Present: atraumatic, normocephalic - Eye Eye exam: Present: PERRL, conjuntiva pink, sclera anicteric Pupils: Present: PERRL - Neck Neck exam general surgery: Present: supple, trachea midline. Absent: lymphadenopathy - Respiratory Respiratory exam: Present: CTAB, wheezes (trace wheezes bilaterally). Absent: accessory muscle use, rales, rhonchi - Cardiovascular Cardiovascular exam: Present: RRR, +S1, +S2. Absent: diastolic murmur, gallop, rubs, systolic murmur - GI/Abdominal GI/Abdominal exam: Present: normal bowel sounds, soft, no peritoneal signs. Absent: distended, tenderness - Extremities Exam Extremities exam: Present: warm, radial pulses palpable and symmetrical. Absent : calf tenderness, cyanotic, pedal edema - Neurological Exam Neurological exam: Present: CN II-XII intact, oriented X3, no focal deficits. Absent: pronater drift, facial droop, speech deficit - Skin Skin exam: Present: dry, intact
== END 2017-07-25 16:00 | disposition home or self-care (01) ==
LOC: 2NENU 20:23 → EMEROO 20:23 → 2NENU 23:42
PROVIDERS: ADMIT Family Medicine; ATTEND Internal Medicine

== ENCOUNTER 2017-10-20 20:10 | Observation (INO) ==
[2017-10-20] MEDS ORDERED: Aspirin 81 MG TAB.CHEW PO ONE (20:12)
[2017-10-20] MEDS ORDERED: Ipratropium/Albuterol Neb 3 ML IH ONE (20:13)
--- NOTE | 2017-10-20 20:17 | Emergency Department Note ---
Disposition Clinical Impression: COPD with acute exacerbation Chest pain Qualifiers: Chest pain type: unspecified Qualified Code(s): R07.9 - Chest pain, unspecified Disposition: Admitted As Inpatient Condition: Fair Referrals: Opal Givens DO [Primary Care Provider] - Forms: ED Satisfaction Letter Time of Disposition: 21:59 Chest Pain HPI - General Chief Complaint: ED Chest Pain Stated Complaint: Chest pain Time Seen by Provider: 10/20/17 20:12 Source: patient, EMS Mode of arrival: EMS Limitations: no limitations Vital Signs Reviewed: Yes Nursing Notes Reviewed: Yes - History of Present Illness HPI Narrative: 52-year-old with history COPD comes in with increasing shortness of breath chest pain. Patient states she hasn't felt well for a couple of days. States she hasn't been able to get off the couch. States she's had a cough and congestion. Pt complaint: chest pain Onset (ago): day(s) Duration: intermittent Onset: during rest Pain Location: substernal, left chest Quality: tightness, aching, heaviness Pain Radiation: none Improves with: nothing Worsens with: exertion Context: recent illness Treatments prior to arrival chest pain: none - Related Data Home Medications Medication Instructions Recorded Confirmed Butalb/Acetaminophen/Caffeine 1 cap PO Q4H PRN 07/19/17 07/19/17 [Fioricet 50-300-40 mg Capsule] Ipratropium/Albuterol Neb [Duoneb] 3 ml IH Q6HR PRN 07/19/17 07/19/17 Lisinopril [Zestril] 40 mg PO DAILY 07/19/17 07/19/17 Losartan [Cozaar] 25 mg PO DAILY 07/19/17 07/19/17 Metformin HCl [Glucophage] 1,000 mg PO DAILY 07/19/17 07/19/17 Nitroglycerin [Nitrostat] 0.6 mg SL Q5M PRN 07/19/17 07/19/17 Promethazine [Phenergan] 25 - 50 mg PO Q6HR PRN 07/19/17 07/19/17 Ranitidine HCl [Acid [employer] Magistrate] 150 mg PO BID 07/19/17 07/19/17 Previous Rx's Medication Instructions Recorded Butalbit/Acetamin/Caff/Codeine 1 each PO ONCE #1 capsule 07/19/17 [Fioricet-Cod 58-481-19-30 Cap] Ondansetron [Zofran] 4 mg IV ONCE #1 vial 07/19/17 Acetylcysteine 10% 2 ml IH [id number] #60 inhsol 07/25/17 Budesonide/Formoterol 160/4.5 2 puff IH BIDR #2 inhaler 07/25/17 [Symbicort 160/4.5] Citalopram [CeleXA] 10 mg PO DAILY #30 tablet 07/25/17 Gabapentin [Neurontin] 300 mg PO TID #90 capsule 07/25/17 Ibuprofen [Motrin] 600 mg PO Q6HR PRN #60 tablet 07/25/17 Montelukast [Singulair] 10 mg PO HS #30 tablet 07/25/17 Nicotine Patch [Nicoderm] 14 mg TD DAILY #14 patch.td24 07/25/17 OxyCODONE Immed Rel [Roxicodone 15 15 mg PO Q4H PRN #20 tablet 07/25/17 MG] clonazePAM [Klonopin] 0.5 mg PO TID PRN #20 tablet 07/25/17 predniSONE [PredniSONE] See Taper PO DAILY #12 tablet 07/25/17 Allergies Allergy/AdvReac Type Severity Reaction Status Date / Time No Known Allergies Allergy Verified 07/18/17 22:41 All systems ED: reviewed and negative except as stated. Constitutional: Denies: fever, chills, weakness, weight change Eyes: Denies: eye pain, eye discharge, vision change ENT ED: Denies: ear pain, throat pain, dental pain, hearing loss, epistaxis, congestion, dysphagia Cardiovascular: Reports: chest pain. Denies: palpitations, dyspnea on exertion , edema, syncope Respiratory: Reports: cough, dyspnea, wheezes. Denies: hemoptysis, stridor Gastrointestinal: Reports: diarrhea. Denies: abdominal pain, nausea, vomiting, constipation, hematemesis, melena, hematochezia Genitourinary: Denies: dysuria, frequency, hematuria, discharge Musculoskeletal: Denies: back pain, neck pain, arthralgia, myalgia Integumentary: Denies: rash, abrasion, lesions Neurological: Denies: headache, weakness, numbness, paresthesias, confusion, abnormal gait, vertigo Psychiatric: Denies: anxiety, depression, suicidal thoughts, homicidal thoughts , auditory hallucinations, visual hallucinations Endocrine: Denies: fatigue Hematological/Lymphatic: Denies: easy bleeding, easy bruising Allergic/Immunologic: Denies: facial swelling, urticaria Chest Pain PMH - Past Medical History Medical history: Reports: non-contributory, COPD, diabetes, hyperlipidemia, hypertension, migraine, other (psoriasis) Psychiatric history: Reports: anxiety, depression - Social History Smoking Status: Current every day smoker Alcohol use: Reports: none Drug use: Reports: prescription drug abuse Physical Exam - General Limitations: no limitations General appearance: alert, in no apparent distress - Head Head exam: atraumatic, normocephalic, normal inspection - Eye Eye exam: Present: normal appearance, PERRL, EOMI - ENT ENT exam: normal exam, normal oropharynx, mucous membranes moist - Neck Neck exam: Present: normal inspection, full ROM, trachea midline - Chest Chest inspection: Present: normal inspection, symmetric chest wall rise - Respiratory Respiratory exam: Present: wheezes, accessory muscle use, prolonged expiratory phase - Cardiovascular Cardiovascular exam: Present: regular rate, normal rhythm, normal heart sounds - Abdominal Exam Abdominal exam: Present: soft, Non-Tender. Absent: tenderness, distention, guarding, rebound, rigidity - Extremities Exam Extremities exam: Present: normal inspection, full ROM. Absent: tenderness, pedal edema - Expanded Lower Extremity Exam Neurovascular/Tendon exam: Absent: motor deficit, sensory deficit, tendon deficit Gait: observed and normal - Back Exam Back exam: Present: normal inspection, full ROM. Absent: tenderness - Neurological Exam Neurological exam: Present: alert, oriented X3 - Psychiatric Psychiatric exam: Present: normal affect, normal mood - Skin Skin exam: Present: warm, dry, intact, normal color Course - Reevaluation(s) Reevaluation #1: 52-year-old with a history COPD comes in complaining of worsening respiratory complaints and chest discomfort. Workup here EKG shows no acute change her initial troponin was negative. Patient will be admitted for further evaluation and treatment. Time: 21:58 - Consultations Consultation #1: Discussed with , admit. Time: 21:58 Vital Signs Temperature 97.9 F 10/20/17 20:13 Pulse Rate 74 10/20/17 20:13 Respiratory Rate 20 10/20/17 20:13 Blood Pressure 175/113 12/17/17 20:13 O2 Sat by Pulse Oximetry 100 10/20/17 20:13 Temperature 97.9 F 10/20/17 20:13 Pulse Rate 70 10/20/17 20:22 Respiratory Rate 17 10/20/17 20:36 Blood Pressure 193/109 10/20/17 20:36 O2 Sat by Pulse Oximetry 100 10/20/17 20:36 Oxygen Delivery Oxygen Delivery Room Air Chest Pain - Lab Data Lab results reviewed: Yes I reviewed the patient's lab results. Result diagrams: 10/20/17 20:24 10/20/17 20:24 Lab Results 10/20/17 10/20/17 10/20/17 Range/Units 20:24 20:24 20:24 WBC 11.1 (4.3-11.1) K/mcL RBC 4.50 (3.82-4.97) M/mcL Hgb 12.5 (11.5-15.4) g/dL Hct 39.8 (35.3-44.9) % MCV 88.4 (83.0-100.0) fL MCH 27.8 L (28.0-33.3) pg MCHC 31.4 L (31.6-35.5) g/dL RDW 16.9 H (11.5-14.5) % Plt Count 376 (140-400) K/mcL MPV 10.2 (9.4-12.4) fL Immature Gran % 0.2 (0-4) % Seg Neutrophils % 51.4 % Lymphocytes % 41.3 % Monocytes % 4.8 % Eosinophils % 1.9 % Basophils % 0.4 % Neutrophils # 5.7 (1.6-8.9) K/mcL Lymphocytes # 4.6 (0.6-4.6) K/mcL Monocytes # 0.5 (0.0-1.3) K/mcL Eosinophils # 0.2 (0.0-0.6) K/mcL Basophils # 0.0 (0.0-0.2) K/mcL PT 11.0 (9.4-12.1) Seconds INR 1.0 APTT 33.8 (26.0-36.0) Seconds Sodium 142 (136-145) mEq/L Potassium 3.4 L (3.5-4.5) mEq/L Chloride 115 H (98-109) mEq/L Carbon Dioxide 17 L (19-29) mEq/L BUN 8 (7-20) mg/dL Creatinine 0.73 (0.57-1.11) mg/dL Est GFR ( Amer) > 60 (> 60) Est GFR (Non-Af Amer) > 60 (> 60) BUN/Creatinine Ratio 11 (6-26) Glucose 84 (70-99) mg/dL Calculated Osmolality 292 (280-300) Calcium 8.4 L (8.6-10.8) mg/dL Troponin I (0-0.03) ng/mL Urine Color (Yellow) Urine Clarity (Clear) Urine pH (5.0-8.0) pH Units Ur Specific [place] (1.010-1.025) Urine Protein (Neg-Trace) mg/dL Urine Glucose (UA) (Normal) mg/dL Urine Ketones (Negative) mg/dL Urine Blood (Negative) Urine Nitrite (Negative) Urine Bilirubin (Negative) Urine Urobilinogen (Normal) mg/dL Ur Leukocyte Esterase (Negative) Urine Microscopic RBC (0-3) per hpf Urine Microscopic WBC (0-3) per hpf Ur Squamous Epith Cells (None-Few) per lpf Urine Bacteria (None-Few) per hpf Hyaline Casts (None-Few) per lpf Ur Culture Indicated? (NO) 10/20/17 10/20/17 Range/Units 20:24 21:00 WBC (4.3-11.1) K/mcL RBC (3.82-4.97) M/mcL Hgb (11.5-15.4) g/dL Hct (35.3-44.9) % MCV (83.0-100.0) fL MCH (28.0-33.3) pg MCHC (31.6-35.5) g/dL RDW (11.5-14.5) % Plt Count (140-400) K/mcL MPV (9.4-12.4) fL Immature Gran % (0-4) % Seg Neutrophils % % Lymphocytes % % Monocytes % % Eosinophils % % Basophils % % Neutrophils # (1.6-8.9) K/mcL Lymphocytes # (0.6-4.6) K/mcL Monocytes # (0.0-1.3) K/mcL Eosinophils # (0.0-0.6) K/mcL Basophils # (0.0-0.2) K/mcL PT (9.4-12.1) Seconds INR APTT (26.0-36.0) Seconds Sodium (136-145) mEq/L Potassium (3.5-4.5) mEq/L Chloride (98-109) mEq/L Carbon Dioxide (19-29) mEq/L BUN (7-20) mg/dL Creatinine (0.57-1.11) mg/dL Est GFR ( Amer) (> 60) Est GFR (Non-Af Amer) (> 60) BUN/Creatinine Ratio (6-26) Glucose (70-99) mg/dL Calculated Osmolality (280-300) Calcium (8.6-10.8) mg/dL Troponin I 0.00 (0-0.03) ng/mL Urine Color Yellow (Yellow) Urine Clarity Clear (Clear) Urine pH 6.5 (5.0-8.0) pH Units Ur Specific [place] 1.019 (1.010-1.025) Urine Protein 30 H (Neg-Trace) mg/dL Urine Glucose (UA) Normal (Normal) mg/dL Urine Ketones Negative (Negative) mg/dL Urine Blood Negative (Negative) Urine Nitrite Negative (Negative) Urine Bilirubin Negative (Negative) Urine Urobilinogen Normal (Normal) mg/dL Ur Leukocyte Esterase Negative (Negative) Urine Microscopic RBC 3-5 H (0-3) per hpf Urine Microscopic WBC 0-3 (0-3) per hpf Ur Squamous Epith Cells Few (None-Few) per lpf Urine Bacteria None Seen (None-Few) per hpf Hyaline Casts None Seen (None-Few) per lpf Ur Culture Indicated? NO (NO) - Radiology Data Radiology results reviewed: Yes I reviewed the patient's radiology results. Chest X-Ray 10/20/17 20:12 IMPRESSION: No acute process. D/ / Dina Beverly MD / Dina Beverly MD Interpreting Provider: Dina Beverly MD Heart Score - Score History: Slightly Suspicious EKG: Non Specific repolarisation Disturbance Age: 45-65 Risk Factors: 1-2 risk factors Troponin: Less than normal limit HEART Score Total: 3
[2017-10-20 20:41] LABS: Activated Partial Thrombo Time 33.8 Seconds (26.0-36.0)
[2017-10-20 20:42] LABS: Basophils % 0.4 %; Eosinophils # 0.2 K/mcL (0.0-0.6); Eosinophils % 1.9 %; Hematocrit 39.8 % (35.3-44.9); Hemoglobin 12.5 g/dL (11.5-15.4); Immature Granulocytes % 0.2 % (0-4); Lymphocytes # 4.6 K/mcL (0.6-4.6); Lymphocytes % 41.3 %; Mean Corpuscular HGB Conc 31.4 g/dL (31.6-35.5); Mean Corpuscular Hemoglobin 27.8 pg (28.0-33.3); Mean Corpuscular Volume 88.4 fL (83.0-100.0); Mean Platelet Volume 10.2 fL (9.4-12.4); Monocytes # 0.5 K/mcL (0.0-1.3); Monocytes % 4.8 %; Neutrophils # 5.7 K/mcL (1.6-8.9); Platelet Count 376 K/mcL (140-400); Red Cell Distribution Width 16.9 % (11.5-14.5); Segmented Neutrophils % 51.4 %
[2017-10-20 20:45] LABS: BUN/Creatinine Ratio 11 (6-26); Blood Urea Nitrogen 8 mg/dL (7-20); Calcium 8.4 mg/dL (8.6-10.8); Carbon Dioxide 17 mEq/L (19-29); Chloride 115 mEq/L (98-109); Glucose 84 mg/dL (70-99); Osmolality,Calculated 292 (280-300); Potassium 3.4 mEq/L (3.5-4.5); Sodium 142 mEq/L (136-145); eGFR For African Americans > 60 (> 60); eGFR For Non-African Americans > 60 (> 60)
[2017-10-20 21:11] LABS: Bilirubin,Urine Negative (Negative); Blood,Urine Negative (Negative); Clarity,Urine Clear (Clear); Color,Urine Yellow (Yellow); Glucose,Urine (UA) Normal (Normal); Ketones,Urine Negative (Negative); Leukocyte Esterase,Urine Negative (Negative); Nitrite,Urine Negative (Negative); PH,Urine 6.5 pH Units (5.0-8.0); Protein,Urine 30 mg/dL (Neg-Trace); Specific Gravity,Urine 1.019 (1.010-1.025); Urobilinogen,Urine Normal (Normal)
[2017-10-20 21:14] LABS: Bacteria,Urine None Seen per hpf (None-Few); Hyaline Casts,Urine None Seen per lpf (None-Few); Squamous Epithelial Cell,Urine Few per lpf (None-Few); WBC,Urine 0-3 per hpf (0-3)
[2017-10-20] MEDS ORDERED: *HR* OxyCODONE/APAP 5/325 TABLET PO ONE (21:56)
[2017-10-20] MEDS ORDERED: methylPREDNISolone 125 MG/2 ML VIAL IVP ONE (21:56)
[2017-10-20] MEDS ORDERED: Ibuprofen 600 MG TABLET PO PRN (22:51)
[2017-10-20] MEDS ORDERED: Ondansetron 4 MG/2 ML VIAL IVP ONE (22:52)
[2017-10-20] MEDS ORDERED: Ipratropium/Albuterol Neb 3 ML IH PRN (22:53)
[2017-10-20] MEDS ORDERED: Naloxone 0.4 MG/ML INJ IVP PRN (22:53)
[2017-10-20] MEDS ORDERED: Dextrose Gel 15 GM/37.5 ML TUBE PO PRN ×2 (22:58)
[2017-10-20] MEDS ORDERED: *HR* Dextrose 50 % in Water (Syg) 50 ML SYRINGE IVP PRN (22:58)
[2017-10-20] MEDS ORDERED: D5% in Water 1,000 ML IVC PRN (22:58)
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
[2017-10-20] MEDS: Azithromycin 500 MG in D5% in Water 250 ML IVPB SCH (23:41)
[2017-10-21] MEDS: *HR* OxyCODONE Immed Rel 15 MG TABLET PO PRN ×5 (00:36→20:52)
[2017-10-21] MEDS: Ringers Solution, Lactated 1,000 ML IVC SCH ×2 (00:45→21:02)
[2017-10-21] MEDS ORDERED: clonazePAM 1 MG TABLET PO ONE (01:23)
[2017-10-21] MEDS: Gabapentin 300 MG CAPSULE PO SCH ×4 (01:46→20:52)
[2017-10-21 01:52] LABS: Adenovirus Not Detected (Not Detect); Bordetella Pertussis Not Detected (Not Detect); Chlamydophila pneumoniae Not Detected (Not Detect); Coronavirus 229E Not Detected (Not Detect); Coronavirus HKU1 Not Detected (Not Detect); Coronavirus NL63 Not Detected (Not Detect); Coronavirus OC43 Not Detected (Not Detect); Human Metapneumovirus Not Detected (Not Detect); Human Rhinovirus/Enterovirus Not Detected (Not Detect); Influenza A Subtype 2009 H1 Not Detected (Not Detect); Influenza A Untypeable Not Detected (Not Detect); Influenza B Not Detected (Not Detect); Mycoplasma pneumoniae Not Detected (Not Detect); Parainfluenza Virus 1 Not Detected (Not Detect); Parainfluenza Virus 2 Not Detected (Not Detect); Parainfluenza Virus 3 Not Detected (Not Detect); Parainfluenza Virus 4 Not Detected (Not Detect); Respiratory Syncytial Virus Not Detected (Not Detect)
[2017-10-21] MEDS: Ondansetron 4 MG/2 ML VIAL IVP PRN ×5 (02:13→20:53)
[2017-10-21 03:08] LABS: Basophils % 0.2 %; Eosinophils % 0.2 %; Hematocrit 37.7 % (35.3-44.9); Hemoglobin 11.9 g/dL (11.5-15.4); Immature Granulocytes % 0.3 % (0-4); Lymphocytes # 1.1 K/mcL (0.6-4.6); Lymphocytes % 16.1 %; Mean Corpuscular HGB Conc 31.6 g/dL (31.6-35.5); Mean Corpuscular Hemoglobin 27.9 pg (28.0-33.3); Mean Corpuscular Volume 88.5 fL (83.0-100.0); Mean Platelet Volume 10.1 fL (9.4-12.4); Monocytes % 0.6 %; Neutrophils # 5.5 K/mcL (1.6-8.9); Platelet Count 318 K/mcL (140-400); Red Blood Count 4.26 M/mcL (3.82-4.97); Segmented Neutrophils % 82.6 %
[2017-10-21 03:22] LABS: BUN/Creatinine Ratio 9 (6-26); Blood Urea Nitrogen 6 mg/dL (7-20); Carbon Dioxide 18 mEq/L (19-29); Chloride 116 mEq/L (98-109); Glucose 132 mg/dL (70-99); Osmolality,Calculated 291 (280-300); Potassium 3.6 mEq/L (3.5-4.5); Sodium 141 mEq/L (136-145); eGFR For African Americans > 60 (> 60); eGFR For Non-African Americans > 60 (> 60)
[2017-10-21] MEDS ORDERED: *HR* OxyCODONE Immed Rel 5 MG TABLET PO ONE ×2 (03:22→03:38)
[2017-10-21] MEDS ORDERED: *HR* OxyCODONE Immed Rel 15 MG TABLET PO ONE (03:59)
[2017-10-21] MEDS ORDERED: Ondansetron 4 MG/2 ML VIAL IVP SCH (04:00)
[2017-10-21] MEDS: *HR* Enoxaparin 40 MG/0.4 ML SYRINGE SQ SCH (04:11)
[2017-10-21 04:20] LABS: Anisocytosis 1+ (Not Present); Platelet Estimate Normal (Normal)
[2017-10-21 04:21] LABS: Large Platelets Present (Not Present)
[2017-10-21] MEDS: Ipratropium/Albuterol Neb 3 ML IH SCH ×4 (04:53→21:49)
[2017-10-21] MEDS: Famotidine 20 MG TABLET PO SCH ×2 (07:55→15:32)
[2017-10-21] MEDS: Lisinopril 20 MG TABLET PO SCH (07:55)
[2017-10-21] MEDS: MethylPREDNISolone 40 MG/ML VIAL IVP SCH ×2 (07:56→20:53)
[2017-10-21] MEDS: Insulin LISPRO 300 UNITS/3 ML VIAL SQ SCH ×4 (07:56→21:03)
[2017-10-21] MEDS ORDERED: Gabapentin 300 MG CAPSULE PO SCH (09:00)
[2017-10-21] MEDS: Budesonide/Formoterol 160/4.5 MDI IH SCH ×2 (10:42→21:50)
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
--- NOTE | 2017-10-21 17:26 | Electrocardiograph Report ---
[place] [id number] Test Date: 2017-10-21 Pat Name: Sharlene Crawford Department: 113 Room: 3B43 Gender: F [employer]: NICKOLAS : 1965 Requested By: Suzan Aburto Order Number: [id number] Reading MD: Kristin Darden Measurements Intervals [place] Rate: 67 P: 72 PA: 203 QRS: 55 QRSD: 88 T: 69 QT: 394 QTc: 410 Interpretive Statements SINUS RHYTHM Electronically Signed On 10-21-2017 17:25:15 EST by Kristin Darden
[2017-10-22] MEDS: Azithromycin 500 MG in D5% in Water 250 ML IVPB SCH ×2 (00:05→22:29)
[2017-10-22] MEDS: *HR* OxyCODONE Immed Rel 15 MG TABLET PO PRN ×6 (01:17→22:26)
[2017-10-22] MEDS: Ondansetron 4 MG/2 ML VIAL IVP PRN ×5 (01:17→22:27)
[2017-10-22] MEDS: Ipratropium/Albuterol Neb 3 ML IH SCH ×4 (04:00→22:03)
[2017-10-22] MEDS: *HR* Enoxaparin 40 MG/0.4 ML SYRINGE SQ SCH (05:10)
[2017-10-22] MEDS: Insulin LISPRO 300 UNITS/3 ML VIAL SQ SCH ×4 (08:05→20:44)
[2017-10-22] MEDS: Famotidine 20 MG TABLET PO SCH (09:50)
[2017-10-22] MEDS: Lisinopril 20 MG TABLET PO SCH (09:50)
[2017-10-22] MEDS: MethylPREDNISolone 40 MG/ML VIAL IVP SCH ×2 (09:52→20:44)
[2017-10-22] MEDS: Budesonide/Formoterol 160/4.5 MDI IH SCH ×2 (10:06→22:04)
[2017-10-22] MEDS: Gabapentin 300 MG CAPSULE PO SCH ×3 (10:17→20:43)
--- NOTE | 2017-10-22 11:13 | Electrocardiograph Report ---
[place] [id number] Test Date: 2017-10-20 Pat Name: Sharlene Crawford Department: 103 Room: 3B43 Gender: F [employer] Crewmember: JEAN PIERRE : 1965 Requested By: Jacobo Lopez Order Number: [id number] Reading MD: Jaison Chakraborty DO Measurements Intervals [place] Rate: 72 P: 78 OR: 201 QRS: 66 QRSD: 81 T: 76 QT: 382 QTc: 407 Interpretive Statements SINUS RHYTHM Electronically Signed On 10-22-2017 11:11:47 EST by Jaison Chakraborty DO
[2017-10-22] MEDS: Nicotine 7 MG PATCH.TD24 TD SCH (14:07)
--- NOTE | 2017-10-22 17:16 | Internal Med Progress Note ---
Date of Encounter: 10/22/17 Time of Encounter: 10:40 - Assessment and plan (1) COPD with acute exacerbation Current Visit: Yes Status: Acute Assessment and plan: Patient with acute exacerbation of COPD. She reports difficulty breathing, increasing dyspnea,, cough, feeling fatigued for a week. She denies chest pain. She states it feels she feels like she has to cough, but cannot. There is inspiratory and expiratory wheezing, as well as rhonchi heard in all posterior lung nixon. Patient is requiring an oxygen mask at this time. Continue bronchodilators, IV antibiotics, IV steroids. Continue telemetry Continue expectorant. (2) Anxiety Current Visit: Yes Status: Chronic Assessment and plan: Continue citalopram. Patient asymptomatic at this time. (3) DVT prophylaxis Current Visit: Yes Status: Acute Assessment and plan: Lovenox subcutaneous daily. (4) Diabetes Current Visit: Yes Status: Chronic Assessment and plan: A1c 5.5% in July,. Redraw in the morning since it has been greater than 90 days. Expect hyperglycemia due to high-dose IV steroids. Continue sliding scale insulin, Accu-Cheks before meals at bedtime, diabetic diet. Qualifiers: Diabetes mellitus type: type 2 Diabetes mellitus complication status: with neurologic complications Diabetes mellitus complication detail: with polyneuropathy Diabetes mellitus jail insulin use: without extermination inspector use Qualified Code(s): E11.42 - Type 2 diabetes mellitus with diabetic polyneuropathy (5) HTN (hypertension) Current Visit: Yes Status: Chronic Assessment and plan: Blood pressure is well controlled. Continue home medication regimen. Monitor vital signs. Qualifiers: Hypertension type: essential hypertension Qualified Code(s): I10 - Essential (primary) hypertension (6) HLD (hyperlipidemia) Current Visit: Yes Status: Chronic Assessment and plan: Continue home medications. Qualifiers: Hyperlipidemia type: pure hypercholesterolemia Qualified Code(s): E78.00 - Pure hypercholesterolemia, unspecified; E78.0 - Pure hypercholesterolemia (7) Chronic pain Current Visit: Yes Status: Chronic Assessment and plan: Continue home medications. Qualifiers: Chronic pain type: chronic pain syndrome Qualified Code(s): G89.4 - Chronic pain syndrome - Time Spent With Patient less than 15 minutes - Subjective Interval history: Patient was seen and assessed the bedside at 10:40 AM. Patient is obviously short of breath and is wearing oxygen by mask. There is wheezing and rhonchi heard in all posterior nixon. Patient states she feels that she is well enough to go home, however she admits that she is not back to baseline it is going to day for continued treatment. She denies chest pain, headache, nausea or vomiting, no abdominal pain. There is no peripheral edema. She denies fever nicotine patch and states that she is only smoking one half cigarettes per day. Have added Mucinex and she said that she feels that she needs to cough something up, but cannot. - Constitutional Vitals: Temp Pulse Resp BP Pulse Ox 97.9 F 88 15 136/78 98 10/22/17 15:22 10/22/17 15:22 10/22/17 15:23 10/22/17 15:22 10/22/17 15:23 General appearance: Present: cooperative, pleasant, answers questions appropriately Exam: Moderate distress. - Head Head exam: Present: atraumatic, normocephalic - Eye Eye exam: Present: PERRL, conjuntiva pink, sclera anicteric Pupils: Present: PERRL - Neck Neck exam general surgery: Present: supple, trachea midline. Absent: lymphadenopathy - Respiratory Respiratory exam: Present: CTAB. Absent: accessory muscle use, rales, rhonchi, wheezes - Cardiovascular Cardiovascular exam: Present: RRR, +S1, +S2. Absent: diastolic murmur, gallop, rubs, systolic murmur - GI/Abdominal GI/Abdominal exam: Present: normal bowel sounds, soft, no peritoneal signs. Absent: distended, tenderness - Extremities Exam Extremities exam: Present: warm, radial pulses palpable and symmetrical. Absent : calf tenderness, cyanotic, pedal edema - Neurological Exam Neurological exam: Present: CN II-XII intact, oriented X3, no focal deficits. Absent: pronater drift, facial droop, speech deficit - Skin Skin exam: Present: dry, intact Internal Medicine: Result - Labs CBC & Chem 7: 10/21/17 02:56 10/21/17 02:56 - ABG Interpretation ABG results: PT/INR, D-dimer PT 11.0 Seconds (9.4-12.1) 10/20/17 20:24 Consult Discharge Plan - Plan Referrals: Opal Givens, [Primary Care Provider] -
[2017-10-22] MEDS ORDERED: Albuterol 2.5 MG/3 ML NEBULIZER IH PRN (17:17)
[2017-10-23] MEDS: Ipratropium/Albuterol Neb 3 ML IH SCH ×3 (04:13→15:29)
[2017-10-23] MEDS: *HR* OxyCODONE Immed Rel 15 MG TABLET PO PRN ×3 (04:30→13:26)
[2017-10-23 04:34] LABS: Basophils % 0.1 %; Hematocrit 35.1 % (35.3-44.9); Hemoglobin 10.8 g/dL (11.5-15.4); Immature Granulocytes % 0.4 % (0-4); Lymphocytes # 1.8 K/mcL (0.6-4.6); Lymphocytes % 14.5 %; Mean Corpuscular HGB Conc 30.8 g/dL (31.6-35.5); Mean Corpuscular Hemoglobin 27.4 pg (28.0-33.3); Mean Corpuscular Volume 89.1 fL (83.0-100.0); Mean Platelet Volume 10.9 fL (9.4-12.4); Monocytes # 0.5 K/mcL (0.0-1.3); Monocytes % 4.1 %; Platelet Count 257 K/mcL (140-400); Red Blood Count 3.94 M/mcL (3.82-4.97); Red Cell Distribution Width 17.8 % (11.5-14.5); Segmented Neutrophils % 80.9 %
[2017-10-23 04:36] LABS: Neutrophils # 10.1 K/mcL (1.6-8.9)
[2017-10-23] MEDS: Ondansetron 4 MG/2 ML VIAL IVP PRN ×3 (04:36→13:25)
[2017-10-23 04:45] LABS: Hemoglobin A1C 4.9 %
[2017-10-23 05:08] LABS: BUN/Creatinine Ratio 35 (6-26); Blood Urea Nitrogen 18 mg/dL (6-20); Calcium 8.7 mg/dL (8.6-10.3); Carbon Dioxide 31 mEq/L (23-29); Chloride 105 mEq/L (98-107); Glucose 113 mg/dL (70-105); Osmolality,Calculated 291 (280-300); Potassium 4.7 mEq/L (3.5-5.1); Sodium 139 mEq/L (136-145); eGFR For African Americans > 60 (> 60); eGFR For Non-African Americans > 60 (> 60)
[2017-10-23] MEDS: *HR* Enoxaparin 40 MG/0.4 ML SYRINGE SQ SCH (05:50)
[2017-10-23] MEDS: Insulin LISPRO 300 UNITS/3 ML VIAL SQ SCH ×2 (09:05→12:25)
[2017-10-23] MEDS: Lisinopril 20 MG TABLET PO SCH (09:05)
[2017-10-23] MEDS: Gabapentin 300 MG CAPSULE PO SCH ×2 (09:07→13:26)
[2017-10-23] MEDS: Famotidine 20 MG TABLET PO SCH (09:07)
[2017-10-23] MEDS: MethylPREDNISolone 40 MG/ML VIAL IVP SCH (09:08)
[2017-10-23] MEDS: Nicotine 7 MG PATCH.TD24 TD SCH (09:08)
[2017-10-23] MEDS: Budesonide/Formoterol 160/4.5 MDI IH SCH (10:33)
--- NOTE | 2017-10-23 15:19 | Discharge Summary ---
Date of Encounter: 10/23/17 Time of Encounter: 10:10 - Discharge Diagnosis (1) COPD with acute exacerbation Priority: Primary Status: Acute Comments: Patient with acute exacerbation of COPD. She reports difficulty breathing, increasing dyspnea, cough, feeling fatigued for a week. She denies chest pain. She states it feels she feels like she has to cough, but cannot. There is still faint wheezing heard in post lung nixon. No respiratory distress noted. She denies chest pain or increased SOB above baseline. Pt is back to her baseline 02 use and is using a nasal canula. Continue bronchodilators, po steroids, Mucinex. Chest X-Ray 10/20/17 20:12 IMPRESSION: No acute process. D/ / Dina Beverly MD / Dina Beverly MD Interpreting Provider: Dina Beverly MD (2) Anxiety Priority: Secondary Status: Chronic Comments: Chronic. Continue home medications. (3) DVT prophylaxis Priority: Secondary Status: Acute Comments: Lovenox subcutaneous (4) Diabetes Priority: Secondary Status: Chronic Comments: Continue home medications and Accu-Chek regimen. Qualifiers: Diabetes mellitus type: type 2 Diabetes mellitus complication status: with neurologic complications Diabetes mellitus complication detail: with polyneuropathy Diabetes mellitus terminal operations supervisor insulin use: without prison use Qualified Code(s): E11.42 - Type 2 diabetes mellitus with diabetic polyneuropathy (5) HTN (hypertension) Priority: Secondary Status: Chronic Comments: Chronic. Continue medications. Qualifiers: Hypertension type: essential hypertension Qualified Code(s): I10 - Essential (primary) hypertension (6) HLD (hyperlipidemia) Priority: Secondary Status: Chronic Comments: Chronic. Continue home medications. Qualifiers: Hyperlipidemia type: pure hypercholesterolemia Qualified Code(s): E78.00 - Pure hypercholesterolemia, unspecified; E78.0 - Pure hypercholesterolemia (7) Chronic pain Priority: Secondary Status: Chronic Comments: Continue home medications. Patient is requesting Percocet for home. She has Fioricet and gabapentin for home. Patient reports that she has an upcoming appointment with pain management. I did run an [facility] report on her, no recent narcotic prescriptions, she does get clonazepam and gabapentin. Qualifiers: Chronic pain type: chronic pain syndrome Qualified Code(s): G89.4 - Chronic pain syndrome - Discharge Medications Prescriptions: Azithromycin [Zithromax] 250 mg PO Q24H #5 tablet GuaiFENesin ER [Mucinex] 600 mg PO BID PRN #30 tbbp.12hr PRN Reason: Cough predniSONE [PredniSONE] 10 mg PO DAILY #33 tablet Home Medications: Butalb/Acetaminophen/Caffeine [Fioricet 50-300-40 mg Capsule] 1 cap PO Q4H PRN 07/19/17 [History] Ipratropium/Albuterol Neb [Duoneb] 3 ml IH Q6HR PRN 07/19/17 [History] Lisinopril [Zestril] 40 mg PO DAILY 07/19/17 [History] Metformin HCl [Glucophage] 1,000 mg PO DAILY 07/19/17 [History] Nitroglycerin [Nitrostat] 0.6 mg SL Q5M PRN 07/19/17 [History] Promethazine [Phenergan] 25 - 50 mg PO Q6HR PRN 07/19/17 [History] Ranitidine HCl [Acid Clinical Faculty] 150 mg PO BID 07/19/17 [History] Budesonide/Formoterol 160/4.5 [Symbicort 160/4.5] 2 puff IH BIDR #2 inhaler [Rx] Montelukast [Singulair] 10 mg PO HS #30 tablet 07/25/17 [Rx] Nicotine Patch [Nicoderm] 14 mg TD DAILY #14 patch.td24 07/25/17 [Rx] Atorvastatin [Lipitor] 40 mg PO HS 10/21/17 [History] Gabapentin [Neurontin] 600 mg PO TID 10/21/17 [History] Azithromycin [Zithromax] 250 mg PO Q24H #5 tablet 10/23/17 [Rx] GuaiFENesin ER [Mucinex] 600 mg PO BID PRN #30 tbbp.12hr 10/23/17 [Rx] predniSONE [PredniSONE] 10 mg PO DAILY #33 tablet 10/23/17 [Rx] Allergies/Adverse Reactions: 3 Allergy/AdvReac Type Severity Reaction Status Date / Time ketorolac [From Toradol] Allergy Severe FACIAL Verified 10/21/17 02:27 SWELLING diphenhydramine AdvReac Intermediate CRAWLING Verified 10/21/17 02:27 [From Benadryl] SKIN Date of admission: 10/20/17 23:06 Primary care physician: Opal Givens DO Consults: 10/20/17 23:09 Consult to Occupational Therapy [CONS] Routine Comment: Evaluate, develop and implement POC Reason for Consult: ambulate and assess Consult to Physical Therapy [CONS] Routine Comment: Evaluate, develop and implement POC Reason for Consult: ambulate assess for placement need 10/21/17 00:24 Consult to Vulcanizer Operator [CONS] Routine Reason for SW Consult: POSS DISCHARGE PLANNING, PT OT CONSULTED Discharging clinician: Arlen Kincaid Anticipated date of discharge: 10/23/17 - Patient Status Disposition: Home, Self-Care Condition: Good Functional capacity at discharge: independent ambulation Overall status at discharge: patient is progressing back to baseline - Discharge Instructions Follow Up With: Opal Givens DO [Primary Care Provider] - Additional Instructions: Follow-up with primary care in the next 7 to 10 days for recheck. Follow up with pain management as scheduled. Return to the ER as needed. Resume her normal medications, diet, activity as tolerated. I have called in prescriptions for your antibiotic, steroid taper, and Mucinex to [facility]. He may pickle pumper this evening or first thing in the morning. Take her medications as directed. Make sure you are drinking plenty of fluid. - Diet and Activity Activity: increase activity as tolerated Diet: advance to your usual diet Hospital course: Ms. Crawford is a 52 year old female with past medical history of COPD, pneumonia , hypertension, anxiety, hyperlipidemia, diabetes. Patient was admitted for exacerbation of COPD improved. She is no longer in any respiratory distress is back to her baseline O2 demand. She will be sent home with prescriptions for antibiotics, steroid taper, Mucinex. Patient has mild leukocytosis today, most likely due to IV steroid use. Her vitals and other labs are stable and within normal limits. P patient is appropriate for discharge - Time Spent with Patient Total time spent providing and/or coordinating discharge services: Less than 30 minutes - Constitutional Vitals: Temp Pulse Resp BP Pulse Ox 98.6 F 84 17 124/75 95 10/23/17 11:44 10/23/17 11:44 10/23/17 11:44 10/23/17 11:44 10/23/17 11:44 General appearance: Present: cooperative, A&O X 3, pleasant, no acute distress, answers questions appropriately - Head Head exam: Present: atraumatic, normal inspection, normocephalic - Eye Eye exam: Present: normal appearance, conjuntiva pink, sclera anicteric - Neck Neck exam general surgery: Present: supple, trachea midline. Absent: lymphadenopathy, tenderness - Respiratory Respiratory exam: Present: decreased breath sounds, CTAB. Absent: accessory muscle use, chest wall tenderness, rales, rhonchi, wheezes - Cardiovascular Cardiovascular exam: Present: RRR, +S1, +S2. Absent: diastolic murmur, gallop, rubs, systolic murmur - GI/Abdominal GI/Abdominal exam: Present: normal bowel sounds, soft. Absent: distended, tenderness - Extremities Exam Extremities exam: Present: normal capillary refill, warm, radial pulses palpable and symmetrical. Absent: calf tenderness, cyanotic, pedal edema, tenderness - Neurological Exam Neurological exam: Present: alert, oriented X3, no focal deficits. Absent: facial droop, speech deficit - Skin Skin exam: Present: dry, intact, normal color, warm. Absent: rash
[2017-10-23 15:37] VITALS: BP 129/83
== END 2017-10-23 16:30 | disposition home or self-care (01) | DRG 140 ==
LOC: EMEROO 20:10 → 3BNU 20:10 → SUATTDRO 23:06 → 3BNU 23:48
PROVIDERS: ADMIT Internal Medicine Hematology & Oncology; ATTEND Internal Medicine

== ENCOUNTER 2017-11-20 04:39 | Observation (INO) ==
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
[2017-11-20 05:13] LABS: Amphetamine Screen,Urine Negative ng/mL (Cutoff=1000); Barbiturate Screen,Urine Negative ng/mL (Cutoff=200); Benzodiazepines Screen,Urine Negative ng/mL (Cutoff=200); Cannabinoid Screen,Urine Positive ng/mL (Cutoff = 50); Cocaine Screen,Urine Negative ng/mL (Cutoff= 300); Opiate Screen,Urine Negative ng/mL (Cutoff=300); Phencyclidine Screen,Urine Negative ng/mL (Cutoff=25)
[2017-11-20 05:15] LABS: Bilirubin,Urine Negative (Negative); Blood,Urine Small (Negative); Clarity,Urine Clear (Clear); Color,Urine Yellow (Yellow); Glucose,Urine (UA) Normal (Normal); Ketones,Urine Negative (Negative); Leukocyte Esterase,Urine Negative (Negative); Nitrite,Urine Negative (Negative); PH,Urine 6.5 pH Units (5.0-8.0); Protein,Urine 100 mg/dL (Neg-Trace); Specific Gravity,Urine 1.015 (1.010-1.025); Urobilinogen,Urine Normal (Normal)
[2017-11-20 05:19] LABS: Bacteria,Urine None Seen per hpf (None-Few); Hyaline Casts,Urine None Seen per lpf (None-Few); Squamous Epithelial Cell,Urine Few per lpf (None-Few); WBC,Urine 0-3 per hpf (0-3)
[2017-11-20 05:33] LABS: Basophils % 0.3 %; Eosinophils # 0.2 K/mcL (0.0-0.6); Eosinophils % 1.3 %; Hematocrit 35.7 % (35.3-44.9); Hemoglobin 11.5 g/dL (11.5-15.4); Immature Granulocytes % 0.3 % (0-4); Immature Platelets 4.3 % (1.1-6.1); Lymphocytes # 3.5 K/mcL (0.6-4.6); Lymphocytes % 23.4 %; Mean Corpuscular HGB Conc 32.2 g/dL (31.6-35.5); Mean Corpuscular Hemoglobin 28.3 pg (28.0-33.3); Mean Corpuscular Volume 87.7 fL (83.0-100.0); Mean Platelet Volume 10.3 fL (9.4-12.4); Monocytes # 1.1 K/mcL (0.0-1.3); Monocytes % 7.5 %; Platelet Count 266 K/mcL (140-400); Red Blood Count 4.07 M/mcL (3.82-4.97); Red Cell Distribution Width 16.2 % (11.5-14.5); Segmented Neutrophils % 67.2 %
[2017-11-20 05:43] LABS: Acetaminophen < 1.0 mcg/mL (10-30); Ethanol < 10 mg/dL (0-10); Salicylate < 5.0 mg/dL (15.0-30.0)
[2017-11-20] MEDS ORDERED: Ibuprofen 600 MG TABLET PO ONE (05:43)
[2017-11-20 05:45] LABS: BUN/Creatinine Ratio 37 (6-26); Blood Urea Nitrogen 19 mg/dL (6-20); Calcium 9.4 mg/dL (8.6-10.3); Carbon Dioxide 22 mEq/L (23-29); Chloride 107 mEq/L (98-107); Glucose 105 mg/dL (70-105); Osmolality,Calculated 283 (280-300); Potassium 3.9 mEq/L (3.5-5.1); Sodium 135 mEq/L (136-145); eGFR For African Americans > 60 (> 60); eGFR For Non-African Americans > 60 (> 60)
[2017-11-20 06:00] LABS: Thyroid Stimulating Hormone 1.436 mcIU/mL (0.340-5.600)
--- NOTE | 2017-11-20 07:39 | Emergency Department Note ---
Disposition Clinical Impression: Hallucination Disposition: Admitted As Inpatient Condition: Fair Referrals: NONE,PCP [Primary Care Provider] - Forms: ED Satisfaction Letter Time of Disposition: 07:38 General Adult HPI - General Chief complaint: ED Psychiatric Symptoms Stated complaint: hallucinations Time Seen by Provider: 11/20/17 04:50 Source: patient, EMS Mode of arrival: EMS Limitations: no limitations Nursing Notes Reviewed: Yes Vital Signs Reviewed: Yes - History of Present Illness Pain Scale: 10 - Related Data Home Medications Medication Instructions Recorded Confirmed Butalb/Acetaminophen/Caffeine 1 cap PO Q4H PRN 07/19/17 10/21/17 [Fioricet 50-300-40 mg Capsule] Ipratropium/Albuterol Neb [Duoneb] 3 ml IH Q6HR PRN 07/19/17 10/21/17 Lisinopril [Zestril] 40 mg PO DAILY 07/19/17 10/21/17 Metformin HCl [Glucophage] 1,000 mg PO DAILY 07/19/17 10/21/17 Nitroglycerin [Nitrostat] 0.6 mg SL Q5M PRN 07/19/17 10/21/17 Promethazine [Phenergan] 25 - 50 mg PO Q6HR PRN 07/19/17 10/21/17 Ranitidine HCl [Acid Aerial Crop Duster] 150 mg PO BID 07/19/17 10/21/17 Atorvastatin [Lipitor] 40 mg PO HS 10/21/17 10/21/17 Gabapentin [Neurontin] 600 mg PO TID 10/21/17 10/21/17 Previous Rx's Medication Instructions Recorded Budesonide/Formoterol 160/4.5 2 puff IH BIDR #2 inhaler 07/25/17 [Symbicort 160/4.5] Montelukast [Singulair] 10 mg PO HS #30 tablet 07/25/17 Nicotine Patch [Nicoderm] 14 mg TD DAILY #14 patch.td24 07/25/17 Azithromycin [Zithromax] 250 mg PO Q24H #5 tablet 10/23/17 GuaiFENesin ER [Mucinex] 600 mg PO BID PRN #30 tbbp.12hr 10/23/17 predniSONE [PredniSONE] 10 mg PO DAILY #33 tablet 10/23/17 Allergies Allergy/AdvReac Type Severity Reaction Status Date / Time ketorolac [From Toradol] Allergy Severe FACIAL Verified 10/21/17 02:27 SWELLING diphenhydramine AdvReac Intermediate CRAWLING Verified 10/21/17 02:27 [From Benadryl] SKIN Past Medical History - Past Medical History Medical history: Reports: COPD, diabetes, hyperlipidemia, hypertension, migraine , other Surgical history: Reports: no surgical history Psychiatric history: Reports: anxiety, depression - Social History Smoking Status: Current every day smoker Smokeless Tobacco Status: No Alcohol use: Reports: none Drug use: Reports: marijuana, prescription drug abuse Physical Exam - General Limitations: no limitations General appearance: alert, in no apparent distress Course - Reevaluation(s) Reevaluation #1: Patient signed out pending admission to the hospitalist and call back. Discussed with Dr. Kothari at 35. Patient accepted to medicine service. Time: 07:38 Vital Signs Temperature 97.8 F 11/20/17 04:41 Pulse Rate 79 11/20/17 04:41 Respiratory Rate 16 11/20/17 04:41 Blood Pressure 154/99 11/20/17 04:41 O2 Sat by Pulse Oximetry 97 11/20/17 04:41 Temperature 97.8 F 11/20/17 04:41 Pulse Rate 79 11/20/17 04:41 Respiratory Rate 16 11/20/17 04:41 Blood Pressure 154/99 11/20/17 04:41 O2 Sat by Pulse Oximetry 97 11/20/17 04:41 Oxygen Delivery Oxygen Delivery Room Air Medical Decision Making - Lab Data Result diagrams: 11/20/17 05:21 11/20/17 05:21 Lab Results 11/20/17 11/20/17 11/20/17 Range/Units 05:00 05:00 05:00 WBC (4.3-11.1) K/mcL RBC (3.82-4.97) M/mcL Hgb (11.5-15.4) g/dL Hct (35.3-44.9) % MCV (83.0-100.0) fL MCH (28.0-33.3) pg MCHC (31.6-35.5) g/dL RDW (11.5-14.5) % Plt Count (140-400) K/mcL MPV (9.4-12.4) fL Immature Gran % (0-4) % Seg Neutrophils % % Lymphocytes % % Monocytes % % Eosinophils % % Basophils % % Neutrophils # (1.6-8.9) K/mcL Lymphocytes # (0.6-4.6) K/mcL Monocytes # (0.0-1.3) K/mcL Eosinophils # (0.0-0.6) K/mcL Basophils # (0.0-0.2) K/mcL Immature Plt Fraction (1.1-6.1) % Sodium (136-145) mEq/L Potassium (3.5-5.1) mEq/L Chloride (98-107) mEq/L Carbon Dioxide (23-29) mEq/L BUN (6-20) mg/dL Creatinine (0.60-1.20) mg/dL Est GFR ( Amer) (> 60) Est GFR (Non-Af Amer) (> 60) BUN/Creatinine Ratio (6-26) Glucose (70-105) mg/dL Calculated Osmolality (280-300) Calcium (8.6-10.3) mg/dL TSH (0.340-5.600) mcIU/mL Urine Color Yellow (Yellow) Urine Clarity Clear (Clear) Urine pH 6.5 (5.0-8.0) pH Units Ur Specific [place] 1.015 (1.010-1.025) Urine Protein 100 H (Neg-Trace) mg/dL Urine Glucose (UA) Normal (Normal) mg/dL Urine Ketones Negative (Negative) mg/dL Urine Blood Small H (Negative) Urine Nitrite Negative (Negative) Urine Bilirubin Negative (Negative) Urine Urobilinogen Normal (Normal) mg/dL Ur Leukocyte Esterase Negative (Negative) Urine Microscopic RBC 3-5 H (0-3) per hpf Urine Microscopic WBC 0-3 (0-3) per hpf Ur Squamous Epith Cells Few (None-Few) per lpf Urine Bacteria None Seen (None-Few) per hpf Hyaline Casts None Seen (None-Few) per lpf Urine Test Negative (Negative) Salicylates (15.0-30.0) mg/dL Urine Opiates Screen Negative (Hpmfdd=059) ng/mL Acetaminophen (10-30) mcg/mL Ur Barbiturates Screen Negative (Frfhwj=241) ng/mL Ur Phencyclidine Scrn Negative (Cutoff=25) ng/mL Ur Amphetamines Screen Negative (Vhvejw=4341) ng/mL U Benzodiazepines Scrn Negative (Ismcat=925) ng/mL Urine Cocaine Screen Negative (Cutoff= 300) ng/mL U Marijuana (THC) Screen Positive H (Cutoff = 50) ng/mL Ethyl Alcohol (0-10) mg/dL 11/20/17 11/20/17 Range/Units 05:21 05:21 WBC 14.9 H (4.3-11.1) K/mcL RBC 4.07 (3.82-4.97) M/mcL Hgb 11.5 (11.5-15.4) g/dL Hct 35.7 (35.3-44.9) % MCV 87.7 (83.0-100.0) fL MCH 28.3 (28.0-33.3) pg MCHC 32.2 (31.6-35.5) g/dL RDW 16.2 H (11.5-14.5) % Plt Count 266 (140-400) K/mcL MPV 10.3 (9.4-12.4) fL Immature Gran % 0.3 (0-4) % Seg Neutrophils % 67.2 % Lymphocytes % 23.4 % Monocytes % 7.5 % Eosinophils % 1.3 % Basophils % 0.3 % Neutrophils # 10.0 H (1.6-8.9) K/mcL Lymphocytes # 3.5 (0.6-4.6) K/mcL Monocytes # 1.1 (0.0-1.3) K/mcL Eosinophils # 0.2 (0.0-0.6) K/mcL Basophils # 0.0 (0.0-0.2) K/mcL Immature Plt Fraction 4.3 (1.1-6.1) % Sodium 135 L (136-145) mEq/L Potassium 3.9 (3.5-5.1) mEq/L Chloride 107 (98-107) mEq/L Carbon Dioxide 22 L (23-29) mEq/L BUN 19 (6-20) mg/dL Creatinine 0.52 L (0.60-1.20) mg/dL Est GFR ( Amer) > 60 (> 60) Est GFR (Non-Af Amer) > 60 (> 60) BUN/Creatinine Ratio 37 H (6-26) Glucose 105 (70-105) mg/dL Calculated Osmolality 283 (280-300) Calcium 9.4 (8.6-10.3) mg/dL TSH 1.436 (0.340-5.600) mcIU/mL Urine Color (Yellow) Urine Clarity (Clear) Urine pH (5.0-8.0) pH Units Ur Specific [place] (1.010-1.025) Urine Protein (Neg-Trace) mg/dL Urine Glucose (UA) (Normal) mg/dL Urine Ketones (Negative) mg/dL Urine Blood (Negative) Urine Nitrite (Negative) Urine Bilirubin (Negative) Urine Urobilinogen (Normal) mg/dL Ur Leukocyte Esterase (Negative) Urine Microscopic RBC (0-3) per hpf Urine Microscopic WBC (0-3) per hpf Ur Squamous Epith Cells (None-Few) per lpf Urine Bacteria (None-Few) per hpf Hyaline Casts (None-Few) per lpf Urine Test (Negative) Salicylates < 5.0 L (15.0-30.0) mg/dL Urine Opiates Screen (Zstbyj=778) ng/mL Acetaminophen < 1.0 L (10-30) mcg/mL Ur Barbiturates Screen (Ifgjbs=717) ng/mL Ur Phencyclidine Scrn (Cutoff=25) ng/mL Ur Amphetamines Screen (Wunyhr=6750) ng/mL U Benzodiazepines Scrn (Geqpza=098) ng/mL Urine Cocaine Screen (Cutoff= 300) ng/mL U Marijuana (THC) Screen (Cutoff = 50) ng/mL Ethyl Alcohol < 10 (0-10) mg/dL
[2017-11-20] MEDS ORDERED: Acetaminophen 325 MG TABLET PO PRN (10:38)
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
[2017-11-20] MEDS: Insulin LISPRO 300 UNITS/3 ML VIAL SQ SCH ×2 (12:47→18:04)
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
[2017-11-20] MEDS: Gabapentin 300 MG CAPSULE PO SCH ×2 (15:59→20:26)
[2017-11-20] MEDS ORDERED: *HR* Morphine 2 MG/ML SYRINGE IVP ONE (19:01)
[2017-11-20] MEDS ORDERED: *HR* HYDROcodone/Acet 5/325 mg TABLET PO PRN (19:11)
[2017-11-20] MEDS: Budesonide/Formoterol 160/4.5 MDI IH SCH (20:34)
[2017-11-20] MEDS: Ipratropium/Albuterol Neb 3 ML IH PRN (20:35)
[2017-11-20] MEDS ORDERED: Famotidine 20 MG TABLET PO SCH (21:00)
[2017-11-20] MEDS ORDERED: traMADol 50 MG TABLET PO ONE (21:58)
[2017-11-20] MEDS: Acetaminophen/Butalbital/CaffeineTABLET PO PRN (23:07)
[2017-11-21] MEDS ORDERED: Ibuprofen 800 MG TABLET PO ONE (02:22)
[2017-11-21] MEDS: Acetaminophen/Butalbital/CaffeineTABLET PO PRN (04:44)
[2017-11-21 07:50] VITALS: BP 151/87
[2017-11-21] MEDS: Budesonide/Formoterol 160/4.5 MDI IH SCH (07:50)
[2017-11-21] MEDS: Ipratropium/Albuterol Neb 3 ML IH PRN (07:50)
[2017-11-21] MEDS ORDERED: Naloxone 0.4 MG/ML INJ IVP ONE (08:20)
[2017-11-21 08:22] LABS: Basophils % 0.3 %; Eosinophils # 0.4 K/mcL (0.0-0.6); Eosinophils % 3.3 %; Hematocrit 38.1 % (35.3-44.9); Hemoglobin 12.1 g/dL (11.5-15.4); Immature Granulocytes % 0.3 % (0-4); Lymphocytes % 28.2 %; Mean Corpuscular HGB Conc 31.8 g/dL (31.6-35.5); Mean Corpuscular Hemoglobin 27.8 pg (28.0-33.3); Mean Corpuscular Volume 87.6 fL (83.0-100.0); Mean Platelet Volume 9.9 fL (9.4-12.4); Monocytes # 0.9 K/mcL (0.0-1.3); Monocytes % 8.7 %; Neutrophils # 6.3 K/mcL (1.6-8.9); Platelet Count 310 K/mcL (140-400); Red Blood Count 4.35 M/mcL (3.82-4.97); Red Cell Distribution Width 16.2 % (11.5-14.5); Segmented Neutrophils % 59.2 %
[2017-11-21] MEDS ORDERED: Naloxone 0.4 MG/ML INJ ONE (08:35)
[2017-11-21] MEDS: Insulin LISPRO 300 UNITS/3 ML VIAL SQ SCH (08:39)
[2017-11-21 08:42] LABS: BUN/Creatinine Ratio 18 (6-26); Blood Urea Nitrogen 11 mg/dL (6-20); Calcium 8.9 mg/dL (8.6-10.3); Carbon Dioxide 28 mEq/L (23-29); Chloride 105 mEq/L (98-107); Glucose 94 mg/dL (70-105); Osmolality,Calculated 281 (280-300); Potassium 4.4 mEq/L (3.5-5.1); Sodium 136 mEq/L (136-145); eGFR For African Americans > 60 (> 60); eGFR For Non-African Americans > 60 (> 60)
--- NOTE | 2017-11-21 08:54 | Event Note ---
Date of Encounter: 11/21/17 Time of Encounter: 08:44 I was asking to see the patient who wants to leave AMA, but she was falling asleep after conversation. Staff is concerned for the patient was using the drug. Patient was admitted for hallucination, psychiatrist was consulted, they signed off On my examination, patient is alert, and oriented to 3. she is up walking with steady gait. She understands the risk of when the medical workup was not completed. She said her son who is 35 yo will come to bean picker machine operator her. She will call 911 if she developes headache, fever. She will come back to emergency room for help. On examining she does have bilateral construct to pupils were demonstrated 0.4 mg Narcan. After Narcan she has been staying awake, walking in the ortiz. Patient has capacity to make decision, instructed nurse to await for her son to bean picker machine operator.
[2017-11-21] MEDS ORDERED: hydroCHLOROthiazide 25 MG TABLET PO SCH (09:00)
[2017-11-21] MEDS ORDERED: predniSONE 10 MG TABLET PO SCH (09:00)
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
== END 2017-11-21 09:54 | disposition left against medical advice (07) ==
LOC: 2SOUTHHOLD 04:39 → EMEROO 04:39 → 2SOUTHHOLD 10:45 → 3BNU 15:14
PROVIDERS: ADMIT Hospitalist; ATTEND Registered Nurse

== ENCOUNTER 2018-07-14 21:33 | Observation (INO) ==
[2018-07-14] MEDS ORDERED: Ipratropium/Albuterol Neb 3 ML IH ONE (21:50)
[2018-07-14 22:23] LABS: Basophils % 0.2 %; Eosinophils % 0.3 %; Hematocrit 40.3 % (35.3-44.9); Hemoglobin 12.7 g/dL (11.5-15.4); Immature Granulocytes % 0.3 % (0-4); Lymphocytes # 2.7 K/mcL (0.6-4.6); Lymphocytes % 29.7 %; Mean Corpuscular HGB Conc 31.5 g/dL (31.6-35.5); Mean Corpuscular Hemoglobin 25.3 pg (28.0-33.3); Mean Corpuscular Volume 80.3 fL (83.0-100.0); Mean Platelet Volume 9.4 fL (9.4-12.4); Monocytes # 0.6 K/mcL (0.0-1.3); Monocytes % 6.4 %; Neutrophils # 5.7 K/mcL (1.6-8.9); Platelet Count 315 K/mcL (140-400); Red Blood Count 5.02 M/mcL (3.82-4.97); Red Cell Distribution Width 21.2 % (11.5-14.5); Segmented Neutrophils % 63.1 %
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
[2018-07-14 22:49] LABS: BUN/Creatinine Ratio 15 (6-26); Blood Urea Nitrogen 9 mg/dL (6-20); Calcium 8.9 mg/dL (8.6-10.3); Carbon Dioxide 18 mEq/L (23-29); Chloride 107 mEq/L (98-107); Glucose 78 mg/dL (70-105); Osmolality,Calculated 284 (280-300); Potassium 3.7 mEq/L (3.5-5.1); Sodium 138 mEq/L (136-145); eGFR For Non-African Americans > 60 (> 60)
[2018-07-14 22:51] LABS: Troponin I < 0.03 ng/mL (< 0.04)
[2018-07-14] MEDS: predniSONE 20 MG TABLET PO ONE (23:02)
[2018-07-15] MEDS: predniSONE 20 MG TABLET PO ONE (01:39)
[2018-07-15 02:01] LABS: Acetaminophen < 10 mcg/mL (10-20); Ethanol < 10 mg/dL (Less than 10); Salicylate < 2.5 mg/dL (15.0-30.0)
[2018-07-15] MEDS ORDERED: Albuterol 2.5 MG/3 ML NEBULIZER IH PRN (05:02)
[2018-07-15] MEDS ORDERED: traMADol 50 MG TABLET PO PRN ×2 (05:23→07:56)
[2018-07-15] MEDS: Ondansetron 4 MG/2 ML VIAL IVP PRN ×2 (05:36→11:50)
[2018-07-15] MEDS: Ipratropium/Albuterol Neb 3 ML IH SCH ×4 (07:10→19:42)
[2018-07-15] MEDS ORDERED: Acetaminophen 325 MG TABLET PO PRN (07:56)
[2018-07-15] MEDS ORDERED: Naloxone 0.4 MG/ML INJ IVP PRN (07:56)
--- NOTE | 2018-07-15 08:10 | Internal Med History&Physical ---
Date of Encounter: 07/15/18 Time of Encounter: 08:06 Internal Medicine - H&P: HPI History of present illness: Ms. Crawford is a 53 year old female with history of COPD on 2 L NC, DM, hypertension, migraines, hyperlipidemia prsented to ED after neighbor called EMS. Patient was having worsening shortness of breath for past 5 days. Her dog chewed her oxygen tank and patient has been doing worse since then. She was diagnosed with pneumonia as outpatient and treated with antibiotics but she does not feel like she is improving. She reports productive cough, fevers/ chills, n/v, diarrhea, leg pain. Denies chest pain, numbness/tingling (other than lower extremities/diabetic foot neuropathy). In the ED patient had chest x -ray which was negative. CBC and BMP were unremarkable. Be became very emotional and told the ED physician that she would like to kill herself. Questionable about her mental status, a CT of head was done that was negative for acute process. She currently admits to suicidal ideation but does not have an active plan. She has no homicidal ideations. She lives at home alone. Past Med Surg Social Fam HX - Past Medical History Medical history: COPD, diabetes, hyperlipidemia, hypertension, migraine, other Additional medical history: pt unable to provide much hx Psychiatric history: depression - Past Surgical History Surgical History: no surgical history - Social History Smoking Status: Current every day smoker Smokeless Tobacco Status: No Alcohol use: none Drug use: none - Family History Father Family Member Ethnicity: Non- Living Status: Mother Family Member Ethnicity: Non- Living Status: Hx Family Cardiac Disorders: Yes (PA, Stroke) Hx Family Cancer: Yes (Breast cancer) Hx Family Endocrine Disorder: Yes (DM) Brother Family Member Ethnicity: Non- Living Status: Still Living Sister Family Member Ethnicity: Non- Living Status: Still Living Hx Family Cancer: Yes (Cervical cancer) Internal Medicine - H&P: Meds Butalb/Acetaminophen/Caffeine [Fioricet 50-300-40 mg Capsule] 1 cap PO Q4H PRN 07/19/17 [History] Ipratropium/Albuterol Neb [Duoneb] 3 ml IH Q6HR PRN 07/19/17 [History] Metformin HCl [Glucophage] 1,000 mg PO DAILY 07/19/17 [History] Nitroglycerin [Nitrostat] 0.6 mg SL Q5M PRN 07/19/17 [History] Promethazine [Phenergan] 25 - 50 mg PO Q6HR PRN 07/19/17 [History] Ranitidine HCl [Acid Low Pressure Firer] 150 mg PO BID 07/19/17 [History] Budesonide/Formoterol 160/4.5 [Symbicort 160/4.5] 2 puff IH BIDR #2 inhaler [Rx] Atorvastatin [Lipitor] 40 mg PO HS 10/21/17 [History] Gabapentin [Neurontin] 900 mg PO TID 11/20/17 [History] 3 Allergy/AdvReac Type Severity Reaction Status Date / Time ketorolac [From Toradol] Allergy Severe FACIAL Verified 11/20/17 10:07 SWELLING prednisone Allergy Back Pain Verified 07/14/18 23:07 diphenhydramine AdvReac Intermediate CRAWLING Verified 11/20/17 10:07 [From Benadryl] SKIN morphine AdvReac Nausea Verified 11/21/17 09:45 All Systems PM: A 10-system review of systems was performed and is negative for pertinent findings except as documented above in the HPI. Review of systems: As per HPI - Constitutional Vitals: Temp Pulse Resp BP Pulse Ox 98.8 F 80 19 116/80 99 07/15/18 04:00 07/15/18 04:00 07/15/18 07:13 07/15/18 04:00 07/15/18 07:13 Exam: AAO x3. Appears depressed. No acute distress. - Head Head exam: Present: atraumatic, normocephalic - Eye Eye exam: Present: PERRL, conjuntiva pink, sclera anicteric Pupils: Present: PERRL - Neck Neck exam general surgery: Present: supple, trachea midline. Absent: lymphadenopathy - Respiratory Respiratory exam: Present: decreased breath sounds, wheezes. Absent: accessory muscle use, rales, rhonchi - Cardiovascular Cardiovascular exam: Present: RRR, +S1, +S2. Absent: diastolic murmur, gallop, rubs, systolic murmur - GI/Abdominal GI/Abdominal exam: Present: normal bowel sounds, soft, no peritoneal signs. Absent: distended, tenderness - Extremities Exam Extremities exam: Present: warm, radial pulses palpable and symmetrical. Absent : calf tenderness, cyanotic, pedal edema - Neurological Exam Neurological exam: Present: CN II-XII intact, oriented X3, no focal deficits. Absent: pronater drift, facial droop, speech deficit - Skin Skin exam: Present: dry, intact Internal Med - H&P Results - Labs CBC & Chem 7: 07/14/18 22:14 07/14/18 22:14 - Impressions ITS Impressions Head CT 07/15/18 23:47 IMPRESSION: No acute intracranial abnormality. D/ / Sumeet Hopson MD / Sumeet Hopson MD Interpreting Provider: Sumeet Hopson MD - Assessment and plan (1) COPD with acute exacerbation Current Visit: No Status: Acute Assessment and plan: Continue scheduled Duo Nebs Complains of cough with sputum production - Continue Duo Nebs - Increase O2 if needed and wean as tolerated - Solu Medrol. Reports allergy to Prednisone is gets anxious. We discussed side effects of steroid therapy. She understands. Likely she will need Prednisone taper on DC and she tolerated dose in ED fine. - Continue prophylactic antibiotics. Chest x-ray in ED was negative for pneumonia. Await procalcitonin, if negative or she remains afebrile, then DC antibiotics. (2) Suicidal ideation Current Visit: Yes Status: Acute Assessment and plan: Psychiatry consulted. (3) Weakness Current Visit: Yes Status: Acute Assessment and plan: PT/OT consulted. She does not appear safe to go home at this moment. (4) Anxiety Current Visit: No Status: Acute Assessment and plan: Resume home medication once med rec completed. (5) Major depressive disorder, recurrent Current Visit: No Status: Acute Assessment and plan: Resume home medications, psychiatry evaluation pending. Qualifiers: Active/Remission status: currently active Major depression episode severity : mild Qualified Code(s): F33.0 - Major depressive disorder, recurrent, mild (6) Substance abuse Current Visit: No Status: Acute Assessment and plan: Urine drug screen pending. (7) Diabetes Current Visit: No Status: Chronic Assessment and plan: ISS, diabetic diet. 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 For now will place hydralazine IV prn. Qualifiers: Hypertension type: essential hypertension Qualified Code(s): I10 - Essential (primary) hypertension (10) Migraine Current Visit: No Status: Chronic Assessment and plan: No acute issues. Qualifiers: Migraine type: unspecified Status migrainosus presence: without status migrainosus Intractability: not intractable Qualified Code(s): G43.909 - Migraine, unspecified, not intractable, without status migrainosus (11) DVT prophylaxis Current Visit: No Status: Acute Assessment and plan: Heparin SQ - Time Spent With Patient Total time spent is greater than 50% in coordination of care (as documented) at patient's floor/unit and/or counseling patient:
[2018-07-15] MEDS: Insulin LISPRO 300 UNITS/3 ML VIAL SQ SCH ×3 (10:34→17:22)
[2018-07-15] MEDS: Doxycycline 100 MG CAPSULE PO SCH ×2 (10:42→20:26)
[2018-07-15 11:08] LABS: Adenovirus Not Detected (Not Detect); Bordetella Pertussis Not Detected (Not Detect); Chlamydophila pneumoniae Not Detected (Not Detect); Coronavirus 229E Not Detected (Not Detect); Coronavirus HKU1 Not Detected (Not Detect); Coronavirus NL63 Not Detected (Not Detect); Coronavirus OC43 Not Detected (Not Detect); Human Metapneumovirus Not Detected (Not Detect); Human Rhinovirus/Enterovirus Not Detected (Not Detect); Influenza A Subtype 2009 H1 Not Detected (Not Detect); Influenza A Untypeable Not Detected (Not Detect); Influenza B Not Detected (Not Detect); Mycoplasma pneumoniae Not Detected (Not Detect); Parainfluenza Virus 1 Not Detected (Not Detect); Parainfluenza Virus 2 Not Detected (Not Detect); Parainfluenza Virus 3 Not Detected (Not Detect); Parainfluenza Virus 4 Not Detected (Not Detect); Respiratory Syncytial Virus Not Detected (Not Detect)
[2018-07-15] MEDS: *HR* HYDROcodone/Acet 5/325 mg TABLET PO PRN ×2 (11:49→17:53)
[2018-07-15] MEDS: methylPREDNISolone 125 MG/2 ML VIAL IVP SCH ×2 (17:22→17:26)
--- NOTE | 2018-07-15 17:25 | Consult Note ---
Date of Encounter: 07/15/18 Time of Encounter: 16:00 Assessment & Recommendation (1) Mood disorder due to known physiological condition with depressive features Current visit: Yes Status: Acute History of Present Illness Patient: known to practice within the last 3 years Requesting Physician: Choco Chang MD Reason for consult: SI, on pink slip History of present illness: Ms. Crawford is a 53 year old female the patient is a 53-year chief complaint: I did say I might as well stop using my oxygen. But I am not suicidal. History of present illness: This patient has been seen previously by psychiatry consultation team and previously was given a diagnosis of major depression. Today the patient is on a pink slip and has a sitter. This is to evaluate the possibility of suicidal ideation. The patient was in her usual state of health and mood she has bad COPD. She was at home her dog chewed through her tubing and she developed shortness of breath she called the squad. She is brought to the hospital and she says that in her desperation C said I might as well stop using my oxygen. In the past the patient was diagnosed with depression she was prescribed antidepressant medicines but never got them felt she was worried about how much that would cost. The patient says that she has good mood her self-esteem is high her interests decide she reports no guilt she does worry about her bills and worries about her health when money is tight her energy is low or concentration is good her appetite is good she reports no significant weight loss. She has been in a low weight for a long time. She gets limited exercise but she does go to [employer] twice a week she notes sleep is good and no suicidal ideation. The patient looks forward to seeing her grandkids and she loves sports that they play. She has a lot of interest. The patient has a dog and lives in an apartment with her dog and she feels the dog is been most helpful to her. She has been away from her dog for 36 hours. In the past the patient was felt to have auditory hallucinations and visual hallucinations the patient can recall that time when she had pneumonia she did see her dog there but was pointed out that her dog could not be there is dogs all of the hospital. The patient later recognized that this was a hallucination or her imagination. The patient has had several CAT scans some showing mild chronic cerebrovascular disease. The MRI showed white matter small vessel disease. The patient has no significant past psychiatric history no alcohol or drug abuse. Past medical history surgeries tubal ligation illnesses COPD back pain. Patient is scared of morphine and told people that she was allergic to it. Other allergies and adverse reactions are listed. She is on no psychiatric medicines. Family history psychiatric history is negative for suicide except in her sister' s son he was in shelter and hung himself. Alcohol none. Her son had a drug abuse problem but the patient found out too late and her son in an overdose. Social history the patient lives in [facility]. She is been for 8 months her had not drank for a while indirect from cirrhosis of the liver but after being exposed morphine according to the patient. The patient lives by herself and has a dog. She attends [employer] both on Sundays and Wednesdays and has prayed with her shop tech about her losses. She enjoys her life and would like to get back part. Review of systems reveals that she is thin and eating well and would like to go home. CC: Choco Chang MD Past Med Surg Social [facility] HX - Past Medical History Source: patient Medical history: COPD, diabetes, hyperlipidemia, hypertension, migraine, other - Past Psychiatric History Psychiatric history: Reports: depression Family psychiatric history: No Family History of Suicide: Completed - Past Surgical History Surgical History: no surgical history - Social History Smoking Status: Current every day smoker Smokeless Tobacco Status: No Alcohol use: none Drug use: none Occupational status: disabled Current living situation: Home - Independent Activity Level: Independent ambulation Recent Out of Country Travel Within the Last 8 Weeks: No Exposure or Possible Exposure to Illness During Travel: No - Family History Father Family Member Ethnicity: Non- Living Status: Mother Family Member Ethnicity: Non- Living Status: Hx Family Cardiac Disorders: Yes (IA, Stroke) Hx Family Cancer: Yes (Breast cancer) Hx Family Endocrine Disorder: Yes (DM) Brother Family Member Ethnicity: Non- Living Status: Still Living Sister Family Member Ethnicity: Non- Living Status: Still Living Hx Family Cancer: Yes (Cervical cancer) Medications & Allergies Butalb/Acetaminophen/Caffeine [Fioricet 50-300-40 mg Capsule] 1 cap PO Q4H PRN 07/19/17 [History] Ipratropium/Albuterol Neb [Duoneb] 3 ml IH Q6HR PRN 07/19/17 [History] Metformin HCl [Glucophage] 1,000 mg PO DAILY 07/19/17 [History] Nitroglycerin [Nitrostat] 0.6 mg SL Q5M PRN 07/19/17 [History] Promethazine [Phenergan] 25 - 50 mg PO Q6HR PRN 07/19/17 [History] Ranitidine HCl [Acid [employer] System Operator] 150 mg PO HS 07/19/17 [History] Budesonide/Formoterol 160/4.5 [Symbicort 160/4.5] 2 puff IH BIDR #2 inhaler [Rx] Gabapentin [Neurontin] 900 mg PO TID 11/20/17 [History] Albuterol Sulfate [Ventolin Hfa] 2 puff IH Q6H PRN 07/15/18 [History] Lisinopril [Zestril] 40 mg PO DAILY 07/15/18 [History] 3 Allergy/AdvReac Type Severity Reaction Status Date / Time ketorolac [From Toradol] Allergy Severe FACIAL Verified 11/20/17 10:07 SWELLING prednisone Allergy Back Pain Verified 07/14/18 23:07 diphenhydramine AdvReac Intermediate CRAWLING Verified 11/20/17 10:07 [From Benadryl] SKIN morphine AdvReac Nausea Verified 11/21/17 09:45 Review of Systems Respiratory: Reports: cough, dyspnea, other Psychiatric: Reports: other Psychiatry Exam - Constitutional Vitals: Temp Pulse Resp BP Pulse Ox 97.8 F 78 14 137/89 98 07/15/18 11:48 07/15/18 11:48 07/15/18 15:39 07/15/18 11:48 07/15/18 15:39 General appearance: age & developmentally appropriate, thin - Psychiatric Patient Orientation: Yes Person, Yes Time, Yes Place Level of alertness: Alert Behavior: calm Psychomotor activity: Slowed Eye Contact: Maintains Eye Contact Mood Description: Euthymic/stable Affect description: constricted Speech Volume: Soft/Quiet Speech pattern: normal rate Language & Vocabulary: consistent with education Thought Process: Intact Thought Content: Yes Intact Perceptual Disturbances: No Auditory hallucinations, No Visual hallucinations Attention Span Ability: Capable of Focused Attention Memory Description: Grossly Intact Patient Reliability: Reliable Historian Fund of knowledge: Yes abstraction ability, Yes aware of current events Intelligence Estimate: Average Judgment: Good Insight: Full Results - Drug Levels and Toxicology Drug Levels and Toxicology: Drug Levels and Toxicity 07/15/18 01:30 Acetaminophen < 10 L Ethyl Alcohol < 10 - Labs Labs: Laboratory Last Values WBC 9.1 K/mcL (4.3-11.1) 07/14/18 22:14 RBC 5.02 M/mcL (3.82-4.97) H 07/14/18 22:14 Hgb 12.7 g/dL (11.5-15.4) 07/14/18 22:14 Hct 40.3 % (35.3-44.9) 07/14/18 22:14 MCV 80.3 fL (83.0-100.0) L 07/14/18 22:14 MCH 25.3 pg (28.0-33.3) L 07/14/18 22:14 MCHC 31.5 g/dL (31.6-35.5) L 07/14/18 22:14 RDW 21.2 % (11.5-14.5) H 07/14/18 22:14 Plt Count 315 K/mcL (140-400) 07/14/18 22:14 MPV 9.4 fL (9.4-12.4) 07/14/18 22:14 Immature Gran % 0.3 % (0-4) 07/14/18 22:14 Seg Neutrophils % 63.1 % 07/14/18 22:14 Lymphocytes % 29.7 % 07/14/18 22:14 Monocytes % 6.4 % 07/14/18 22:14 Eosinophils % 0.3 % 07/14/18 22:14 Basophils % 0.2 % 07/14/18 22:14 Neutrophils # 5.7 K/mcL (1.6-8.9) 07/14/18 22:14 Lymphocytes # 2.7 K/mcL (0.6-4.6) 07/14/18 22:14 Monocytes # 0.6 K/mcL (0.0-1.3) 07/14/18 22:14 Eosinophils # 0.0 K/mcL (0.0-0.6) 07/14/18 22:14 Basophils # 0.0 K/mcL (0.0-0.2) 07/14/18 22:14 Sodium 138 mEq/L (136-145) 07/14/18 22:14 Potassium 3.7 mEq/L (3.5-5.1) 07/14/18 22:14 Chloride 107 mEq/L (98-107) 07/14/18 22:14 Carbon Dioxide 18 mEq/L (23-29) L 07/14/18 22:14 BUN 9 mg/dL (6-20) 07/14/18 22:14 Creatinine 0.60 mg/dL (0.60-1.20) 07/14/18 22:14 Est GFR ( Amer) > 60 (> 60) 07/14/18 22:14 Est GFR (Non-Af Amer) > 60 (> 60) 07/14/18 22:14 BUN/Creatinine Ratio 15 (6-26) 07/14/18 22:14 Glucose 78 mg/dL (70-105) 07/14/18 22:14 POC Glucose 141 mg/dL (70-99) H 07/15/18 12:01 Calculated Osmolality 284 (280-300) 07/14/18 22:14 Lactic Acid 0.7 mmol/L (0.5-2.2) 07/14/18 22:14 Calcium 8.9 mg/dL (8.6-10.3) 07/14/18 22:14 Troponin I < 0.03 ng/mL (< 0.04) 07/14/18 22:14 B-Natriuretic Peptide 22 pg/mL (Less than 100) 07/14/18 22:14 Salicylates < 2.5 mg/dL (15.0-30.0) L 07/15/18 01:30 Acetaminophen < 10 mcg/mL (10-20) L 07/15/18 01:30 Ethyl Alcohol < 10 mg/dL (Less than 10) 07/15/18 01:30 Chlamy pneumoniae PCR Not Detected (Not Detect) 07/15/18 09:54 Adenovirus (PCR) Not Detected (Not Detect) 07/15/18 09:54 B. pertussis DNA (PCR) Not Detected (Not Detect) 07/15/18 09:54 B.parapertussis DNA PCR Not Detected (Not Detect) 07/15/18 09:54 Coronavirus OC43 (PCR) Not Detected (Not Detect) 07/15/18 09:54 Coronavirus HKU1 (PCR) Not Detected (Not Detect) 07/15/18 09:54 Coronavirus 229E (PCR) Not Detected (Not Detect) 07/15/18 09:54 Coronavirus NL63 (PCR) Not Detected (Not Detect) 07/15/18 09:54 Human Metapneumovir PCR Not Detected (Not Detect) 07/15/18 09:54 Influenza A (H1) PCR Not Detected (Not Detect) 07/15/18 09:54 Influ A (H1N1/09) PCR Not Detected (Not Detect) 07/15/18 09:54 Influenza A (H3) PCR Not Detected (Not Detect) 07/15/18 09:54 Influenza A Untype (PCR) Not Detected (Not Detect) 07/15/18 09:54 Influenza Type B (PCR) Not Detected (Not Detect) 07/15/18 09:54 M.pneumoniae DNA (PCR) Not Detected (Not Detect) 07/15/18 09:54 Parainfluenza 1 (PCR) Not Detected (Not Detect) 07/15/18 09:54 Parainfluenza 2 (PCR) Not Detected (Not Detect) 07/15/18 09:54 Parainfluenza 3 (PCR) Not Detected (Not Detect) 07/15/18 09:54 Parainfluenza 4 (PCR) Not Detected (Not Detect) 07/15/18 09:54 RSV (PCR) Not Detected (Not Detect) 07/15/18 09:54 Entero/Rhino (PCR) Not Detected (Not Detect) 07/15/18 09:54 - Impressions Impressions Head CT 07/15/18 23:47 IMPRESSION: No acute intracranial abnormality. D/ / Sumeet Hopson MD / Sumeet Hopson MD Interpreting Provider: Sumeet Hopson MD Consult Discharge Plan - Plan Referrals: NONE,PCP [Primary Care Provider] -
[2018-07-15] MEDS ORDERED: *HR* Heparin 5,000 UNIT/ML VIAL SQ SCH (18:00)
[2018-07-15] MEDS ORDERED: Nicotine 14 MG PATCH.TD24 TD SCH (18:45)
[2018-07-15 19:18] VITALS: BP 133/77
[2018-07-15] MEDS ORDERED: Insulin LISPRO 300 UNITS/3 ML VIAL SQ SCH (21:00)
--- NOTE | 2018-07-15 21:24 | Electrocardiograph Report ---
[place] [facility] Test Date: 2018-07-15 Pat Name: Sharlene Crawford Department: EXAM5 Room: [facility] Gender: F Print Developer: : 1965 Requested By: Howie Lai Order Number: [id number] Reading MD: Juan Alberto Coker Measurements Intervals [place] Rate: 76 P: 79 LA: 172 QRS: 67 QRSD: 84 T: 77 QT: 421 QTc: 474 Interpretive Statements Sinus rhythm Biatrial enlargement Electronically Signed On 07-15-2018 21:23:09 EDT by Juan Alberto Coker
[2018-07-18 11:00] LABS: Mycoplasma pneumoniae IgG 0.46 U/L (<=0.09)
== END 2018-07-15 22:02 | disposition left against medical advice (07) ==
LOC: 2SOUTHHOLD 21:33 → EMEROOARM 21:33 → 2SOUTHHOLD 07-15 01:31
PROVIDERS: ADMIT Pediatrics; ATTEND Pediatrics

== ENCOUNTER 2019-12-04 21:51 | Inpatient (IN) ==
[~2019-12-04 21:51] MED LIST: *HR* LORazepam 2 MG/ML VIAL IVP ONE
[2019-12-04] MEDS ORDERED: 0.9 % Sodium Chloride 1,000 ML ONE (21:56)
[2019-12-04] MEDS ORDERED: *HR* LORazepam 2 MG/ML VIAL ONE (22:01)
[2019-12-04] MEDS ORDERED: Sodium Bicarbonate 50 MEQ/50 ML VIAL ONE (22:12)
[2019-12-04] MEDS ORDERED: Sodium Bicarbonate 50 MEQ/50 ML VIAL IVP ONE ×2 (22:15→22:55)
[2019-12-04 22:28] LABS: ABG Base Excess < -30 mEq/L (-2 to 3); ABG HCO3 6 mEq/L (21-27); ABG Oxygen Saturation 89 % (95-98); ABG PCO2 57 mmHg (35-45); ABG PH 6.64 pH Units (7.32-7.45); ABG PO2 124 mmHg (85-104); ABG TCO2 8 mEq/L (20-26)
[2019-12-04 22:31] LABS: Basophils % 0.5 %; Immature Granulocytes % 4.5 % (0-4)
[2019-12-04 22:33] LABS: Basophils # 0.2 K/mcL (0.0-0.2); Eosinophils # 0.7 K/mcL (0.0-0.6); Eosinophils % 1.8 %; Hematocrit 44.5 % (35.3-44.9); Hemoglobin 12.1 g/dL (11.5-15.4); Lymphocytes # 8.1 K/mcL (0.6-4.6); Lymphocytes % 21.6 %; Mean Corpuscular HGB Conc 27.2 g/dL (31.6-35.5); Mean Corpuscular Volume 95.7 fL (83.0-100.0); Mean Platelet Volume 10.5 fL (9.4-12.4); Monocytes # 1.7 K/mcL (0.0-1.3); Monocytes % 4.6 %; Neutrophils # 25.1 K/mcL (1.6-8.9); Platelet Count 452 K/mcL (140-400); Red Blood Count 4.65 M/mcL (3.82-4.97); Red Cell Distribution Width 17.4 % (11.5-14.5)
[2019-12-04 22:33] LABS: Bilirubin,Urine Negative (Negative); Blood,Urine Trace (Negative); Clarity,Urine Cloudy (Clear); Color,Urine Yellow (Yellow); Glucose,Urine (UA) Normal (Normal); Ketones,Urine Negative (Negative); Leukocyte Esterase,Urine Negative (Negative); Nitrite,Urine Negative (Negative); Protein,Urine >=300 mg/dL (Neg-Trace); Specific Gravity,Urine 1.019 (1.010-1.025); Urobilinogen,Urine Normal (Normal)
[2019-12-04 22:34] LABS: Bacteria,Urine None Seen per hpf (None-Few); Hyaline Casts,Urine None Seen per lpf (None-Few); Squamous Epithelial Cell,Urine Moderate per lpf (None-Few); WBC,Urine 0-3 per hpf (0-3)
[2019-12-04 22:35] LABS: Amphetamine Screen,Urine Negative ng/mL (Cutoff=1000); Barbiturate Screen,Urine Negative ng/mL (Cutoff=200); Benzodiazepines Screen,Urine Positive ng/mL (Cutoff=200); Cannabinoid Screen,Urine Positive ng/mL (Cutoff = 50); Cocaine Screen,Urine Negative ng/mL (Cutoff= 300); Opiate Screen,Urine Negative ng/mL (Cutoff=300); Phencyclidine Screen,Urine Negative ng/mL (Cutoff=25)
[2019-12-04 22:41] LABS: White Blood Count 37.4 K/mcL (4.3-11.1)
[2019-12-04 22:42] LABS: Prothrombin Time 11.1 Seconds (9.4-12.1)
[2019-12-04 22:45] LABS: Activated Partial Thrombo Time 39.7 Seconds (26.0-36.0)
[2019-12-04 22:49] LABS: Hypochromasia Present (Not Present); Reactive Lymphocytes Present (Not Present)
[2019-12-04] MEDS ORDERED: Ringers Solution, Lactated 1,000 ML ONE (22:50)
[2019-12-04 22:57] LABS: Alanine Aminotransferase 10 Units/L (7-52); Albumin 3.7 g/dL (3.5-5.7); Albumin/Globulin Ratio 1.2 (1.1-2.2); Alkaline Phosphatase 82 Units/L (34-104); Aspartate Amino Transferase 19 Units/L (13-39); BUN/Creatinine Ratio 7 (6-26); Bilirubin,Indirect 0.1 mg/dL (0.0-1.0); Bilirubin,Total 0.1 mg/dL (0.3-1.0); Blood Urea Nitrogen 9 mg/dL (6-20); Carbon Dioxide 7 mEq/L (23-29); Chloride 98 mEq/L (98-107); Creatine Kinase 260 Units/L (30-223); Ethanol < 10 mg/dL (Less than 10); Globulin 3.1 g/dL (2.4-3.5); Glucose 327 mg/dL (70-105); Osmolality,Calculated 301 (280-300); Potassium 3.3 mEq/L (3.5-5.1); Sodium 140 mEq/L (136-145); Total Protein 6.8 g/dL (6.4-8.9); Troponin I 0.03 ng/mL (< 0.04); eGFR For African Americans 53 (> 60); eGFR For Non-African Americans 44 (> 60)
[2019-12-04] MEDS ORDERED: Ringers Solution, Lactated 1,000 ML IV ONE (23:00)
[2019-12-04] MEDS ORDERED: Piperacillin/Tazobactam 3.375 GM in 0.9 % Sodium Chloride Mini Bag 100 ML IVPB ONE (23:00)
[2019-12-04] MEDS ORDERED: Sodium Bicarbonate 150 MEQ in D5% in Water 1,000 ML IVC SCH (23:00)
[2019-12-04] MEDS ORDERED: 0.9 % Sodium Chloride 1,000 ML IV ONE (23:05)
[2019-12-04 23:19] LABS: VBG PCO2 65 mmHg (41-51); VBG PH < 6.50 pH Units (7.32-7.42); VBG PO2 135 mmHg (25-50)
[2019-12-04] MEDS ORDERED: Ringers Solution, Lactated 1,000 ML IVC ONE (23:21)
[2019-12-04] MEDS: FentaNYL (PF) 1,000 MCG in 0.9 % Sodium Chloride 80 ML IVC SCH (23:26)
[2019-12-04] MEDS ORDERED: Isovue-370 500 ML BOTTLE IVP ONE (23:30)
[2019-12-04 23:41] LABS: ABG Base Excess -8 mEq/L (-2 to 3); ABG HCO3 21 mEq/L (21-27); ABG Oxygen Saturation 96 % (95-98); ABG PCO2 57 mmHg (35-45); ABG PH 7.18 pH Units (7.32-7.45); ABG PO2 106 mmHg (85-104); ABG TCO2 23 mEq/L (20-26); Blood Gas Modality ASSIST CONTROL; Blood Gas VT 500 cc
[2019-12-04 23:54] LABS: Thyroid Stimulating Hormone 3.164 mcIU/mL (0.340-5.600)
[2019-12-05 01:04] LABS: ABG Base Excess 4 mEq/L (-2 to 3); ABG HCO3 30 mEq/L (21-27); ABG Oxygen Saturation 94 % (95-98); ABG PCO2 53 mmHg (35-45); ABG PH 7.37 pH Units (7.32-7.45); ABG PO2 77 mmHg (85-104); ABG TCO2 32 mEq/L (20-26); Blood Gas Modality ASSIST CONTROL; Blood Gas VT 500 cc
[2019-12-05 01:05] LABS: BUN/Creatinine Ratio 8 (6-26); Blood Urea Nitrogen 9 mg/dL (6-20); Carbon Dioxide 23 mEq/L (23-29); Chloride 105 mEq/L (98-107); Glucose 139 mg/dL (70-105); Osmolality,Calculated 297 (280-300); Sodium 143 mEq/L (136-145); eGFR For African Americans > 60 (> 60); eGFR For Non-African Americans 51 (> 60)
[2019-12-05] MEDS ORDERED: 0.9 % Sodium Chloride 1,000 ML IVC ONE (01:54)
[2019-12-05] MEDS ORDERED: Naloxone 0.4 MG/ML INJ IVP PRN (03:48)
[2019-12-05] MEDS ORDERED: Lactulose 200 GM, Sodium Chloride IRRigation 700 ML RC ONE (04:42)
[2019-12-05] MEDS: FentaNYL (PF) 1,000 MCG in 0.9 % Sodium Chloride 80 ML IVC SCH ×3 (05:11→20:45)
[2019-12-05] MEDS: 0.9 % Sodium Chloride w KCl 40 MEQ/1,000 ML MLS IVC SCH ×2 (05:18→14:57)
[2019-12-05] MEDS: *HR* Heparin 5,000 UNIT/ML VIAL SQ SCH ×2 (05:19→17:26)
[2019-12-05] MEDS ORDERED: Potassium Chloride Elixir 20 MEQ/15 ML UDC GTUBE ONE (05:41)
[2019-12-05] MEDS ORDERED: Lactulose Oral Soln 20 GM/30 ML UDC PO SCH (06:00)
[2019-12-05] MEDS ORDERED: Artificial Tears SOLN 15 ML BOTTLE BOTH EYES PRN (06:43)
[2019-12-05] MEDS: Piperacillin/Tazobactam 3.375 GM in 0.9 % Sodium Chloride Mini Bag 100 ML IVPB SCH ×2 (07:22→16:05)
[2019-12-05] MEDS: Artificial Tears SOLN 15 ML BOTTLE BOTH EYES SCH ×5 (07:22→23:02)
[2019-12-05 07:51] LABS: Adenovirus Not Detected (Not Detect); Bordetella Pertussis Not Detected (Not Detect); Coronavirus 229E Not Detected (Not Detect); Coronavirus HKU1 Not Detected (Not Detect); Coronavirus NL63 Not Detected (Not Detect); Coronavirus OC43 Not Detected (Not Detect); Human Metapneumovirus Not Detected (Not Detect); Human Rhinovirus/Enterovirus Not Detected (Not Detect); Influenza A Subtype 2009 H1 Not Detected (Not Detect); Influenza B Not Detected (Not Detect); Parainfluenza Virus 1 Not Detected (Not Detect); Parainfluenza Virus 2 Not Detected (Not Detect); Parainfluenza Virus 3 Not Detected (Not Detect); Parainfluenza Virus 4 Not Detected (Not Detect); Respiratory Syncytial Virus Not Detected (Not Detect)
[2019-12-05 07:52] LABS: Chlamydophila pneumoniae Not Detected (Not Detect); Mycoplasma pneumoniae Not Detected (Not Detect)
[2019-12-05 08:16] LABS: Alanine Aminotransferase 11 Units/L (7-52); Albumin 2.8 g/dL (3.5-5.7); Albumin/Globulin Ratio 1.2 (1.1-2.2); Alkaline Phosphatase 62 Units/L (34-104); Aspartate Amino Transferase 41 Units/L (13-39); BUN/Creatinine Ratio 9 (6-26); Bilirubin,Total 0.2 mg/dL (0.3-1.0); Blood Urea Nitrogen 7 mg/dL (6-20); Calcium 7.5 mg/dL (8.6-10.3); Carbon Dioxide 28 mEq/L (23-29); Chloride 108 mEq/L (98-107); Globulin 2.4 g/dL (2.4-3.5); Glucose 91 mg/dL (70-105); Osmolality,Calculated 296 (280-300); Potassium 3.8 mEq/L (3.5-5.1); Sodium 144 mEq/L (136-145); Total Protein 5.2 g/dL (6.4-8.9); eGFR For African Americans > 60 (> 60); eGFR For Non-African Americans > 60 (> 60)
[2019-12-05] MEDS: Pantoprazole 40 MG VIAL IVP SCH (08:16)
[2019-12-05] MEDS: Nicotine 21 MG PATCH.TD24 TD SCH (08:16)
[2019-12-05] MEDS: Chlorhexidine Rinse 15 ML MOUTHWASH MM SCH ×2 (08:16→20:02)
[2019-12-05] MEDS ORDERED: Albuterol 2.5 MG/3 ML NEBULIZER IH PRN (08:41)
[2019-12-05] MEDS ORDERED: *HR* Etomidate 20 MG/10 ML AMPUL IVP ONE (08:53)
[2019-12-05] MEDS ORDERED: *HR* Succinylcholine 200 MG/10 ML VIAL IVP ONE (08:53)
[2019-12-05 10:09] LABS: Hematocrit 38.5 % (35.3-44.9); Mean Corpuscular HGB Conc 31.2 g/dL (31.6-35.5); Mean Corpuscular Hemoglobin 25.6 pg (28.0-33.3); Mean Corpuscular Volume 82.1 fL (83.0-100.0); Mean Platelet Volume 9.9 fL (9.4-12.4); Platelet Count 247 K/mcL (140-400); Red Blood Count 4.69 M/mcL (3.82-4.97); Red Cell Distribution Width 17.2 % (11.5-14.5); Segmented Neutrophils % 90.3 %
[2019-12-05 10:10] LABS: Basophils % 0.1 %; Immature Granulocytes % 0.4 % (0-4); Lymphocytes # 0.9 K/mcL (0.6-4.6); Lymphocytes % 5.5 %; Monocytes # 0.6 K/mcL (0.0-1.3); Monocytes % 3.7 %; Neutrophils # 14.5 K/mcL (1.6-8.9)
[2019-12-05] MEDS: Ipratropium/Albuterol Neb 3 ML IH SCH ×4 (11:28→23:18)
[2019-12-05] MEDS: Budesonide/Formoterol 160/4.5 1 PUFF INH IH SCH ×2 (11:29→19:51)
[2019-12-05] MEDS ORDERED: Gadolinium Contrast Agent (WT Based) IV PRN (12:17)
[2019-12-05] MEDS ORDERED: levETIRAcetam 250 MG TABLET PO SCH (18:00)
[2019-12-06] MEDS: Piperacillin/Tazobactam 3.375 GM in 0.9 % Sodium Chloride Mini Bag 100 ML IVPB SCH ×4 (00:15→23:26)
[2019-12-06] MEDS: 0.9 % Sodium Chloride w KCl 40 MEQ/1,000 ML MLS IVC SCH (00:15)
[2019-12-06] MEDS: Artificial Tears SOLN 15 ML BOTTLE BOTH EYES SCH ×6 (03:51→23:26)
[2019-12-06] MEDS: Ipratropium/Albuterol Neb 3 ML IH SCH ×6 (03:52→23:46)
[2019-12-06 04:40] LABS: ABG Base Excess -2 mEq/L (-2 to 3); ABG HCO3 23 mEq/L (21-27); ABG Oxygen Saturation 93 % (95-98); ABG PCO2 36 mmHg (35-45); ABG PO2 65 mmHg (85-104); ABG TCO2 24 mEq/L (20-26); Blood Gas Modality AF; Blood Gas VT 450 cc
[2019-12-06] MEDS: *HR* Heparin 5,000 UNIT/ML VIAL SQ SCH ×2 (04:56→17:01)
[2019-12-06 05:02] LABS: Basophils % 0.2 %; Eosinophils % 0.1 %; Hematocrit 38.2 % (35.3-44.9); Hemoglobin 11.3 g/dL (11.5-15.4); Immature Granulocytes % 0.4 % (0-4); Lymphocytes # 1.6 K/mcL (0.6-4.6); Lymphocytes % 7.4 %; Mean Corpuscular HGB Conc 29.6 g/dL (31.6-35.5); Mean Corpuscular Hemoglobin 25.7 pg (28.0-33.3); Mean Platelet Volume 10.8 fL (9.4-12.4); Monocytes # 0.8 K/mcL (0.0-1.3); Monocytes % 3.8 %; Neutrophils # 18.6 K/mcL (1.6-8.9); Platelet Count 221 K/mcL (140-400); Red Blood Count 4.39 M/mcL (3.82-4.97); Red Cell Distribution Width 17.8 % (11.5-14.5); Segmented Neutrophils % 88.1 %; White Blood Count 21.1 K/mcL (4.3-11.1)
[2019-12-06 05:23] LABS: Alanine Aminotransferase 14 Units/L (7-52); Albumin 2.8 g/dL (3.5-5.7); Albumin/Globulin Ratio 1.2 (1.1-2.2); Alkaline Phosphatase 61 Units/L (34-104); Aspartate Amino Transferase 100 Units/L (13-39); BUN/Creatinine Ratio 17 (6-26); Bilirubin,Total 0.3 mg/dL (0.3-1.0); Blood Urea Nitrogen 10 mg/dL (6-20); Calcium 7.8 mg/dL (8.6-10.3); Carbon Dioxide 21 mEq/L (23-29); Chloride 115 mEq/L (98-107); Globulin 2.4 g/dL (2.4-3.5); Glucose 70 mg/dL (70-105); Magnesium 2.1 mg/dL (1.6-2.6); Osmolality,Calculated 295 (280-300); Phosphorous 3.3 mg/dL (2.7-4.5); Potassium 4.8 mEq/L (3.5-5.1); Sodium 144 mEq/L (136-145); Total Protein 5.2 g/dL (6.4-8.9); eGFR For African Americans > 60 (> 60); eGFR For Non-African Americans > 60 (> 60)
[2019-12-06 05:26] LABS: Anisocytosis 1+ (Not Present); Hypochromasia Present (Not Present); Platelet Estimate Normal (Normal)
[2019-12-06] MEDS: FentaNYL (PF) 1,000 MCG in 0.9 % Sodium Chloride 80 ML IVC SCH ×4 (05:28→22:03)
[2019-12-06 05:42] LABS: Creatine Kinase 16582 Units/L (30-223)
[2019-12-06] MEDS: Budesonide/Formoterol 160/4.5 1 PUFF INH IH SCH ×2 (07:40→20:02)
[2019-12-06] MEDS: Pantoprazole 40 MG VIAL IVP SCH (08:01)
[2019-12-06] MEDS: Chlorhexidine Rinse 15 ML MOUTHWASH MM SCH ×2 (08:02→20:04)
[2019-12-06] MEDS: Nicotine 21 MG PATCH.TD24 TD SCH (08:02)
[2019-12-06] MEDS: Ringers Solution, Lactated 1,000 ML IVC SCH ×2 (08:31→17:01)
[2019-12-06] MEDS ORDERED: 0.9 % Sodium Chloride 250 ML ONE ×2 (09:07→22:24)
[2019-12-06] MEDS ORDERED: Vancomycin 750 MG VIAL ONE ×2 (09:07→22:24)
[2019-12-06] MEDS: *HR* LORazepam 2 MG/ML VIAL IVP PRN ×2 (09:36→15:41)
[2019-12-07] MEDS: Ringers Solution, Lactated 1,000 ML IVC SCH ×5 (02:10→21:58)
[2019-12-07] MEDS: Ipratropium/Albuterol Neb 3 ML IH SCH ×6 (03:29→23:07)
[2019-12-07] MEDS: FentaNYL (PF) 1,000 MCG in 0.9 % Sodium Chloride 80 ML IVC SCH (03:45)
[2019-12-07] MEDS: Artificial Tears SOLN 15 ML BOTTLE BOTH EYES SCH ×3 (04:30→11:25)
[2019-12-07] MEDS: *HR* Heparin 5,000 UNIT/ML VIAL SQ SCH ×2 (05:06→17:07)
[2019-12-07 05:37] LABS: ABG Base Excess 0 mEq/L (-2 to 3); ABG HCO3 26 mEq/L (21-27); ABG Oxygen Saturation 96 % (95-98); ABG PCO2 52 mmHg (35-45); ABG PH 7.31 pH Units (7.32-7.45); ABG PO2 94 mmHg (85-104); ABG TCO2 28 mEq/L (20-26); Blood Gas Modality AF; Blood Gas VT 400 cc
[2019-12-07] MEDS: Piperacillin/Tazobactam 3.375 GM in 0.9 % Sodium Chloride Mini Bag 100 ML IVPB SCH ×2 (07:33→17:07)
[2019-12-07] MEDS: Nicotine 21 MG PATCH.TD24 TD SCH (07:34)
[2019-12-07] MEDS: Chlorhexidine Rinse 15 ML MOUTHWASH MM SCH (07:34)
[2019-12-07] MEDS: Pantoprazole 40 MG VIAL IVP SCH (07:34)
[2019-12-07] MEDS: Budesonide/Formoterol 160/4.5 1 PUFF INH IH SCH ×2 (07:34→20:25)
[2019-12-07] MEDS: *HR* LORazepam 2 MG/ML VIAL IVP PRN (07:51)
[2019-12-07] MEDS ORDERED: Furosemide 40 MG/4 ML VIAL IVP ONE (09:05)
[2019-12-07] MEDS ORDERED: Aminoglycoside Consult 1 EACH MC ONE (09:47)
[2019-12-07] MEDS ORDERED: Permethrin CRM 60 GM TUBE TP ONE (10:54)
[2019-12-07] MEDS ORDERED: Permethrin Cream Rinse 60 ML LIQUID TP ONE (11:00)
[2019-12-07 11:28] LABS: Basophils % 0.2 %; Eosinophils % 0.2 %; Hematocrit 36.7 % (35.3-44.9); Hemoglobin 11.5 g/dL (11.5-15.4); Immature Granulocytes % 0.8 % (0-4); Lymphocytes % 5.2 %; Mean Corpuscular HGB Conc 31.3 g/dL (31.6-35.5); Mean Corpuscular Hemoglobin 26.4 pg (28.0-33.3); Mean Corpuscular Volume 84.4 fL (83.0-100.0); Mean Platelet Volume 10.2 fL (9.4-12.4); Monocytes # 0.6 K/mcL (0.0-1.3); Monocytes % 3.2 %; Neutrophils # 17.1 K/mcL (1.6-8.9); Platelet Count 240 K/mcL (140-400); Red Blood Count 4.35 M/mcL (3.82-4.97); Red Cell Distribution Width 17.7 % (11.5-14.5); Segmented Neutrophils % 90.4 %; White Blood Count 18.9 K/mcL (4.3-11.1)
[2019-12-07] MEDS ORDERED: amLODIPine 5 MG TABLET PO STA (11:42)
[2019-12-07 12:25] LABS: BUN/Creatinine Ratio 14 (6-26); Blood Urea Nitrogen 7 mg/dL (6-20); Calcium 8.7 mg/dL (8.6-10.3); Carbon Dioxide 25 mEq/L (23-29); Chloride 105 mEq/L (98-107); Creatine Kinase > 20000 Units/L (30-223); Glucose 89 mg/dL (70-105); Osmolality,Calculated 293 (280-300); Potassium 4.2 mEq/L (3.5-5.1); Sodium 143 mEq/L (136-145); eGFR For African Americans > 60 (> 60); eGFR For Non-African Americans > 60 (> 60)
[2019-12-07] MEDS: Ondansetron ODT 4 MG TAB.RAPDIS SL PRN (13:51)
[2019-12-07] MEDS ORDERED: amLODIPine 5 MG TABLET PO ONE (15:30)
[2019-12-07 15:36] LABS: BUN/Creatinine Ratio 16 (6-26); Blood Urea Nitrogen 7 mg/dL (6-20); Calcium 8.3 mg/dL (8.6-10.3); Carbon Dioxide 27 mEq/L (23-29); Chloride 102 mEq/L (98-107); Creatine Kinase > 20000 Units/L (30-223); Glucose 92 mg/dL (70-105); Osmolality,Calculated 288 (280-300); Potassium 3.6 mEq/L (3.5-5.1); Sodium 140 mEq/L (136-145); eGFR For African Americans > 60 (> 60); eGFR For Non-African Americans > 60 (> 60)
[2019-12-07] MEDS: *HR* Buprenorphine HCl 8 MG TAB.SUBL SL SCH (17:07)
[2019-12-07] MEDS ORDERED: Vancomycin 750 MG VIAL ONE (21:48)
[2019-12-07] MEDS ORDERED: 0.9 % Sodium Chloride 250 ML ONE (21:48)
[2019-12-07] MEDS: Gabapentin 300 MG CAPSULE PO SCH (21:51)
[2019-12-07] MEDS: Valproic Acid 250 MG CAPSULE PO SCH (21:51)
[2019-12-08] MEDS: *HR* LORazepam 2 MG/ML VIAL IVP PRN ×3 (00:48→22:54)
[2019-12-08] MEDS: Piperacillin/Tazobactam 3.375 GM in 0.9 % Sodium Chloride Mini Bag 100 ML IVPB SCH ×4 (00:48→23:59)
[2019-12-08] MEDS: Ipratropium/Albuterol Neb 3 ML IH SCH ×5 (03:11→20:03)
[2019-12-08] MEDS: Ringers Solution, Lactated 1,000 ML IVC SCH ×2 (03:20→08:36)
[2019-12-08 05:07] LABS: Basophils % 0.2 %; Eosinophils # 0.2 K/mcL (0.0-0.6); Eosinophils % 1.4 %; Hematocrit 30.8 % (35.3-44.9); Immature Granulocytes % 0.6 % (0-4); Lymphocytes # 2.1 K/mcL (0.6-4.6); Mean Corpuscular HGB Conc 32.5 g/dL (31.6-35.5); Mean Corpuscular Hemoglobin 26.5 pg (28.0-33.3); Mean Corpuscular Volume 81.7 fL (83.0-100.0); Mean Platelet Volume 10.3 fL (9.4-12.4); Monocytes # 0.5 K/mcL (0.0-1.3); Monocytes % 3.7 %; Platelet Count 233 K/mcL (140-400); Red Blood Count 3.77 M/mcL (3.82-4.97); Red Cell Distribution Width 17.2 % (11.5-14.5); Segmented Neutrophils % 79.1 %; White Blood Count 13.9 K/mcL (4.3-11.1)
[2019-12-08 05:37] LABS: BUN/Creatinine Ratio 16 (6-26); Blood Urea Nitrogen 6 mg/dL (6-20); Calcium 7.9 mg/dL (8.6-10.3); Carbon Dioxide 29 mEq/L (23-29); Chloride 104 mEq/L (98-107); Creatine Kinase > 20000 Units/L (30-223); Glucose 85 mg/dL (70-105); Magnesium 1.4 mg/dL (1.6-2.6); Osmolality,Calculated 289 (280-300); Phosphorous 3.3 mg/dL (2.7-4.5); Potassium 3.6 mEq/L (3.5-5.1); Sodium 141 mEq/L (136-145); eGFR For African Americans > 60 (> 60); eGFR For Non-African Americans > 60 (> 60)
[2019-12-08] MEDS: *HR* Buprenorphine HCl 8 MG TAB.SUBL SL SCH ×2 (06:13→18:16)
[2019-12-08] MEDS: *HR* Heparin 5,000 UNIT/ML VIAL SQ SCH ×2 (06:13→18:16)
[2019-12-08] MEDS: Budesonide/Formoterol 160/4.5 1 PUFF INH IH SCH ×2 (07:46→20:02)
[2019-12-08] MEDS: Nicotine 21 MG PATCH.TD24 TD SCH (08:38)
[2019-12-08] MEDS: Furosemide 40 MG/4 ML VIAL IVP SCH (08:41)
[2019-12-08] MEDS: Pantoprazole 40 MG VIAL IVP SCH (08:41)
[2019-12-08] MEDS: Gabapentin 300 MG CAPSULE PO SCH ×3 (08:42→20:33)
[2019-12-08] MEDS: Valproic Acid 250 MG CAPSULE PO SCH ×2 (08:42→20:33)
[2019-12-08] MEDS ORDERED: Potassium Chloride 40 MEQ/200 ML BAG IVPB PRN (09:00)
[2019-12-08] MEDS ORDERED: Potassium Phosphate 44 MEQ in 0.9 % Sodium Chloride 250 ML IVPB PRN (09:00)
[2019-12-08] MEDS: Sodium Bicarbonate 150 MEQ in D5% in Water 1,000 ML IVC SCH ×3 (10:53→22:30)
[2019-12-08] MEDS: Ondansetron ODT 4 MG TAB.RAPDIS SL PRN (11:04)
[2019-12-08] MEDS ORDERED: amLODIPine 5 MG TABLET PO ONE (15:30)
[2019-12-08 15:55] LABS: BUN/Creatinine Ratio 17 (6-26); Blood Urea Nitrogen 6 mg/dL (6-20); Carbon Dioxide 33 mEq/L (23-29); Chloride 98 mEq/L (98-107); Glucose 109 mg/dL (70-105); Osmolality,Calculated 290 (280-300); Potassium 3.2 mEq/L (3.5-5.1); Sodium 141 mEq/L (136-145); eGFR For African Americans > 60 (> 60); eGFR For Non-African Americans > 60 (> 60)
[2019-12-08] MEDS: levETIRAcetam 250 MG TABLET PO SCH (18:16)
[2019-12-08 21:44] LABS: BUN/Creatinine Ratio 12 (6-26); Blood Urea Nitrogen 6 mg/dL (6-20); Calcium 7.9 mg/dL (8.6-10.3); Carbon Dioxide 36 mEq/L (23-29); Chloride 97 mEq/L (98-107); Glucose 126 mg/dL (70-105); Osmolality,Calculated 289 (280-300); Potassium 3.3 mEq/L (3.5-5.1); Sodium 140 mEq/L (136-145); eGFR For African Americans > 60 (> 60); eGFR For Non-African Americans > 60 (> 60)
[2019-12-09] MEDS: Ipratropium/Albuterol Neb 3 ML IH SCH ×5 (00:01→22:44)
[2019-12-09 02:28] LABS: Basophils % 0.3 %; Eosinophils # 0.4 K/mcL (0.0-0.6); Eosinophils % 4.5 %; Hematocrit 34.3 % (35.3-44.9); Hemoglobin 10.8 g/dL (11.5-15.4); Immature Granulocytes % 0.9 % (0-4); Lymphocytes % 21.9 %; Mean Corpuscular HGB Conc 31.5 g/dL (31.6-35.5); Mean Corpuscular Volume 82.7 fL (83.0-100.0); Monocytes # 0.4 K/mcL (0.0-1.3); Monocytes % 4.5 %; Neutrophils # 6.3 K/mcL (1.6-8.9); Platelet Count 275 K/mcL (140-400); Red Blood Count 4.15 M/mcL (3.82-4.97); Red Cell Distribution Width 16.5 % (11.5-14.5); Segmented Neutrophils % 67.9 %; White Blood Count 9.3 K/mcL (4.3-11.1)
[2019-12-09 02:35] LABS: VBG Ionized Calcium 1.01 mmol/L (1.15-1.35)
[2019-12-09] MEDS: Sodium Bicarbonate 150 MEQ in D5% in Water 1,000 ML IVC SCH (04:32)
[2019-12-09] MEDS: *HR* Heparin 5,000 UNIT/ML VIAL SQ SCH ×2 (05:25→17:03)
[2019-12-09] MEDS: *HR* Buprenorphine HCl 8 MG TAB.SUBL SL SCH ×2 (05:25→17:03)
[2019-12-09] MEDS: levETIRAcetam 250 MG TABLET PO SCH ×2 (05:25→17:03)
[2019-12-09 06:29] LABS: BUN/Creatinine Ratio 17 (6-26); Blood Urea Nitrogen 7 mg/dL (6-20); Calcium 7.4 mg/dL (8.6-10.3); Carbon Dioxide 42 mEq/L (23-29); Chloride 96 mEq/L (98-107); Glucose 122 mg/dL (70-105); Osmolality,Calculated 299 (280-300); Sodium 145 mEq/L (136-145); eGFR For African Americans > 60 (> 60); eGFR For Non-African Americans > 60 (> 60)
[2019-12-09] MEDS: Budesonide/Formoterol 160/4.5 1 PUFF INH IH SCH ×2 (07:32→22:44)
[2019-12-09] MEDS: Calcium Gluconate 1gm/50mL 1 GM/50 ML BAG IVPB PRN ×2 (07:54→21:16)
[2019-12-09] MEDS: Piperacillin/Tazobactam 3.375 GM in 0.9 % Sodium Chloride Mini Bag 100 ML IVPB SCH ×2 (08:02→17:03)
[2019-12-09] MEDS: Gabapentin 300 MG CAPSULE PO SCH ×3 (08:07→20:37)
[2019-12-09] MEDS: Nicotine 21 MG PATCH.TD24 TD SCH (08:07)
[2019-12-09] MEDS: Valproic Acid 250 MG CAPSULE PO SCH ×2 (08:07→20:36)
[2019-12-09] MEDS: Furosemide 40 MG/4 ML VIAL IVP SCH (09:19)
[2019-12-09] MEDS: *HR* LORazepam 2 MG/ML VIAL IVP PRN ×2 (09:28→20:39)
[2019-12-09 09:43] LABS: BUN/Creatinine Ratio 14 (6-26); Blood Urea Nitrogen 6 mg/dL (6-20); Calcium 7.6 mg/dL (8.6-10.3); Carbon Dioxide 42 mEq/L (23-29); Chloride 95 mEq/L (98-107); Glucose 171 mg/dL (70-105); Osmolality,Calculated 294 (280-300); Sodium 141 mEq/L (136-145); eGFR For African Americans > 60 (> 60); eGFR For Non-African Americans > 60 (> 60)
[2019-12-09] MEDS ORDERED: Sodium Bicarbonate 150 MEQ in D5% in Water 1,000 ML IVC SCH (09:47)
[2019-12-09] MEDS ORDERED: Albuterol 2.5 MG/3 ML NEBULIZER IH PRN (10:09)
[2019-12-09] MEDS ORDERED: Ringers Solution, Lactated 1,000 ML IVC SCH (11:15)
[2019-12-09] MEDS: Ringers Solution, Lactated 1,000 ML IVC SCH ×2 (11:50→19:38)
[2019-12-09] MEDS ORDERED: Acetaminophen 325 MG TABLET PO PRN (12:26)
[2019-12-09] MEDS ORDERED: Albuterol 2.5 MG/3 ML NEBULIZER IH SCH (15:00)
[2019-12-09 19:26] LABS: BUN/Creatinine Ratio 19 (6-26); Blood Urea Nitrogen 7 mg/dL (6-20); Calcium 7.8 mg/dL (8.6-10.3); Carbon Dioxide 37 mEq/L (23-29); Chloride 97 mEq/L (98-107); Glucose 114 mg/dL (70-105); Osmolality,Calculated 293 (280-300); Potassium 3.4 mEq/L (3.5-5.1); Sodium 142 mEq/L (136-145); eGFR For African Americans > 60 (> 60); eGFR For Non-African Americans > 60 (> 60)
[2019-12-09 19:30] LABS: Magnesium 1.9 mg/dL (1.6-2.6); Phosphorous 3.6 mg/dL (2.7-4.5)
[2019-12-09 21:01] LABS: BUN/Creatinine Ratio 24 (6-26); Blood Urea Nitrogen 9 mg/dL (6-20); Calcium 7.7 mg/dL (8.6-10.3); Carbon Dioxide 36 mEq/L (23-29); Chloride 98 mEq/L (98-107); Glucose 121 mg/dL (70-105); Osmolality,Calculated 292 (280-300); Potassium 3.7 mEq/L (3.5-5.1); Sodium 141 mEq/L (136-145); eGFR For African Americans > 60 (> 60); eGFR For Non-African Americans > 60 (> 60)
[2019-12-10] MEDS: Piperacillin/Tazobactam 3.375 GM in 0.9 % Sodium Chloride Mini Bag 100 ML IVPB SCH ×3 (00:24→16:56)
[2019-12-10 00:59] LABS: Basophils % 0.3 %; Eosinophils # 0.6 K/mcL (0.0-0.6); Eosinophils % 5.3 %; Hematocrit 33.7 % (35.3-44.9); Hemoglobin 10.4 g/dL (11.5-15.4); Immature Granulocytes % 0.6 % (0-4); Lymphocytes # 2.3 K/mcL (0.6-4.6); Mean Corpuscular HGB Conc 30.9 g/dL (31.6-35.5); Mean Corpuscular Hemoglobin 25.7 pg (28.0-33.3); Mean Corpuscular Volume 83.4 fL (83.0-100.0); Mean Platelet Volume 9.6 fL (9.4-12.4); Monocytes # 0.6 K/mcL (0.0-1.3); Monocytes % 5.3 %; Neutrophils # 6.9 K/mcL (1.6-8.9); Platelet Count 293 K/mcL (140-400); Red Blood Count 4.04 M/mcL (3.82-4.97); Red Cell Distribution Width 16.4 % (11.5-14.5); Segmented Neutrophils % 66.5 %; White Blood Count 10.3 K/mcL (4.3-11.1)
[2019-12-10 01:07] LABS: VBG Ionized Calcium 1.13 mmol/L (1.15-1.35)
[2019-12-10 01:32] LABS: BUN/Creatinine Ratio 24 (6-26); Blood Urea Nitrogen 9 mg/dL (6-20); Calcium 7.8 mg/dL (8.6-10.3); Carbon Dioxide 36 mEq/L (23-29); Chloride 101 mEq/L (98-107); Creatine Kinase 14331 Units/L (30-223); Glucose 91 mg/dL (70-105); Osmolality,Calculated 286 (280-300); Potassium 4.5 mEq/L (3.5-5.1); Sodium 139 mEq/L (136-145); eGFR For African Americans > 60 (> 60); eGFR For Non-African Americans > 60 (> 60)
[2019-12-10] MEDS: Ringers Solution, Lactated 1,000 ML IVC SCH ×4 (01:40→22:15)
[2019-12-10] MEDS: *HR* Buprenorphine HCl 8 MG TAB.SUBL SL SCH ×2 (05:45→16:56)
[2019-12-10] MEDS: *HR* Heparin 5,000 UNIT/ML VIAL SQ SCH ×2 (05:45→16:56)
[2019-12-10] MEDS: levETIRAcetam 250 MG TABLET PO SCH ×2 (05:46→16:56)
[2019-12-10 06:09] LABS: Basophils % 0.4 %; Eosinophils # 0.7 K/mcL (0.0-0.6); Eosinophils % 6.8 %; Hematocrit 35.1 % (35.3-44.9); Hemoglobin 10.5 g/dL (11.5-15.4); Immature Granulocytes % 0.7 % (0-4); Lymphocytes # 2.2 K/mcL (0.6-4.6); Lymphocytes % 21.8 %; Mean Corpuscular HGB Conc 29.9 g/dL (31.6-35.5); Mean Corpuscular Hemoglobin 25.2 pg (28.0-33.3); Mean Corpuscular Volume 84.2 fL (83.0-100.0); Mean Platelet Volume 9.9 fL (9.4-12.4); Monocytes # 0.6 K/mcL (0.0-1.3); Monocytes % 5.9 %; Neutrophils # 6.5 K/mcL (1.6-8.9); Platelet Count 308 K/mcL (140-400); Red Blood Count 4.17 M/mcL (3.82-4.97); Red Cell Distribution Width 16.5 % (11.5-14.5); Segmented Neutrophils % 64.4 %; White Blood Count 10.1 K/mcL (4.3-11.1)
[2019-12-10 06:15] LABS: VBG Ionized Calcium 1.16 mmol/L (1.15-1.35)
[2019-12-10] MEDS: Budesonide/Formoterol 160/4.5 1 PUFF INH IH SCH ×2 (07:15→22:06)
[2019-12-10] MEDS: Ipratropium/Albuterol Neb 3 ML IH SCH ×3 (07:15→22:06)
[2019-12-10] MEDS: Nicotine 21 MG PATCH.TD24 TD SCH (08:03)
[2019-12-10] MEDS: Valproic Acid 250 MG CAPSULE PO SCH ×2 (08:04→20:05)
[2019-12-10] MEDS: Gabapentin 300 MG CAPSULE PO SCH ×3 (08:04→20:05)
[2019-12-10] MEDS: Furosemide 40 MG/4 ML VIAL IVP SCH (08:06)
[2019-12-10] MEDS: *HR* LORazepam 2 MG/ML VIAL IVP PRN ×4 (08:14→21:09)
[2019-12-11] MEDS: Piperacillin/Tazobactam 3.375 GM in 0.9 % Sodium Chloride Mini Bag 100 ML IVPB SCH ×3 (01:25→15:48)
[2019-12-11 05:03] LABS: Basophils % 0.2 %; Eosinophils # 0.7 K/mcL (0.0-0.6); Eosinophils % 6.2 %; Hematocrit 33.1 % (35.3-44.9); Immature Granulocytes % 0.9 % (0-4); Lymphocytes # 2.3 K/mcL (0.6-4.6); Lymphocytes % 19.7 %; Mean Corpuscular HGB Conc 30.2 g/dL (31.6-35.5); Mean Corpuscular Hemoglobin 25.5 pg (28.0-33.3); Mean Corpuscular Volume 84.4 fL (83.0-100.0); Mean Platelet Volume 10.2 fL (9.4-12.4); Monocytes # 0.6 K/mcL (0.0-1.3); Monocytes % 4.8 %; Neutrophils # 7.9 K/mcL (1.6-8.9); Platelet Count 329 K/mcL (140-400); Red Blood Count 3.92 M/mcL (3.82-4.97); Red Cell Distribution Width 16.7 % (11.5-14.5); Segmented Neutrophils % 68.2 %; White Blood Count 11.6 K/mcL (4.3-11.1)
[2019-12-11 05:45] LABS: BUN/Creatinine Ratio 34 (6-26); Blood Urea Nitrogen 14 mg/dL (6-20); Calcium 8.3 mg/dL (8.6-10.3); Carbon Dioxide 30 mEq/L (23-29); Chloride 103 mEq/L (98-107); Creatine Kinase 7797 Units/L (30-223); Glucose 86 mg/dL (70-105); Osmolality,Calculated 288 (280-300); Phosphorous 3.9 mg/dL (2.7-4.5); Potassium 4.5 mEq/L (3.5-5.1); Sodium 139 mEq/L (136-145); eGFR For African Americans > 60 (> 60); eGFR For Non-African Americans > 60 (> 60)
[2019-12-11] MEDS: *HR* Heparin 5,000 UNIT/ML VIAL SQ SCH ×2 (05:59→18:08)
[2019-12-11] MEDS: levETIRAcetam 250 MG TABLET PO SCH ×2 (06:00→18:08)
[2019-12-11] MEDS: *HR* Buprenorphine HCl 8 MG TAB.SUBL SL SCH ×2 (06:00→18:09)
[2019-12-11] MEDS: Ringers Solution, Lactated 1,000 ML IVC SCH ×2 (06:09→12:06)
[2019-12-11] MEDS: Ipratropium/Albuterol Neb 3 ML IH SCH ×3 (07:18→22:04)
[2019-12-11] MEDS: Budesonide/Formoterol 160/4.5 1 PUFF INH IH SCH ×2 (07:19→22:04)
[2019-12-11] MEDS: Gabapentin 300 MG CAPSULE PO SCH (07:45)
[2019-12-11] MEDS: *HR* LORazepam 2 MG/ML VIAL IVP PRN ×3 (07:47→21:20)
[2019-12-11] MEDS: Nicotine 21 MG PATCH.TD24 TD SCH (07:47)
[2019-12-11] MEDS: Furosemide 40 MG/4 ML VIAL IVP SCH (07:47)
[2019-12-11] MEDS: Valproic Acid 250 MG CAPSULE PO SCH (07:51)
[2019-12-11] MEDS ORDERED: Permethrin Cream Rinse 60 ML LIQUID TP ONE (20:47)
[2019-12-12] MEDS ORDERED: 0.9 % Sodium Chloride 250 ML ONE ×2 (00:11→12:18)
[2019-12-12] MEDS ORDERED: Vancomycin 750 MG VIAL ONE ×2 (00:11→12:18)
[2019-12-12] MEDS: Piperacillin/Tazobactam 3.375 GM in 0.9 % Sodium Chloride Mini Bag 100 ML IVPB SCH ×3 (00:39→16:35)
[2019-12-12] MEDS: *HR* LORazepam 2 MG/ML VIAL IVP PRN ×3 (01:21→14:06)
[2019-12-12 01:46] LABS: Basophils % 0.3 %; Eosinophils # 0.6 K/mcL (0.0-0.6); Eosinophils % 4.8 %; Hematocrit 34.4 % (35.3-44.9); Hemoglobin 10.1 g/dL (11.5-15.4); Immature Granulocytes % 1.2 % (0-4); Lymphocytes # 2.5 K/mcL (0.6-4.6); Lymphocytes % 20.9 %; Mean Corpuscular HGB Conc 29.4 g/dL (31.6-35.5); Mean Corpuscular Hemoglobin 25.3 pg (28.0-33.3); Mean Platelet Volume 9.5 fL (9.4-12.4); Monocytes # 0.6 K/mcL (0.0-1.3); Monocytes % 5.2 %; Neutrophils # 8.1 K/mcL (1.6-8.9); Platelet Count 334 K/mcL (140-400); Segmented Neutrophils % 67.6 %
[2019-12-12 02:10] LABS: BUN/Creatinine Ratio 40 (6-26); Blood Urea Nitrogen 17 mg/dL (6-20); Calcium 8.3 mg/dL (8.6-10.3); Carbon Dioxide 33 mEq/L (23-29); Chloride 98 mEq/L (98-107); Creatine Kinase 4382 Units/L (30-223); Glucose 113 mg/dL (70-105); Magnesium 1.6 mg/dL (1.6-2.6); Osmolality,Calculated 288 (280-300); Potassium 3.9 mEq/L (3.5-5.1); Sodium 138 mEq/L (136-145); eGFR For African Americans > 60 (> 60); eGFR For Non-African Americans > 60 (> 60)
[2019-12-12] MEDS: *HR* Buprenorphine HCl 8 MG TAB.SUBL SL SCH (06:27)
[2019-12-12] MEDS: levETIRAcetam 250 MG TABLET PO SCH ×2 (06:28→17:00)
[2019-12-12] MEDS: *HR* Heparin 5,000 UNIT/ML VIAL SQ SCH ×2 (06:28→16:35)
[2019-12-12] MEDS: Ipratropium/Albuterol Neb 3 ML IH SCH ×2 (07:22→15:27)
[2019-12-12] MEDS: Budesonide/Formoterol 160/4.5 1 PUFF INH IH SCH (07:22)
[2019-12-12] MEDS: Nicotine 21 MG PATCH.TD24 TD SCH (09:32)
[2019-12-12 12:01] VITALS: BP 124/83
== END 2019-12-12 17:28 | disposition home or self-care (01) | DRG 133 ==
LOC: EMEROOARM 21:51 → ICNU 12-05 03:50 → SUATTDRO 12-05 03:50 → ICNU 12-05 04:30 → 2NNU 12-08 14:18
PROVIDERS: ADMIT Student in an Organized Health Care Education/Training Program; ATTEND Internal Medicine

== ENCOUNTER 2021-07-26 22:08 | Inpatient (IN) ==
[2021-07-26] MEDS ORDERED: *HR* LORazepam 2 MG/ML VIAL ONE (22:12)
[2021-07-26] MEDS ORDERED: *HR* LORazepam 2 MG/ML VIAL IVP ONE ×2 (22:15→22:45)
[2021-07-26] MEDS ORDERED: levETIRAcetam 1,000 MG in 0.9 % Sodium Chloride 100 ML IVPB ONE (22:15)
[2021-07-26 22:41] LABS: Mean Platelet Volume 9.5 fL (9.4-12.4); Red Cell Distribution Width 18.4 % (11.5-14.5)
[2021-07-26 22:43] LABS: Basophils # 0.1 K/mcL (0.0-0.2); Basophils % 0.3 %; Hemoglobin 12.3 g/dL (11.5-15.4); Immature Granulocytes % 1.1 % (0-4); Lymphocytes # 1.5 K/mcL (0.6-4.6); Lymphocytes % 5.6 %; Mean Corpuscular HGB Conc 30.8 g/dL (31.6-35.5); Mean Corpuscular Hemoglobin 26.9 pg (28.0-33.3); Mean Corpuscular Volume 87.5 fL (83.0-100.0); Monocytes # 0.9 K/mcL (0.0-1.3); Monocytes % 3.3 %; Neutrophils # 23.8 K/mcL (1.6-8.9); Platelet Count 363 K/mcL (140-400); Red Blood Count 4.57 M/mcL (3.82-4.97); Segmented Neutrophils % 89.7 %; White Blood Count 26.5 K/mcL (4.3-11.1)
[2021-07-26] MEDS ORDERED: Piperacillin/Tazobactam 3.375 GM in 0.9 % Sodium Chloride Mini Bag 100 ML IVPB ONE (22:48)
[2021-07-26 22:59] LABS: Platelet Estimate Normal (Normal)
[2021-07-26 23:01] LABS: VBG HCO3 13 mEq/L (21-27); VBG PCO2 30 mmHg (41-51); VBG PH 7.26 pH Units (7.32-7.42); VBG PO2 119 mmHg (25-50)
[2021-07-26] MEDS ORDERED: *HR* Midazolam HCl 50 MG/10 ML VIAL IVC ONE (23:11)
[2021-07-26 23:12] LABS: VBG HCO3 12 mEq/L (21-27); VBG PCO2 25 mmHg (41-51); VBG PH 7.29 pH Units (7.32-7.42); VBG PO2 228 mmHg (25-50)
[2021-07-26 23:16] LABS: Potassium 3.9 mEq/L (3.5-5.1)
[2021-07-26] MEDS ORDERED: 0.9 % Sodium Chloride 1,000 ML IVC ONE (23:16)
[2021-07-26] MEDS: Midazolam HCl 50 MG/100 ML IV.SOLN IVC SCH (23:20)
[2021-07-26] MEDS ORDERED: Piperacillin/Tazobactam 3.375 GM VIAL ONE (23:38)
[2021-07-26 23:41] LABS: Magnesium 2.3 mg/dL (1.6-2.6)
[2021-07-26 23:45] LABS: ABG Base Excess 1 mEq/L (-2 to 3); ABG HCO3 25 mEq/L (21-27); ABG Oxygen Saturation 100 % (95-98); ABG PCO2 37 mmHg (35-45); ABG PH 7.44 pH Units (7.32-7.45); ABG PO2 622 mmHg (85-104); ABG TCO2 26 mEq/L (20-26); Blood Gas Modality ASSIST CONTROL; Blood Gas VT 350 cc
[2021-07-27 01:04] LABS: Amphetamine Screen,Urine Negative ng/mL (Cutoff=1000); Barbiturate Screen,Urine Negative ng/mL (Cutoff=200); Benzodiazepines Screen,Urine Negative ng/mL (Cutoff=200); Cannabinoid Screen,Urine Positive ng/mL (Cutoff = 50); Cocaine Screen,Urine Negative ng/mL (Cutoff= 300); Opiate Screen,Urine Negative ng/mL (Cutoff=300); Phencyclidine Screen,Urine Negative ng/mL (Cutoff=25)
[2021-07-27 01:07] LABS: Bilirubin,Urine Negative (Negative); Blood,Urine Small (Negative); Clarity,Urine Clear (Clear); Color,Urine Yellow (Yellow); Glucose,Urine (UA) Normal (Normal); Hyaline Casts,Urine Moderate per lpf (None Seen); Ketones,Urine Negative (Negative); Leukocyte Esterase,Urine Negative (Negative); Mucus,Urine Few per lpf (None-Few); Nitrite,Urine Negative (Negative); Protein,Urine >=300 mg/dL (Neg-Trace); Specific Gravity,Urine 1.026 (1.010-1.025); Squamous Epithelial Cell,Urine Few per hpf (None-Few); Urobilinogen,Urine Normal (Normal); WBC,Urine 0-3 per hpf (0-3)
[2021-07-27] MEDS ORDERED: *HR* FentaNYL (PF) 100 MCG/2 ML VIAL IVP ONE ×2 (01:43→02:34)
[2021-07-27] MEDS ORDERED: *HR* FentaNYL (PF) 100 MCG/2 ML VIAL ONE (02:36)
[2021-07-27 04:23] LABS: Adenovirus Not Detected (Not Detect); Bordetella Pertussis Not Detected (Not Detect); Chlamydophila pneumoniae Not Detected (Not Detect); Coronavirus 229E Not Detected (Not Detect); Coronavirus HKU1 Not Detected (Not Detect); Coronavirus NL63 Not Detected (Not Detect); Coronavirus OC43 Not Detected (Not Detect); Human Metapneumovirus Not Detected (Not Detect); Human Rhinovirus/Enterovirus Not Detected (Not Detect); Influenza A Subtype 2009 H1 Not Detected (Not Detect); Influenza B Not Detected (Not Detect); Mycoplasma pneumoniae Not Detected (Not Detect); Parainfluenza Virus 1 Not Detected (Not Detect); Parainfluenza Virus 2 Not Detected (Not Detect); Parainfluenza Virus 3 Not Detected (Not Detect); Parainfluenza Virus 4 Not Detected (Not Detect); Respiratory Syncytial Virus Not Detected (Not Detect); SARS-CoV-2 Not Detected (Not Detect)
[2021-07-27] MEDS: Midazolam HCl 50 MG/100 ML IV.SOLN IVC SCH ×2 (05:04→11:05)
[2021-07-27 05:12] LABS: ABG Base Excess 0 mEq/L (-2 to 3); ABG HCO3 26 mEq/L (21-27); ABG Oxygen Saturation 97 % (95-98); ABG PCO2 43 mmHg (35-45); ABG PH 7.39 pH Units (7.32-7.45); ABG PO2 88 mmHg (85-104); ABG TCO2 27 mEq/L (20-26); Blood Gas VT 400 cc
[2021-07-27] MEDS: *HR* Heparin 5,000 UNIT/ML VIAL SQ SCH ×2 (05:16→18:30)
[2021-07-27 05:57] LABS: Basophils % 0.2 %; Eosinophils % 0.1 %; Hematocrit 34.7 % (35.3-44.9); Hemoglobin 11.7 g/dL (11.5-15.4); Immature Granulocytes % 0.7 % (0-4); Lymphocytes # 2.5 K/mcL (0.6-4.6); Lymphocytes % 13.7 %; Mean Corpuscular HGB Conc 33.7 g/dL (31.6-35.5); Mean Corpuscular Hemoglobin 27.7 pg (28.0-33.3); Mean Platelet Volume 10.1 fL (9.4-12.4); Monocytes # 0.9 K/mcL (0.0-1.3); Monocytes % 4.9 %; Neutrophils # 14.6 K/mcL (1.6-8.9); Platelet Count 263 K/mcL (140-400); Red Blood Count 4.23 M/mcL (3.82-4.97); Red Cell Distribution Width 17.6 % (11.5-14.5); Segmented Neutrophils % 80.4 %; White Blood Count 18.1 K/mcL (4.3-11.1)
[2021-07-27 05:58] LABS: BUN/Creatinine Ratio 14 (6-26); Blood Urea Nitrogen 11 mg/dL (6-20); Calcium 8.3 mg/dL (8.6-10.3); Carbon Dioxide 21 mEq/L (23-29); Chloride 107 mEq/L (98-107); Glucose 105 mg/dL (70-105); Osmolality,Calculated 284 (280-300); Potassium 4.7 mEq/L (3.5-5.1); Sodium 137 mEq/L (136-145); eGFR For African Americans > 60 (> 60); eGFR For Non-African Americans > 60 (> 60)
[2021-07-27] MEDS: Piperacillin/Tazobactam 3.375 GM in 0.9 % Sodium Chloride Mini Bag 100 ML IVPB SCH ×3 (08:30→23:34)
[2021-07-27] MEDS: Dexmedetomidine HCl 400 MCG/100 ML MLS IVC SCH (11:36)
[2021-07-27] MEDS ORDERED: Artificial Tears SOLN 15 ML BOTTLE BOTH EYES PRN (11:59)
[2021-07-27] MEDS ORDERED: levETIRAcetam 1,000 MG in 0.9 % Sodium Chloride 100 ML IVPB ONE (12:04)
[2021-07-27] MEDS: Artificial Tears SOLN 15 ML BOTTLE BOTH EYES SCH ×4 (13:26→23:31)
[2021-07-27] MEDS ORDERED: Acetaminophen 325 MG TABLET PO PRN (19:07)
[2021-07-27] MEDS ORDERED: Chlorhexidine Rinse 15 ML MOUTHWASH MM SCH (21:00)
[2021-07-28] MEDS: Artificial Tears SOLN 15 ML BOTTLE BOTH EYES SCH ×2 (04:07→09:42)
[2021-07-28] MEDS: *HR* Heparin 5,000 UNIT/ML VIAL SQ SCH ×2 (05:52→18:22)
[2021-07-28] MEDS ORDERED: Albuterol 2.5 MG/3 ML NEBULIZER IH PRN (08:55)
[2021-07-28] MEDS ORDERED: hydrOXYzine pamoate 25 MG CAPSULE PO PRN (09:22)
[2021-07-28] MEDS: Piperacillin/Tazobactam 3.375 GM in 0.9 % Sodium Chloride Mini Bag 100 ML IVPB SCH ×2 (09:41→16:58)
[2021-07-28] MEDS: Dexmedetomidine HCl 400 MCG/100 ML MLS IVC SCH (09:42)
[2021-07-28] MEDS: Acetaminophen 325 MG TABLET PO PRN ×2 (09:59→20:05)
[2021-07-28] MEDS: QUEtiapine Fumarate 25 MG TABLET PO SCH ×2 (10:00→20:05)
[2021-07-28] MEDS: levETIRAcetam 250 MG TABLET PO SCH ×2 (10:00→20:06)
[2021-07-28] MEDS: Budesonide/Formoterol 160/4.5 1 PUFF INH IH SCH ×2 (11:28→20:16)
[2021-07-28] MEDS: Acetaminophen/Butalbital/CaffeineTABLET PO PRN (16:57)
[2021-07-29] MEDS: Piperacillin/Tazobactam 3.375 GM in 0.9 % Sodium Chloride Mini Bag 100 ML IVPB SCH ×2 (00:02→07:28)
[2021-07-29] MEDS: Acetaminophen/Butalbital/CaffeineTABLET PO PRN ×2 (00:35→11:47)
[2021-07-29] MEDS ORDERED: Acetaminophen IV 500 MG/50 ML BAG IVPB ONE (02:36)
[2021-07-29] MEDS ORDERED: Ondansetron 4 MG/2 ML VIAL IVP ONE (03:26)
[2021-07-29] MEDS: *HR* Heparin 5,000 UNIT/ML VIAL SQ SCH (05:43)
[2021-07-29] MEDS: levETIRAcetam 250 MG TABLET PO SCH (07:27)
[2021-07-29] MEDS: QUEtiapine Fumarate 25 MG TABLET PO SCH (07:28)
[2021-07-29] MEDS: Budesonide/Formoterol 160/4.5 1 PUFF INH IH SCH (07:44)
[2021-07-29 11:14] VITALS: BP 130/85; PULSE 74; TEMP 98.2; O2SAT 91
== END 2021-07-29 12:30 | disposition home or self-care (01) | DRG 53 ==
LOC: EMEROOARM 22:08 → ICNU 07-27 03:05 → 2ANU 07-28 08:46
PROVIDERS: ADMIT Internal Medicine; ATTEND Internal Medicine